=== PATIENT | female | born 1935 | race African-American/Black ===

== ENCOUNTER 2018-02-25 13:54 | Inpatient (IN) | payer MEDICARE ==
--- NOTE | 2018-02-25 15:00 | RAD ---
LEFT HIP 2 VIEWS: Date: 02/25/18 HISTORY: Leg pain. COMPARISON: None. FINDINGS: There is a mildly displaced left femoral neck fracture with impaction and mild varus angulation. The obturator ring appears to be intact. Moderate vascular calcifications. Mild soft tissue edema. IMPRESSION: Mildly impacted, varus angulated, and displaced left femoral neck fracture. POS: [facility]
[2018-02-25 15:02] LABS: Bilirubin Negative (Negative); Blood, Urine Moderate (Negative); Clarity CLOUDY (Clear); Glucose, Urine (Dipstick) Negative (Negative); Leukocyte Large (Negative); Nitrite Positive (Negative); Protein, Urine (Dipstick) 100 mg/dL (Neg-Trace); Specific Gravity, Urine 1.021 (1.002-1.036)
[2018-02-25 15:09] LABS: Bacteria/HPF 2+ HPF (None Seen); Hyaline Casts/LPF 0-3 HYALINE CAST LPF (0-3 Hyaline); Pathc Cast-AUWi Flag 0.43 (0-2.49); Squamous Epithelial None Seen HPF (0-3); WBC/HPF 21-50 HPF (0-3)
[2018-02-25] MEDS ORDERED: hydrALAZINE 20 MG/ML VIAL ONE (16:13)
[2018-02-25 16:45] LABS: #Eosinphils 0.3 thou/uL (0.0-0.7); #Monocytes 0.7 thou/uL (0.11-0.59); #Neutrophils 6.7 thou/uL (1.40-6.50); %Basophils 0.4 % (0.0-1.0); %Eosinophils 3.2 % (0.0-10.0); %Lymphocytes 11.1 % (21.0-51.0); %Monocytes 7.8 % (0.0-10.0); %Neutrophils 77.6 % (42.0-75.0); Hemoglobin 12.6 g/dL (12.0-16.0); Mean Corpuscular HGB CONC 32.9 g/dL (32.0-36.0); Mean Corpuscular Hemoglobin 28.5 pg (27.0-31.0); Mean Corpuscular Volume 86.7 fl (81.0-99.0); Mean Platelet Volume 8.6 fL (7.4-10.4); Platelet Count 195 thou/uL (130-400); RBC Distribution Width 13.6 % (11.5-14.5); Red Blood Cell (RBC) Count 4.43 mill/uL (4.20-5.40); White Blood Cell (WBC) Count 8.6 thou/uL (4.8-10.8)
[2018-02-25] MEDS ORDERED: cefTRIAXone\\ROCEPHIN 2 GM VIAL ONE (17:01)
[2018-02-25 17:11] LABS: ALT (SGPT) 17 U/L (8-55); AST (SGOT) 23 U/L (5-34); Alkaline Phosphatase 77 U/L (40-150); Anion Gap 15 mmol/L (10-20); BUN (Urea Nitrogen) 21 mg/dL (9.8-20.1); Bilirubin, Total 0.8 mg/dL (0.2-1.2); Calc. Creatinine Clearance 0 mL/min (70-130); Carbon Dioxide 23 mmol/L (23-31); Chloride 104 mmol/L (98-107); Estimated GFR-MDRD 50; Globulin 4.5 g/dL (2.4-3.5); Glucose 120 mg/dL (83-110); Potassium 3.8 mmol/L (3.5-5.1); Protein, Total 8.5 g/dL (6.0-8.3); Sodium 138 mmol/L (136-145)
[2018-02-25] MEDS ORDERED: Fentanyl 100 MCG/2 ML VIAL ONE (17:16)
--- NOTE | 2018-02-25 18:06 | ULT ---
LEFT LOWER EXTREMITY VENOUS DOPPLER ULTRASOUND 02/25/18 COMPARISON: None. HISTORY: Pain, hip fracture. TECHNIQUE: Multiplanar alexander scale sonographic imaging of the venous structures of the left lower extremity obtai cynthia with color flow and spectral analysis. FINDINGS: Left common femoral vein, greater saphenous vein, profunda femoral vein, femoral vein, popliteal vein , and posterior tibial vein appear patent. No evidence for DVT. IMPRESSION: No evidence for deep venous thrombosis of the left lower extremity. POS: [facility]
[2018-02-25] MEDS ORDERED: Lorazepam 2 MG/ML VIAL ONE (18:27)
[2018-02-25] MEDS ORDERED: Promethazine HCl 25 MG/ML VIAL IM PRN ×2 (18:30)
[2018-02-25] MEDS ORDERED: Dextrose 5% in Water 1,000 ML IV PRN (18:30)
[2018-02-25] MEDS ORDERED: Ondansetron HCl/PF 4 MG/2 ML Vial IVP PRN (18:30)
[2018-02-25] MEDS ORDERED: Ondansetron ODT 4 MG TAB PO PRN (18:30)
[2018-02-25] MEDS ORDERED: Dextrose 50% Abboject 50 ML SYRINGE SLOW IVP PRN (18:30)
[2018-02-25 18:38] LABS: CKMB 1.6 ng/mL (0-6.6); Troponin I Less than 0.010 ng/mL (< 0.028)
[2018-02-25] MEDS ORDERED: CEFAZOLIN/Water 2 GM/20 ML SYRINGE SLOW IVP SCH (18:45)
--- NOTE | 2018-02-25 18:47 | RAD ---
FRONTAL RADIOGRAPH CHEST 02/25/18 COMPARISON: 07/11/14 HISTORY: Leg pain. FINDINGS: No pneumothorax, pleural fluid, focal consolidation, or alveolar edema. Midline sternotomy wires and mediastinal clips are present. A rounded area of increased density is noted at the left cardiophrenic angle suggesting hiatal hernia . IMPRESSION: No acute findings. POS: [facility]
[2018-02-25 19:17] LABS: PTT 26.8 SEC (22.9-36.1); Prothrombin Time 12.9 SEC (12.0-14.7)
[2018-02-25 19:28] LABS: Magnesium 1.8 mg/dL (1.6-2.6); Phosphorus 2.3 mg/dL (2.3-4.7)
--- NOTE | 2018-02-25 19:32 | CT ---
CT OF THE HEAD WITHOUT CONTRAST 02/25/18 COMPARISON: None. HISTORY: Fall, trauma, pain. TECHNIQUE: Serial axial CT imaging at 5 mm intervals from the vertex through the skull base without contrast. FINDINGS: The imaged paranasal sinuses and mastoid air cells are well aerated. There is atherosclerotic calcifi cation of the cavernous carotid arteries and the distal left vertebral artery. No displaced calvarial fracture is noted. There is diffuse cerebral volume loss with associated prominence of the CSF containing spaces. There is periventricular, deep, and subcortical white matter hypodensity noted, evidence of significant sma ll vessel disease. No intracranial hemorrhage. There is a focus of hypodensity in the right cerebella r hemisphere on image 12 suggesting an old lacunar infarction. IMPRESSION: Cerebral volume loss and small vessel disease with no displaced calvarial fracture or evidence of int racranial hemorrhage. POS: [facility]
[2018-02-25] MEDS: DEXTROSE 5% IVPB SCH (20:10)
[2018-02-25] MEDS: TRIMETHOPRIM IVPB SCH (20:10)
[2018-02-25] MEDS: SULFAMETHOXAZOLE IVPB SCH (20:10)
[2018-02-25] MEDS: Sodium Chloride 0.9% 1,000 ML IV SCH (20:10)
[2018-02-25] MEDS: WATER IVPB SCH (20:10)
[2018-02-25] MEDS: Atorvastatin Calcium 20 MG TAB PO SCH ×2 (22:32→22:42)
[2018-02-25] MEDS: Donepezil HCl 10 MG TAB PO SCH ×2 (22:32→22:42)
[2018-02-25] MEDS: Famotidine/PF 20 mg/2ml Vial SLOW IVP SCH (22:32)
--- NOTE | 2018-02-25 22:53 | CON ---
DATE OF CONSULTATION: 02/25/2018 PREOPERATIVE DIAGNOSIS: Left femoral neck fracture. HISTORY OF PRESENT ILLNESS: The patient is a poor historian with Alzheimer disease, who fell unwitne ssed in her own home and suffered a fracture of her femoral neck. History is complicated by the fact that she has fairly severe Alzheimer. PHYSICAL EXAMINATION: GENERAL: Shows a woman who is in no distress unless her left leg is moved. She is a very poor histo dionicio. She claims only be having pain in her left hip. EXTREMITIES: Shows her left leg is short. She has pain with any rotation of the hip. She has no pa lpable pulses in the left foot. DIAGNOSTIC DATA: Radiograph showed displaced femoral neck fracture. PLAN: Hemiarthroplasty of left hip. Family understands the risk of infection, stiffness, nerve or b lood vessel damage, blood clots, transfusion, . They would like to proceed with surgery.
[2018-02-26] MEDS: Acetaminophen 1,000 MG in Premix Bag 1 BAG IVPB SCH ×5 (00:07→23:44)
--- NOTE | 2018-02-26 00:39 | HP ---
DATE OF ADMISSION: 02/25/2018 ATTENDING PHYSICIAN: Dr. Ennis. TRAUMA ACTIVATION: Not applicable. HISTORY OF PRESENT ILLNESS: Melissa uYen is an 82-year-old female with a past medical history of v ascular dementia, who presented to [facility] with a chief complaint of left leg pain. Per yifan noble's spouse at bedside, he found her on the floor 2-3 days ago. She has been immobile since. He brou ght her to the emergency room today for further evaluation and care. She was found to have a left hi p fracture. Orthopedic Surgery was notified and Trauma Services was asked to admit. Upon my evaluat ion, the patient is unable to vocalize exactly where her pain is at. She has a GCS of 14 secondary t o confusion. states her mental status is at baseline. Past medical history obtained primari ly from the ; however, he was unable to give the majority of the history. PAST MEDICAL HISTORY: Hyperlipidemia; dementia; peripheral vascular disease, status post stenting of the left lower extremity. HOME MEDICATIONS: Atorvastatin 20 mg p.o. at bedtime, Aricept 5 mg p.o. daily, ASA 81 mg p.o. daily, vitamin D3 daily. PAST SURGICAL HISTORY: The patient has a history of left lower extremity stenting and an unknown abd ominal surgery. There is history of CABG according to history and physical in 2013. SOCIAL HISTORY: The patient lives at home with , ambulates independently. 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 No alcohol or illicit drug use. FAMILY HISTORY: Unobtainable. REVIEW OF SYSTEMS: Unobtainable. PHYSICAL EXAMINATION: VITAL SIGNS: Temperature 98.6, respirations 16, O2 sat 94% on room air, blood pressure 182/76, pulse 103. GENERAL: Well-developed elderly appearing female, somewhat disheveled, in no acute distress, resting in bed. HEENT: Normocephalic, atraumatic. NECK: Supple. Trachea is midline. There was no midline tenderness to palpation. CHEST: Atraumatic. No tenderness to palpation. Normal work of breathing, symmetric rise. LUNGS: Clear to auscultation bilaterally. CARDIOVASCULAR: Mildly tachycardic. No obvious murmurs, rubs, or gallops. ABDOMEN: Soft, nontender, nondistended. Bowel sounds are positive. MUSCULOSKELETAL: Bilateral upper extremities within normal limits. Left lower extremity shortened a nd externally rotated. Bilateral stasis dermatitis. She is neurovascularly intact distally at the s ite of her injury. Range of motion of left lower extremity is limited secondary to pain. NEUROLOGIC: GCS is 14 secondary to confusion. No focal deficit is noted. LABORATORY DATA: WBC 8.6, hemoglobin 12.6, hematocrit 38.4, platelet count 195. Sodium 138, chlorid e 104, potassium 3.8, carbon dioxide 23, BUN 21, creatinine 1.25, glucose 120. AST and ALT within no rmal limits. CK is 213. Troponin is less than 0.010. Urinalysis demonstrated proteinuria, moderate blood, positive urobilinogen, large amount of leukocyte esterase, positive nitrites, 21-50 wbc's, 2+ bacteria. RADIOGRAPHIC FINDINGS: X-ray of the left hip demonstrated a left femoral neck fracture. Ultrasound of the left lower extremity was negative for evidence of DVT. CT of the brain was negative for acute intracranial abnormality per radiology read, did show diffuse volume loss and evidence of previous s troke. EKG results, pending. ASSESSMENT: 1. Status post unwitnessed fall. 2. Left femoral neck fracture. 3. Acute traumatic pain. 4. Urinary tract infection, present on admission. 5. Acute kidney injury, present on admission. 6. Hypertension, present on admission. 7. History of dementia. 8. History of coronary artery disease. PLAN: 1. Admit to Trauma Services. 2. Orthopedic surgery has seen and evaluated the patient. Per discussion with Dr. Meier, he plans for operative intervention tomorrow. The patient should be n.p.o. after midnight. Gentle IV fluid h ydration. Empiric antibiotics for urinary tract infection. Follow culture data. P.O. and IV analge gurpreet perioperatively. Postoperative PT and OT. Case management postoperatively for eventual disposit ion 3. Deep venous thrombosis and gastritis prophylaxis as appropriate. The patient has been seen and e valuated with Dr. Ennis. Plans for admission were discussed with the patient and family. All questi ons were answered at the time of this dictation.
[2018-02-26 05:39] LABS: #Eosinphils 0.2 thou/uL (0.0-0.7); #Neutrophils 5.4 thou/uL (1.40-6.50); %Basophils 0.3 % (0.0-1.0); %Eosinophils 2.7 % (0.0-10.0); %Lymphocytes 13.3 % (21.0-51.0); %Monocytes 12.7 % (0.0-10.0); %Neutrophils 70.9 % (42.0-75.0); Hemoglobin 12.9 g/dL (12.0-16.0); Mean Corpuscular HGB CONC 32.2 g/dL (32.0-36.0); Mean Corpuscular Hemoglobin 28.3 pg (27.0-31.0); Mean Platelet Volume 9.3 fL (7.4-10.4); Platelet Count 159 thou/uL (130-400); RBC Distribution Width 13.6 % (11.5-14.5); Red Blood Cell (RBC) Count 4.55 mill/uL (4.20-5.40); White Blood Cell (WBC) Count 7.6 thou/uL (4.8-10.8)
[2018-02-26 05:53] LABS: Anion Gap 15 mmol/L (10-20); BUN (Urea Nitrogen) 16 mg/dL (9.8-20.1); Calc. Creatinine Clearance 0 mL/min (70-130); Calcium 9.1 mg/dL (7.8-10.44); Carbon Dioxide 21 mmol/L (23-31); Chloride 105 mmol/L (98-107); Estimated GFR-MDRD 69; Glucose 99 mg/dL (83-110); Potassium 3.8 mmol/L (3.5-5.1); Sodium 137 mmol/L (136-145)
[2018-02-26 06:11] VITALS: BMI 20.8
[2018-02-26] MEDS: DEXTROSE 5% IVPB SCH (08:55)
[2018-02-26] MEDS: SULFAMETHOXAZOLE IVPB SCH (08:55)
[2018-02-26] MEDS: TRIMETHOPRIM IVPB SCH (08:55)
[2018-02-26] MEDS: WATER IVPB SCH (08:55)
[2018-02-26] MEDS ORDERED: CEFAZOLIN/Water 2 GM/20 ML SYRINGE ONE (09:55)
[2018-02-26] MEDS ORDERED: Milk Of Magnesia 30 ML UDCUP PO PRN (10:45)
[2018-02-26] MEDS ORDERED: Fleet Enema 133 ML BOT PR PRN (10:45)
[2018-02-26] MEDS ORDERED: traMADol HCl 50 MG TAB PO PRN ×2 (10:45)
[2018-02-26] MEDS ORDERED: Ondansetron ODT 4 MG TAB PO PRN (10:45)
[2018-02-26] MEDS ORDERED: Tranexamic Acid 1,000 MG in Sodium Chloride 0.9% 100 ML IVPB SCH (10:45)
[2018-02-26] MEDS ORDERED: Bisacodyl 10 MG SUPP PR PRN (10:45)
[2018-02-26] MEDS ORDERED: Ondansetron HCl/PF 4 MG/2 ML Vial IVP PRN (10:45)
[2018-02-26] MEDS ORDERED: Cepastat Lozenges 1 LOZ PO PRN (10:45)
[2018-02-26] MEDS ORDERED: Fentanyl 100 MCG/2 ML VIAL ONE (10:54)
--- NOTE | 2018-02-26 12:49 | PRG ---
DATE OF SERVICE: 02/26/2018 ATTENDING PHYSICIAN: Dr. Ethan Ennis. SUBJECTIVE: Ms. Yuen is an 82-year-old female, who was admitted last p.m. after a ground level fal l 2-3 days ago. She had been immobile since the fall. She was taken to the Emergency Department whe re she was found to have a left hip fracture. She was admitted by Trauma Services. She was started on Bactrim for urinary tract infection present on admission. She has been stable overnight. She was evaluated by Dr. Meier, Orthopedic Surgery, and is scheduled for the operating room for fixation of her hip fracture today. OBJECTIVE: VITAL SIGNS: Temperature 98, pulse 81, respirations 16, O2 sat 98% on room air, and blood pressure 1 78/82. GENERAL: Elderly female lying in bed in no acute distress. HEENT: Atraumatic, normocephalic. PULMONARY: Bilateral breath sounds clear. No respiratory distress. HEART: Regular rate and rhythm. Heart sounds normal. ABDOMEN: Soft, nontender, nondistended. MUSCULOSKELETAL: Pain with movement of left hip. Neurovascular intact all extremities. NEUROLOGIC: GCS 14, E4, V4, M6. ASSESSMENT: 1. Status post unwitnessed fall. 2. Left femoral neck fracture. 3. Urinary tract infection, present on admission. 4. Acute kidney injury, present on admission, improving. 5. Hypertension, present on admission. 6. History of dementia. 7. History of coronary artery disease. PLAN: 1. The patient to go to OR today for fixation of fracture with Dr. Meier. 2. Resume home medications, we will return to the floor. 3. N.p.o. until after surgery. 4. Continue antibiotics for urinary tract infection. 5. Follow up on final urine culture. 6. Ultram as scheduled for pain control. 7. PT, OT evaluation after OR. 8. Case management consult for discharge planning. Anticipate patient will need nursing home fac ility or rehabilitation. The patient was reviewed with Dr. Ennis, who agrees with plan.
[2018-02-26] MEDS: hydrALAZINE 20 MG/ML VIAL SLOW IVP PRN (13:25)
--- NOTE | 2018-02-26 14:03 | RAD ---
LEFT HIP 2 VIEWS: Date: 02/26/18 HISTORY: Postop. FINDINGS: A total hip prosthesis has been placed, which is in good position. No evidence of fracture. IMPRESSION: 1. Placement of total hip prosthesis. 2. Incidental note is made of stents within the superficial femoral artery. POS: [facility]
--- NOTE | 2018-02-26 14:13 | OP ---
PREOPERATIVE DIAGNOSIS: Femoral neck fracture, left. POSTOPERATIVE DIAGNOSIS: Femoral neck fracture, left. SURGEON: Tom Meier M.D. ANESTHESIA: General. BLOOD LOSS: 150 mL. SPECIMEN: None. DRAINS: None. COMPLICATIONS: None. IMPLANTS USED: Ludmila Accolade 3.5 stem with a -4 neck, 47 mm Unitrax head. PROCEDURE IN DETAIL: After informed consent was obtained in the preoperative holding area, the patie nt was taken to the operative suite where general anesthesia was induced. The patient was then posit ioned in the lateral decubitus position. The hip was then prepped and draped in usual sterile fashio n. The patient received preoperative antibiotics. Prior to incision, time-out was called and all me mbers of the surgical team agreed upon site, surgeon, and patient. After this, a longitudinal incisi on was made directly over the trochanter, noted by palpation extending 2 fingerbreadths above and bel ow the trochanter. The deeper subcutaneous layer was undermined with Bovie electrocautery. The ilio tibial band was encountered and incised sharply and the plane below this was developed bluntly. [facility] to hold this opened. The lateral aspect of the trochanter and the abduct or muscles were encountered and then reflected anteriorly off the trochanter using Bovie electrocaute ry. Once this was completed, the anterior capsule was then encountered and identified and copious ca psulotomy was carried out, exposing the femoral neck and head. Dislocation maneuver was then performe d and an in situ provisional neck cut was then made using the oscillating saw. Attention was then tu rned to acetabular preparation and sequential reaming was carried out up to the appropriate diameter and a trial was then malleted into place with good firm resistance and no pullout. The permanent tavia tabular shell was then malleted squarely into place, as was the appropriate liner. Once completed, t he wound was copiously irrigated and attention was then turned to femoral preparation. Flexion and ex ternal rotation was performed of the exposed thigh and femoral elevators were then placed at the prox imal aspect of the wound. Canal finder was used to establish the length of the canal and sequential reaming was carried out, followed by broaching. Once the appropriate stability was established with the trial broaches with both flexion, extension and rotational stability, we did trial with neutral a nd 2 mm offset incremental necks. Once the appropriate size was decided upon, with good stability no milly with flexion, extension, internal and external rotation and shuck being negative, we removed the femoral trial broach and malletted into place the permanent prosthesis with good firm fit, which was also stable to rotation. Again, the hip felt very stable to flexion, extension, internal and externa l rotation. Leg lengths appeared near anatomic clinically and we were quite happy with prosthesis pl acement. Copious irrigation was then carried out through the entirety of the wound. Primary closure of the abductors was accomplished with interrupted #2 Vicryl [id number] stitches and the IT ban d was then closed with interrupted #2 Vicryl, oversewn with a #2 running barbed Quill stitch. Subcut aneous fascia was closed with running barbed Quill stitch and a subcuticular Monocryl barbed Quill st itch was used for skin closure and augmented with skin cement. A sterile dressing was applied. The p rocedure was terminated without any complication. All counts were correct. The patient was awakened in the operative suite and taken to the recovery room in stable condition.
[2018-02-26] MEDS ORDERED: Glycopyrrolate 0.2 MG/ML 5 ML SYRINGE ONE (15:14)
[2018-02-26] MEDS ORDERED: PHENYLEPHRINE-NS 100 MCG/ML 10 ML SYRINGE ONE (15:14)
[2018-02-26] MEDS ORDERED: Lidocaine 1% PF 5 ML VIAL ONE (15:14)
[2018-02-26] MEDS ORDERED: ePHEDrine/0.9% NaCl/PF SYRINGE 50 mg/10 ml ONE (15:14)
[2018-02-26] MEDS ORDERED: PROPOFOL 200 MG/20 ML VIAL ONE (15:14)
[2018-02-26] MEDS: Donepezil HCl 10 MG TAB PO SCH ×2 (16:59→20:27)
[2018-02-26] MEDS: Amlodipine 5 MG TAB PO SCH (16:59)
[2018-02-26] MEDS: Sodium Chloride 0.9% 1,000 ML IV SCH (16:59)
[2018-02-26] MEDS: CEFAZOLIN/Water 2 GM/20 ML SYRINGE SLOW IVP SCH (18:17)
[2018-02-26] MEDS: D5 1/2 NS w/20 mEq KCL 1,000 ML IV SCH (18:19)
[2018-02-26] MEDS: Atorvastatin Calcium 20 MG TAB PO SCH (20:27)
[2018-02-26] MEDS: Aspirin 325 MG TAB PO SCH (20:27)
[2018-02-26] MEDS: Senokot S 8.6-50 MG TAB PO SCH (20:28)
[2018-02-26] MEDS: Famotidine/PF 20 mg/2ml Vial SLOW IVP SCH (20:28)
[2018-02-27] MEDS: D5 1/2 NS w/20 mEq KCL 1,000 ML IV SCH (02:56)
[2018-02-27] MEDS: CEFAZOLIN/Water 2 GM/20 ML SYRINGE SLOW IVP SCH (02:57)
[2018-02-27 04:44] LABS: #Eosinphils 0.2 thou/uL (0.0-0.7); #Lymphocytes 0.8 thou/uL (1.20-3.40); #Monocytes 0.9 thou/uL (0.11-0.59); #Neutrophils 6.5 thou/uL (1.40-6.50); %Basophils 0.4 % (0.0-1.0); %Eosinophils 2.8 % (0.0-10.0); %Lymphocytes 9.1 % (21.0-51.0); %Monocytes 10.5 % (0.0-10.0); %Neutrophils 77.3 % (42.0-75.0); Hemoglobin 11.3 g/dL (12.0-16.0); Mean Corpuscular HGB CONC 32.5 g/dL (32.0-36.0); Mean Corpuscular Hemoglobin 28.5 pg (27.0-31.0); Mean Corpuscular Volume 87.5 fl (81.0-99.0); Mean Platelet Volume 8.9 fL (7.4-10.4); Platelet Count 199 thou/uL (130-400); RBC Distribution Width 13.5 % (11.5-14.5); Red Blood Cell (RBC) Count 3.98 mill/uL (4.20-5.40); White Blood Cell (WBC) Count 8.4 thou/uL (4.8-10.8)
[2018-02-27 05:02] LABS: Anion Gap 15 mmol/L (10-20); BUN (Urea Nitrogen) 13 mg/dL (9.8-20.1); Calc. Creatinine Clearance 32 mL/min (70-130); Calcium 8.6 mg/dL (7.8-10.44); Carbon Dioxide 19 mmol/L (23-31); Chloride 105 mmol/L (98-107); Estimated GFR-MDRD 47; Glucose 116 mg/dL (83-110); Potassium 4.1 mmol/L (3.5-5.1); Sodium 135 mmol/L (136-145)
[2018-02-27] MEDS ORDERED: Acetaminophen 325 MG TAB PO PRN (06:00)
[2018-02-27] MEDS: Aspirin 325 MG TAB PO SCH ×2 (08:23→20:00)
[2018-02-27] MEDS: Senokot S 8.6-50 MG TAB PO SCH ×2 (08:23→20:03)
[2018-02-27] MEDS: Ferrous Gluconate 324 MG TAB PO SCH ×2 (08:23→18:41)
[2018-02-27] MEDS: Multivitamin W/ Minerals 1 TAB PO SCH (08:24)
[2018-02-27] MEDS: Donepezil HCl 10 MG TAB PO SCH ×2 (08:24→21:13)
[2018-02-27] MEDS: Amlodipine 5 MG TAB PO SCH (08:24)
[2018-02-27 09:30] LABS: Magnesium 1.7 mg/dL (1.6-2.6); Phosphorus 3.1 mg/dL (2.3-4.7)
[2018-02-27] MEDS ORDERED: Magnesium Sulfate 2 GM in Sodium Chloride 0.9% 100 ML IVPB SCH (13:15)
--- NOTE | 2018-02-27 13:29 | PRG ---
DATE OF SERVICE: 02/27/2018 ATTENDING PHYSICIAN: Dr. Ethan Ennis. SUBJECTIVE: Ms. Yuen is an 82-year-old female, who has had a ground-level fall 2 days ago. She is now postoperative day #1, status post left hip hemiarthroplasty. [facility] She is currently being treated for urinary tract infection that was present on admission. Repeat labs this morning show an elevation in her creatinine from 0.94-1.30. Pain has been well cont rolled with IV and oral analgesia. OBJECTIVE: VITAL SIGNS: Temperature 97.9, pulse 88, respirations 16, O2 sat 99% room air, blood pressure 192/83 . GENERAL: Elderly female lying in bed in no acute distress. HEENT: Atraumatic, normocephalic. PULMONARY: Bilateral breath sounds clear. No respiratory distress. CARDIOVASCULAR: Regular rate and rhythm. Heart sounds normal. ABDOMEN: Soft, nontender, nondistended. MUSCULOSKELETAL: Surgical dressing to left hip, clean, dry, and intact. Neurovascularly intact in a ll extremities. Cap refill brisk in all extremities. NEUROLOGIC: GCS of 14. LABORATORY DATA: Hematology: WBC 8.4, RBC 3.98, hemoglobin 11.3, hematocrit 34.9, platelets 199. C hemistry: Sodium 135, potassium 4.1, chloride 105, carbon dioxide 19, BUN 13, creatinine 1.30, gluco se 116, calcium 8.6, phosphorus 3.1, magnesium 1.7. ASSESSMENT: 1. Status post unwitnessed fall. 2. Left femoral neck fracture. 3. Postoperative day #1 status post left hip hemiarthroplasty. 4. Urinary tract infection, present on admission. 5. Acute kidney injury, present on admission. 6. Hypertension, present on admission. 7. History of dementia, present on admission. 8. History of coronary artery disease. 9. Hypomagnesemia. 10. Acute traumatic pain. PLAN: 1. Transition from IV to oral antibiotics. 2. Correct electrolyte imbalances. 3. Continue regular diet. 4. Add Ensure for supplementation. 5. Ultram scheduled and p.r.n. for pain control. 6. Schedule Tylenol. 7. Continue PT/OT evaluation. 8. Case management consult for discharge planning. Anticipate patient will need penitentiary fac ility. The patient was seen and examined with Dr. Ennis, who agrees with plan.
[2018-02-27] MEDS ORDERED: Magnesium 2 GM/NS 0.9% 100 ML 2 GM in Premix Bag 1 BAG IVPB SCH (13:30)
[2018-02-27] MEDS: Acetaminophen 500 MG TAB PO SCH ×2 (13:57→18:42)
[2018-02-27] MEDS: traMADol HCl 50 MG TAB PO SCH ×2 (13:57→18:40)
[2018-02-27] MEDS: Famotidine 20 MG TAB PO SCH (20:03)
[2018-02-27] MEDS: Atorvastatin Calcium 20 MG TAB PO SCH (20:03)
[2018-02-27] MEDS: Sulfameth/Trimethoprim DS 800-160mg TAB PO SCH (20:04)
[2018-02-28] MEDS: traMADol HCl 50 MG TAB PO SCH ×4 (01:02→18:51)
[2018-02-28] MEDS: Acetaminophen 500 MG TAB PO SCH ×4 (01:02→18:51)
[2018-02-28 05:37] LABS: #Eosinphils 0.2 thou/uL (0.0-0.7); #Lymphocytes 0.8 thou/uL (1.20-3.40); #Monocytes 0.9 thou/uL (0.11-0.59); #Neutrophils 7.5 thou/uL (1.40-6.50); %Basophils 0.5 % (0.0-1.0); %Monocytes 9.4 % (0.0-10.0); %Neutrophils 80.2 % (42.0-75.0); Hemoglobin 10.2 g/dL (12.0-16.0); Mean Corpuscular Hemoglobin 28.3 pg (27.0-31.0); Mean Corpuscular Volume 88.3 fl (81.0-99.0); Mean Platelet Volume 8.5 fL (7.4-10.4); Platelet Count 211 thou/uL (130-400); RBC Distribution Width 13.5 % (11.5-14.5); Red Blood Cell (RBC) Count 3.62 mill/uL (4.20-5.40); White Blood Cell (WBC) Count 9.4 thou/uL (4.8-10.8)
[2018-02-28 06:02] LABS: Anion Gap 13 mmol/L (10-20); BUN (Urea Nitrogen) 19 mg/dL (9.8-20.1); Calc. Creatinine Clearance 32 mL/min (70-130); Calcium 8.9 mg/dL (7.8-10.44); Carbon Dioxide 21 mmol/L (23-31); Chloride 106 mmol/L (98-107); Estimated GFR-MDRD 48; Glucose 113 mg/dL (83-110); Magnesium 2.1 mg/dL (1.6-2.6); Phosphorus 3.4 mg/dL (2.3-4.7); Potassium 4.5 mmol/L (3.5-5.1); Sodium 135 mmol/L (136-145)
[2018-02-28] MEDS: Senokot S 8.6-50 MG TAB PO SCH ×2 (09:06→21:26)
[2018-02-28] MEDS: Donepezil HCl 10 MG TAB PO SCH ×2 (09:06→21:25)
[2018-02-28] MEDS: Sulfameth/Trimethoprim DS 800-160mg TAB PO SCH ×2 (09:06→21:27)
[2018-02-28] MEDS: Amlodipine 5 MG TAB PO SCH (09:06)
[2018-02-28] MEDS: Aspirin 325 MG TAB PO SCH ×2 (09:06→21:26)
[2018-02-28] MEDS: Multivitamin W/ Minerals 1 TAB PO SCH (09:07)
[2018-02-28] MEDS: Ferrous Gluconate 324 MG TAB PO SCH ×2 (09:07→18:51)
--- NOTE | 2018-02-28 11:15 | PRG-2 ---
DATE OF SERVICE: 02/28/2018 SUBJECTIVE: Ms. Yuen is an 82-year-old female status post ground level fall, postoperative day #2, left hip arthroplasty. The patient has been stable on the surgical floor. The patient is demented and irritable this morning following multiple urinary catheterizations because of an inability to uri nikos. The patient has not been complaining of pain and her family states that she is otherwise comfo rtable. OBJECTIVE: VITAL SIGNS: Blood pressure 181/69, pulse 96, respiration 16, oxygen saturation was 96% on room air, temperature is 98.4. GENERAL: Elderly female lying in bed in no acute distress. HEENT: Atraumatic and normocephalic. RESPIRATORY: Clear lung sounds bilaterally. CARDIOVASCULAR: Regular rate and rhythm. No murmurs. ABDOMEN: Soft, nontender, nondistended. MUSCULOSKELETAL: Surgical dressing to left hip, clean, dry, and intact. NEUROLOGIC: GCS of 15. LABORATORY DATA: Hemoglobin 10.2, hematocrit 32.0, white blood cell 9.4, platelets 211. Sodium 135, potassium 4.5, chloride 106, bicarb 21, BUN 19, creatinine 1.28, glucose 113. ASSESSMENT: 1. Status post fall. 2. Left femoral neck fracture status post postop day 2, left hip hemiarthroplasty. 3. Urinary tract infection present on admission. 4. Acute kidney injury present on admission. 5. Hypertension, present on admission. 6. Dementia, present on admission. 7. History of coronary artery disease. 8. Hypomagnesemia, resolved. 9. Acute traumatic pain. Blood cultures positive for a presumptive Corynebacterium species 1 out of 2. Awaiting further sensi tivities. PLAN: We will continue oral antibiotics at this time until sensitivities have been run because it wa s likely a contaminant. Electrolyte abnormalities have been corrected. We will continue regular t and add Ensure for supplementation. The patient is having adequate pain control. We will continue her regimen. PT and OT evaluation has been placed. The patient has been seen by case management fo r discharge planning and her family would like to be sent to a correction facility at [facility] and they will be working on that going forward. Dr. Ennis, trauma attending, is aware of this and agrees with the plan.
[2018-02-28] MEDS: Famotidine 20 MG TAB PO SCH (21:26)
[2018-02-28] MEDS: Atorvastatin Calcium 20 MG TAB PO SCH (21:26)
[2018-02-28] MEDS: hydrALAZINE 20 MG/ML VIAL SLOW IVP PRN (21:36)
[2018-03-01] MEDS: traMADol HCl 50 MG TAB PO SCH ×3 (00:13→12:53)
[2018-03-01] MEDS: Acetaminophen 500 MG TAB PO SCH ×2 (03:02→09:18)
[2018-03-01 05:49] LABS: Hemoglobin 9.9 g/dL (12.0-16.0); Mean Corpuscular HGB CONC 31.9 g/dL (32.0-36.0); Mean Platelet Volume 8.1 fL (7.4-10.4); Platelet Count 215 thou/uL (130-400); RBC Distribution Width 13.6 % (11.5-14.5); Red Blood Cell (RBC) Count 3.53 mill/uL (4.20-5.40); White Blood Cell (WBC) Count 8.8 thou/uL (4.8-10.8)
[2018-03-01] MEDS ORDERED: traMADol HCl 50 MG TAB PO PRN (07:27)
[2018-03-01] MEDS: Aspirin 325 MG TAB PO SCH (09:16)
[2018-03-01] MEDS: Donepezil HCl 10 MG TAB PO SCH (09:16)
[2018-03-01] MEDS: Amlodipine 5 MG TAB PO SCH (09:17)
[2018-03-01] MEDS: Senokot S 8.6-50 MG TAB PO SCH (09:17)
[2018-03-01] MEDS: Ferrous Gluconate 324 MG TAB PO SCH (09:17)
[2018-03-01] MEDS: Multivitamin W/ Minerals 1 TAB PO SCH (09:17)
[2018-03-01 09:18] VITALS: BP 147/71; TEMP 98.1
--- NOTE | 2018-03-01 11:52 | DIS-2 ---
DATE OF ADMISSION: 02/25/2018 DATE OF DISCHARGE: 03/01/2018 RESIDENT: Dr. Cunha. ADMITTING ATTENDING: Dr. Ennis. DISCHARGE ATTENDING: Dr. Ennis. CONSULTATIONS: Orthopedics, Dr. Meier; Case Management; OT evaluation and treatment; PT evaluation and treatment. PROCEDURES: On 02/25/2018, the patient underwent a hip x-ray that showed mildly impacted varus angulated and displaced left femoral neck fracture. On 02/25/2018, the patient underwent a vascular ultrasound that showed no evidence for DVT of the left lower extremity. On 02/25/2018, the patient underwent a brain CT that showed cerebral volume loss and small vessel disease with no displaced calvarial fracture or evidence of intracranial hemorrhage. On 02/25/2018, the patient underwent a chest x-ray that showed no acute findings. On 02/26/2018, the patient underwent a femoral neck fracture repair of her left femoral neck by Dr. Meier. On 02/26/2018, the patient underwent a hip x-ray that showed placement of total hip prosthesis. Incidental note is made of stents within the superficial femoral artery. PRIMARY DISCHARGE DIAGNOSES: 1. Status post ground-level fall. 2. Left femoral neck fracture, status post postoperative day left hip hemiarthroplasty. 3. Urinary tract infection, present on admission. 4. Acute kidney injury, present on admission. 5. Hypertension, present on admission. 6. Dementia. 7. History of coronary artery disease. 8. Acute traumatic pain. 9. Urinary retention. DISCHARGE MEDICATIONS: 1. Donepezil 10 mg p.o. b.i.d. 2. Atorvastatin 20 mg p.o. at bedtime. 3. Vitamin D3 2000 units p.o. daily. 4. Acetaminophen 1000 mg p.o. q.6 hours. 5. Amlodipine 5 mg p.o. daily. 6. Aspirin 81 mg p.o. b.i.d. 7. Famotidine 20 mg p.o. at bedtime. 8. Fergon 324 mg p.o. b.i.d. with meals. 9. Hydralazine 10 mg p.r.n. 10. DuoNeb 3 mL nebulized t.i.d. 11. Theragran 1 tab p.o. daily. 12. Senokot 2 tabs p.o. b.i.d. 13. Tramadol 50 mg p.o. q.6 hours. DISCONTINUED MEDICATIONS: Aspirin 81 mg p.o. daily. HISTORY OF PRESENT ILLNESS AND HOSPITAL COURSE: The patient is an 82-year-old female with past medical history of vascular dementia, who presents to [facility] with chief complaint of left leg pain. Per the patient's spouse at bedside, he found to have a fall 2-3 days ago. She has been immobile since. He brought her to the ER today for further evaluation and care. She was found to have left hip fracture. Orthopedic Surgery was notified and Trauma Service was asked to admit. Upon evaluation, the patient is unable to vocalize exactly where her pain is at. Her GCS is 14 secondary to confusion. Her states her mental status is at baseline. During this hospitalization, the patient had known dementia that returned to baseline. She did have a urine culture on admission that grew out E. coli resistant to ciprofloxacin and levofloxacin, and was treated with Bactrim for 4 days. Patient also had a blood culture with presumptive Corynebacterium on 09/14 , likely a contaminant. Blood cultures showed no growth at 48 hours. Patient was afebrile during this hospitalization. She was not tachycardic and did not have any other signs or symptoms of systemic infection. The patient has no new lab values with hemoglobin 12.6 on day of admission, trended to 9.9 on day of discharge. The patient had a creatinine that ranged from 0.94-1.30. CK of 213. Patient's urinalysis on admission did show a moderate amount of blood, positive for nitrites, large amount of leukocyte esterase, 21-50 urine white blood cells and 2+ urine bacteria. The patient did have an episode where she was not able to urinate on herself and so in and out catheterization was performed on her on 02/28/2018. However, she was still not able to urinate and a Govea catheter was placed back in to be removed in the future with a urology evaluation from there. PHYSICAL EXAMINATION: On day of discharge, VITAL SIGNS: Blood pressure 147/71, temperature is 98.1, pulse 99, respiratory rate is 18, oxygen saturation 96% on room air. GENERAL: Elderly female lying in bed in no acute distress. HEENT: Atraumatic and normocephalic. RESPIRATORY: Clear lung sounds to auscultation bilaterally. No wheezing. CARDIOVASCULAR: Regular rate and rhythm, no murmurs. ABDOMEN: Soft, nontender, nondistended. MUSCULOSKELETAL: Surgical dressing to left hip, clean, dry, and intact. NEUROLOGIC: GCS of 15. Patient, otherwise, tolerated the hospitalization well. Her dementia returned to baseline and will be placed into a long-term care facility for further long- term management. No other complications during his hospitalization. The patient was discharged in appropriate condition. DISPOSITION: Stable. DISCHARGE INSTRUCTIONS: Location: She will be discharged to the long-term care facility in [place]. Diet will be as tolerated. Activity will be with orthopedic limitations to the left hip and followup will be with both Dr. Meier in 3-4 weeks as well as her primary care provider, Dr. Gill, in the near future once she establishes at her long-term care facility. ALETHEA
== END 2018-03-01 14:28 | DRG 470 ==
LOC: ERS 13:54 → SURG A 18:30
PROVIDERS: ADMIT Surgery; ATTEND Surgery
PROC: 0SRB02A Replacement of Left Hip Joint with Metal on Polyethylene Synthetic Substitute, Uncemented, Open Approach (ICD-10-PCS; principal; 2018-02-26)
DX: S72.002A Fracture of unspecified part of neck of left femur, initial encounter for closed fracture (principal); N39.0 Urinary tract infection, site not specified; N17.9 Acute kidney failure, unspecified; G30.9 Alzheimer's disease, unspecified; F02.80 Dementia in other diseases classified elsewhere, unspecified severity, without behavioral disturbance, psychotic disturbance, mood disturbance, and anxiety; I73.9 Peripheral vascular disease, unspecified; I10 Essential (primary) hypertension; F01.50 Vascular dementia, unspecified severity, without behavioral disturbance, psychotic disturbance, mood disturbance, and anxiety; R33.9 Retention of urine, unspecified; E83.42 Hypomagnesemia; I25.10 Atherosclerotic heart disease of native coronary artery without angina pectoris; E78.5 Hyperlipidemia, unspecified; Z95.820 Peripheral vascular angioplasty status with implants and grafts; Z87.891 Personal history of nicotine dependence; W18.30XA Fall on same level, unspecified, initial encounter
CPT/HCPCS: 36415; 70450; 71045; 80048; 80053; 81003; 81015; 82553; 83735; 84100; 84484; 85025; 85027; 85610; 85730; 87040; 87077; 87086; 87186; 93005; 94640; 94760; A4353; G0390; G8981-GP-CK; G8982-GP-CI; G8987-GO-CM; G8988-GO-CL; J0131; J0360; J0696; J2001; J2060; J2550; J2704; J3010; J3475; J3490; J7050; J7070; J7620; S0028

== ENCOUNTER 2018-03-03 05:03 | Emergency (ER) | payer MEDICARE ==
--- NOTE | 2018-03-03 08:31 | RAD ---
SINGLE VIEW OF PELVIS: Date: 03/03/18 COMPARISON: None. HISTORY: Fall this morning with pelvic pain. FINDINGS: Single view of the pelvis shows no evidence of acute fracture or dislocation. The patient is status p ost left hip arthroplasty. There is no evidence of consolidation, mass, or pleural effusion. Vascular calcifications are seen. Stent are seen in both lower extremities. IMPRESSION: No evidence of acute osseous abnormality. POS: [facility]
--- NOTE | 2018-03-03 10:00 | CT ---
PRELIMINARY REPORT/[facility]/EMERGENTY AFTER-HOURS PROCEDURE CT Cervical Spine Without Intravenous Contrast CLINICAL HISTORY: 82 years old, female; Injury or trauma; Fall; Initial encounter; Abrasion; Patient HX: F82 reports to ed via ems C/O fall. Pt reports falling this morning. Pt reports hitting head. Pt reports neck pain. Ems reports no loc. TECHNIQUE: Axial computed tomography images of the cervical spine without intravenous contrast. Coronal and sagi ttal reformatted images were created and reviewed. COMPARISON: No relevant prior studies available. FINDINGS: Vertebrae: No acute cervical spine fracture is demonstrated. Discs/spinal canal/neural foramina: The vertebral foramen are grossly intact. No spinal canal stenosi s. Soft tissues: Normal. Lung apices: There are emphysematous changes in the lung apices. IMPRESSION: No acute cervical spine fracture is demonstrated. Thank you for allowing us to participate in the care of your patient. Dictated and Authenticated by: Michael Rodriges MD 03/03/2018 6:20 AM Central Time ([place] & [place]) FINAL REPORT CT CERVICAL SPINE WITH CORONAL AND SAGITTAL REFORMATIONS: Date: 03/03/18 FINDINGS/IMPRESSION: I agree with the preliminary report given by Mikie. POS: [facility]
--- NOTE | 2018-03-03 10:01 | CT ---
PRELIMINARY REPORT/[facility]/EMERGENTY AFTER-HOURS PROCEDURE CT Head Without Intravenous Contrast CLINICAL HISTORY: 82 years old, female; Injury or trauma; Fall; Initial encounter; Abrasion; Head, generalized; Patient HX: F82 reports to ed via ems C/O fall. Pt reports falling this morning. Pt reports hitting head. Pt reports neck pain. Ems reports no loc. TECHNIQUE: Axial computed tomography images of the head/brain without intravenous contrast. COMPARISON: No relevant prior studies available. FINDINGS: Brain: There are confluent areas of hypoattenuation within the periventricular and subcortical white matter compatible with moderate chronic microvascular ischemic change. No hemorrhage. Ventricles: Normal. No ventriculomegaly. Bones/joints: Normal. No acute fracture. Soft tissues: There is a 2 x 0.6 cm RIGHT frontal scalp hematoma. Sinuses: Unremarkable as visualized. No acute sinusitis. Mastoid air cells: Unremarkable as visualized. No mastoid effusion. IMPRESSION: No acute intracranial hemorrhage. Thank you for allowing us to participate in the care of your patient. Dictated and Authenticated by: Michael Rodriges MD 03/03/2018 6:18 AM Central Time ([place] & [place]) FINAL REPORT CT BRAIN WITHOUT CONTRAST: Date: 03/03/18 FINDINGS/IMPRESSION: I agree with the preliminary report given by vR. Comparison made with exam of 02/25/18. Chronic intracranial changes are again seen without evidence o f acute intracranial process. POS: [facility]
== END 2018-03-03 06:22 | disposition home or self-care (01) ==
LOC: ERS 05:03
DX: S09.90XA Unspecified injury of head, initial encounter (principal); S16.1XXA Strain of muscle, fascia and tendon at neck level, initial encounter; S70.02XA Contusion of left hip, initial encounter; E78.5 Hyperlipidemia, unspecified; Z79.899 Other long term (current) drug therapy; W18.30XA Fall on same level, unspecified, initial encounter
CPT/HCPCS: 70450; 72125; 72170

== ENCOUNTER 2018-03-22 05:33 | Emergency (ER) | payer MEDICARE ==
[2018-03-22] MEDS ORDERED: Bisacodyl 10 MG SUPP ONE (06:12)
--- NOTE | 2018-03-22 09:23 | RAD ---
KUB: Indication: History of constipation. FINDINGS: Again seen is a large Staghorn calculus within the superior pole of the right kidney when compared to a prior dated 12-05-12. There are vascular calcifications seen bilaterally. There is a moderate amoun t of retained stool within the region of the rectum. Bowel gas pattern is nonobstructed. Lung bases a re clear. Surgical clips within the upper abdomen are stable. Diffuse osteopenia is similar. There is a left hip endoprosthesis. There is partial visualization of endovascular stent in the proximal righ t thigh. IMPRESSION: Moderate amount of retained stool within the rectum. POS: [facility]
== END 2018-03-22 07:35 | disposition home or self-care (01) ==
LOC: ERS 05:33
DX: K59.00 Constipation, unspecified (principal); E78.5 Hyperlipidemia, unspecified; F03.90 Unspecified dementia, unspecified severity, without behavioral disturbance, psychotic disturbance, mood disturbance, and anxiety; Z79.899 Other long term (current) drug therapy
CPT/HCPCS: 74018

== ENCOUNTER 2018-08-02 12:10 | Inpatient (IN) | payer MEDICARE ==
--- NOTE | 2018-08-02 12:55 | CT ---
NONCONTRAST BRAIN CT SCAN: HISTORY: An 83-year-old female with a history of stroke alert. Right-sided weakness. COMPARISON: 03/03/2018 FINDINGS: There is severe bilateral atrophy and chronic white matter ischemic change. There is some generalize d ventriculomegaly. No focal mass or midline shift. No intraaxial or extraaxial hemorrhage. IMPRESSION: Atrophy and chronic white matter ischemic change without mass or bleed. Stable from 03/03/2018. Findings were discussed with Dr. Gaspar at 12:36 p.m. CODE CR POS: [facility]
--- NOTE | 2018-08-02 12:58 | RAD ---
SINGLE VIEW OF THE CHEST: Comparison: 02-25-18 History: Slurred speech and right sided weakness. Altered mental status. FINDINGS: Single view of the chest shows a normal sized cardiomediastinal silhouette. Patient is status post st ernotomy. There is no evidence of consolidation, mass or pleural effusion. IMPRESSION: No evidence of acute cardiopulmonary disease. POS: [facility]
[2018-08-02 13:35] LABS: #Eosinphils 0.1 thou/uL (0.0-0.7); #Lymphocytes 0.8 thou/uL (1.20-3.40); #Monocytes 0.5 thou/uL (0.11-0.59); #Neutrophils 5.7 thou/uL (1.40-6.50); %Eosinophils 0.9 % (0.0-10.0); %Lymphocytes 11.4 % (21.0-51.0); %Monocytes 6.8 % (0.0-10.0); %Neutrophils 80.9 % (42.0-75.0); Hemoglobin 11.4 g/dL (12.0-16.0); Mean Corpuscular Hemoglobin 26.7 pg (27.0-31.0); Mean Platelet Volume 8.4 fL (7.4-10.4); Platelet Count 327 thou/uL (130-400); RBC Distribution Width 14.2 % (11.5-14.5); Red Blood Cell (RBC) Count 4.28 mill/uL (4.20-5.40)
[2018-08-02 14:00] LABS: ALT (SGPT) 10 U/L (8-55); AST (SGOT) 15 U/L (5-34); Albumin 3.8 g/dL (3.4-4.8); Alkaline Phosphatase 65 U/L (40-150); Anion Gap 15 mmol/L (10-20); BUN (Urea Nitrogen) 21 mg/dL (9.8-20.1); Bilirubin, Total 0.7 mg/dL (0.2-1.2); CK (CPK) 192 U/L (29-168); Calc. Creatinine Clearance 0 mL/min (70-130); Calcium 9.7 mg/dL (7.8-10.44); Carbon Dioxide 21 mmol/L (23-31); Chloride 107 mmol/L (98-107); Estimated GFR-MDRD 59; Globulin 3.4 g/dL (2.4-3.5); Glucose 120 mg/dL (83-110); Potassium 4.2 mmol/L (3.5-5.1); Protein, Total 7.2 g/dL (6.0-8.3); Sodium 139 mmol/L (136-145)
[2018-08-02 14:07] LABS: CKMB 2.4 ng/mL (0-6.6); Troponin I Less than 0.010 ng/mL (< 0.028)
[2018-08-02 15:20] LABS: Bilirubin Negative (Negative); Blood, Urine Trace (Negative); Clarity CLEAR (Clear); Glucose, Urine (Dipstick) Negative (Negative); Leukocyte Trace (Negative); Nitrite Negative (Negative); Protein, Urine (Dipstick) 30 mg/dL (Neg-Trace); Specific Gravity, Urine 1.022 (1.002-1.036)
[2018-08-02 15:22] LABS: Bacteria/HPF None Seen HPF (None Seen); Hyaline Casts/LPF 4-6 HYALINE CAST LPF (0-3 Hyaline); RBC/HPF 0-3 HPF (0-3); WBC/HPF 0-3 HPF (0-3)
[2018-08-02 15:31] LABS: Amphetamine Not Detected (NotDetected); Barbiturates Screen Not Detected (NotDetected); Benzodiazepine Screen Not Detected (NotDetected); Cocaine Metabolite Screen Not Detected (NotDetected); Medtox Control Line Valid? VALID (VALID); Medtox Reader # READER 1; Methadone Not Detected (NotDetected); Methamphetamine Not Detected (NotDetected); Opiate Screen Not Detected (NotDetected); Oxycodone Screen Not Detected (NotDetected); Phencyclidine (PCP) Not Detected (NotDetected); THC/Cannabinoid Screen Not Detected (NotDetected); Tricyclic Screen Not Detected (NotDetected)
[2018-08-02 15:34] LABS: Transitional Epithelial 0-3 HPF (0-3)
[2018-08-02] MEDS ORDERED: Aspirin 300 MG Suppository ONE (16:49)
[2018-08-02 17:22] LABS: Troponin I Less than 0.010 ng/mL (< 0.028)
[2018-08-02] MEDS ORDERED: Ondansetron PF 4 MG/2 ML Vial IVP PRN (19:56)
[2018-08-02] MEDS ORDERED: Bisacodyl 10 MG SUPP PR PRN (19:56)
[2018-08-02] MEDS ORDERED: Acetaminophen 650 MG Suppository PR PRN (19:56)
[2018-08-02] MEDS ORDERED: Labetalol HCl 100 MG/20 ML VIAL SLOW IVP PRN (19:57)
[2018-08-02] MEDS ORDERED: hydrALAZINE 20 MG/ML VIAL SLOW IVP PRN (19:57)
[2018-08-02] MEDS ORDERED: Enalaprilat Dihydrate 1.25 MG/ML VIAL SLOW IVP PRN (19:57)
[2018-08-02 20:13] LABS: Troponin I Less than 0.010 ng/mL (< 0.028)
[2018-08-02 20:57] LABS: FSP-Qualitative ABNORMAL (Normal); FSP-Semiquantitative >=5 & <20 mcg/mL (Less than 5)
[2018-08-02] MEDS ORDERED: Famotidine/PF 20 mg/2ml Vial SLOW IVP SCH (21:00)
[2018-08-02] MEDS ORDERED: Cefepime 1 GM in Sodium Chloride 0.9% 100 ML IVPB SCH (21:00)
[2018-08-02 21:11] LABS: Platelet Count 337 thou/uL (130-400)
[2018-08-02 21:14] LABS: Fibrinogen 692 mg/dL (253-463)
[2018-08-02 21:15] LABS: PTT 28.4 SEC (22.9-36.1)
[2018-08-02] MEDS ORDERED: Pharmacy to Dose VANCOMYCIN, CEFEPIME IVPB PRN (21:35)
[2018-08-02] MEDS ORDERED: Vancomycin HCl 1 GM in Premix Bag 1 BAG IVPB SCH (22:00)
[2018-08-02] MEDS: Sodium Chloride 0.9% 1,000 ML IV SCH (22:44)
[2018-08-02] MEDS: Atorvastatin Calcium 20 MG TAB PO SCH (22:56)
--- NOTE | 2018-08-02 23:53 | HP ---
REASON FOR ADMISSION: Acute encephalopathy, possible cerebrovascular accident with right-sided weakness. HISTORY OF PRESENT ILLNESS: Please note majority of this history is obtained by talking to patient's daughter and patient's at bedside. The patient is not oriented and is noncommunicative at present. Per daughter, the patient was confused on the phone from Wednesday. This morning, the found her mouth to be twisted. She also had right-sided weakness. The patient had some coughing spells, but no fever or expectoration. She normally mobilizes herself with a walker and has very limited mobility. The patient lives with her and essentially takes care of her for the most part. She has not been ambulating for the last 2 days now. The patient had not complained of any urinary urgency, frequency or burning sensation. No obvious fever at home as such. PAST MEDICAL AND SURGICAL HISTORY: History of coronary artery disease with prior CABG for 4-vessel disease, dyslipidemia, dementia, left hip repair, left leg stent for peripheral vascular disease, likely chronic obstructive pulmonary disease. CURRENT MEDICATIONS: Vitamin D3 2000 units p.o. daily, atorvastatin 20 mg p.o. at bedtime, donepezil 5 mg p.o. twice daily, aspirin 81 mg p.o. daily. ALLERGIES: No known drug allergies. PERSONAL HISTORY: Quit smoking 10 years ago, does not abuse alcohol or drugs. FAMILY HISTORY: Mother at the age of 74 years. Father in his 80s, both of old age/natural causes. Power of contract attorney is patient's daughter, Ms. Lionel Barton and . CODE STATUS: DNR. This was confirmed with, Ms. Lionel Petersen, daughter and POA along with who is also the POA at bedside. REVIEW OF SYSTEMS: Cannot be obtained as patient is not oriented. PHYSICAL EXAMINATION: GENERAL: The patient is an 83-year-old female who is lethargic and nonverbal at present. She is not in any distress as such at present. VITAL SIGNS: Blood pressure 190/128, pulse 76 per minute, respiratory rate 18 per minute, temperature 98.8 degrees Fahrenheit, saturating 96% on room air. NECK: Supple, no elevated JVD. HEENT: Eyes: Extraocular muscles intact. Pupils reacting to light. Oral cavity mucous membranes are dry. No exudates or congestion. CARDIOVASCULAR: S1, S2 heard. RESPIRATORY: Scattered wheezes plus, rhonchi plus. ABDOMEN: Soft, bowel sounds heard. No tenderness, rigidity or guarding. EXTREMITIES: No peripheral edema or calf tenderness. VASCULAR SYSTEM: Peripheral pulses 1+ bilateral, no ischemic ulcerations or gangrene. CENTRAL NERVOUS SYSTEM: No gross focal signs seen. The patient is very lethargic and nonverbal at present. A full neurologic exam is difficult. The patient awakens to touch, but does not communicate. She is seen moving her upper extremities and barely the lower extremities. PSYCHIATRIC: Cannot be assessed due to patient's severe lethargy at present. LABORATORY AND X-RAY FINDINGS: White count of 7, H&H 11 and 36, platelet count 327 with 80% neutrophils, MCV is 86. Electrolytes are stable. Serum bicarbonate 21, BUN 21, creatinine 1.0. Serum glucose 120. Liver enzymes are within normal limits. CK level is 192. Troponin x2 negative. Albumin is 3.8. UA shows trace blood, trace leukocyte esterase, 0-3 wbc's. Urine drug screen is negative. Chest x-ray done shows no acute cardiopulmonary abnormalities. CT brain shows atrophy with chronic white matter ischemic changes without mass or bleed. EKG done shows normal sinus rhythm at 73 beats per minute. CLINICAL IMPRESSION AND PLAN: The patient will be admitted to stroke unit for possible cerebrovascular accident with right-sided weakness. A complete neurologic exam is difficult due to patient's severe lethargy with her barely waking up and no focal signs seen. Also, patient has acute encephalopathy with possible sepsis. Sanches cultures will be obtained including blood, urine, and sputum. She also has chronic obstructive pulmonary disease exacerbation with prior history of smoking. She is currently wheezing with rattling in her throat. She will be on cefepime, Levaquin, and vancomycin. She will also be on Solu-Medrol 40 mg IV q.6 hourly along with DuoNebs. As patient is on aspirin at home, she will be switched over to Plavix. The patient has uncontrolled hypertension at present and is unclear if it is due to anxiety here , but she is very lethargic, nevertheless. She will be on IV p.r.n. medications along with nitro paste for blood pressure. Speech, PT, OT evaluations and Neurology consultation in the morning will be obtained. Echo with 2D Doppler for LV function and MRI brain to rule out CVA. A cortisol level along with lactic acid for sepsis will be obtained. She will be kept n.p.o. until speech clears her. The patient is at high risk for aspiration at present. She will be gently hydrated with normal saline at 70 mL per hour for now. Her overall prognosis is guarded given the age of 83 years with underlying dementia and current encephalopathy with multiple issues. [facility]
[2018-08-03] MEDS: Nitroglycerin 2% Ointment 1 INCH/1 GM Packet TOP SCH ×4 (00:09→21:27)
[2018-08-03] MEDS: cloNIDine 0.2mg/24 Hour PATCH TD SCH (08:52)
[2018-08-03] MEDS ORDERED: Enoxaparin Sodium 30 MG/0.3 ML SYRINGE SC SCH (09:00)
--- NOTE | 2018-08-03 11:15 | CON ---
DATE OF CONSULTATION: 08/03/2018 CONSULTING PHYSICIAN: Hospitalist Service. IMPRESSION: 1. Lacunar infarction with right facial droop and right upper extremity weakness. 2. Vascular dementia. 3. Deep venous thrombosis. PLAN: 1. Continue aspirin and Plavix. 2. Vena cava filter. 3. FPC placement. HISTORY: Ms. Yuen is an 83-year-old black female with a past history of progressive dementia. She has become progressively more immobile and is spending most of her time sitting. She would only wal k very short distances around the house. She came in with acute onset of right-sided weakness. A CT scan of the brain showed extensive small vessel ischemic changes, but no evidence of a hemorrhage. She was noted to have some lower extremity swelling and had a venogram done this morning showed evide nce of a deep venous thrombosis. She reportedly has significantly impaired from a cognitive perspect zachary. She has some difficulty recognizing family. She is not able to do for herself otherwise. PAST MEDICAL HISTORY: Hypertension, coronary artery disease. ALLERGIES: None. SOCIAL HISTORY: No tobacco or alcohol use. She is and was living at home. FAMILY HISTORY: Noncontributory. REVIEW OF SYSTEMS: Not obtainable. PHYSICAL EXAMINATION: VITAL SIGNS: Blood pressure 194/110, pulse 106, respirations 18, temperature 98.5. HEENT: Pupils are equal. Conjunctivae clear. Oropharynx clear. NECK: No lymphadenopathy. EXTREMITIES: No cyanosis. NEUROLOGIC: She had some mumbling speech and would not follow any commands in an appropriate fashion . She had an obvious right facial droop. The right upper extremity was relatively flaccid. I could not get any spontaneous movement out of it. She had normal tone on the left. Plantar responses wer e equivocal. Gait was not testable. No abnormal movements were seen. Sensation is grossly intact. LABORATORY STUDIES: Unremarkable CBC, coags and urinalysis. The chemistry panel showed glucose of 1 20, otherwise unremarkable. SUMMARY: This is an elderly lady with severe dementia and secondary stroke resulting in right-sided weakness. Family has elected to proceed with a vena cava filter. I agree with your antiplatelet neli atment. She is already on a statin. I do not think any further workup is needed. FPC plac ement would be appropriate. She has a pending swallow study to determine whether the feeding tube is necessary.
[2018-08-03] MEDS: Clopidogrel Bisulfate 75 MG TAB PO SCH (11:25)
[2018-08-03] MEDS: Sodium Chloride 0.9% 1,000 ML IV SCH ×2 (11:27→21:26)
--- NOTE | 2018-08-03 11:28 | ULT ---
VENOUS DUPLEX SONOGRAM BILATERAL LOWER EXTREMITIES: HISTORY: Bilateral leg pain and edema. FINDINGS: Good color and spectral Doppler flow within each common femoral vein and greater saphenous junction. There is incomplete compressibility and lack of flow within each femoral and deep femoral, popliteal , and posterior tibial vein. IMPRESSION: Extensive deep venous thrombosis throughout each lower extremity. Findings were called to Nimisha and Dr. Wells at the time of the exam. CODE CR POS: [facility]
--- NOTE | 2018-08-03 11:52 | PDOC.PN ---
- Subjective Encounter Start Date: 08/03/18 Encounter Start Time: 10:15 Subjective: is awake, not oriented -: family at bedside -: still coughing - Objective Resuscitation Status: Resuscitation Status DNR:Do Not Resuscitate MAR Reviewed: Yes Vital Signs & Weight: Vital Signs (12 hours) Temp Pulse Resp BP Pulse Ox 08/03/18 08:00 98.5 F 106 H 18 194/110 H 94 L 08/03/18 06:51 68 16 96 08/03/18 04:00 98.6 F 85 19 185/92 H 98 08/03/18 00:10 65 20 96 08/03/18 00:00 96.3 F L 54 L 19 163/66 H 95 Weight Weight 119 lb Result Diagrams: 08/02/18 20:30 08/02/18 13:18 Additional Labs: Accuchecks 08/02/18 12:17 POC Glucose 115 H Phys Exam - Physical Examination HEENT: PERRLA, sclera anicteric Neck: no JVD, supple Respiratory: no wheezing rhonchi++ Cardiovascular: RRR, no significant murmur Gastrointestinal: soft, non-tender, positive bowel sounds Musculoskeletal: pulses present, edema present ?right hemiparesis, facial droop Dx/Plan (1) CVA (cerebral vascular accident) Code(s): I63.9 - CEREBRAL INFARCTION, UNSPECIFIED Status: Suspected Qualifiers: Precerebral and cerebral artery: unspecified cerebral artery (2) DVT (deep venous thrombosis) Code(s): I82.409 - ACUTE EMBOLISM AND THOMBOS UNSP DEEP VN UNSP LOWER EXTREMITY Status: Acute Qualifiers: DVT location: lower extremity Chronicity: acute Laterality: bilateral (3) COPD exacerbation Code(s): J44.1 - CHRONIC OBSTRUCTIVE PULMONARY DISEASE W (ACUTE) EXACERBATION Status: Acute (4) Dementia Code(s): F03.90 - UNSPECIFIED DEMENTIA WITHOUT BEHAVIORAL DISTURBANCE Status: Chronic Qualifiers: Dementia type: Alzheimer's disease Dementia behavioral disturbance: with behavioral disturbance (5) Sepsis Code(s): A41.9 - SEPSIS, UNSPECIFIED ORGANISM Status: Suspected Qualifiers: Sepsis type: sepsis due to unspecified organism Qualified Code(s): A41.9 - Sepsis, unspecified organism (6) Muscular deconditioning Code(s): R29.898 - OTH SYMPTOMS AND SIGNS INVOLVING THE MUSCULOSKELETAL SYSTEM Status: Chronic (7) Hypertension Code(s): I10 - ESSENTIAL (PRIMARY) HYPERTENSION Status: Chronic Comment: uncontrolled - Plan will add oral meds when she is more safe to swallow -: start lovenox q12h for now -: is on levaquin, await cultures, gentle iv hydration -: nebs, steroids, pulm toilet, asp precautions -: PT to mobilize as tolerated, is not oriented at present * . continue plavix, lipitor, iv htn prn meds along with clonidine and nitropaste patches. 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 when she is breathing better for anesthesia if family wants, I have d/w complications of it with family peg tube if she needs it on wednesday (family yet to decide on it) Has fairly adv dementia and is DNR Review of Systems - Medications/Allergies Allergies/Adverse Reactions: Allergies Allergy/AdvReac Type Severity Reaction Status Date / Time No Known Drug Allergies Allergy Verified 08/03/18 04:42 Medications: Current Medications Acetaminophen (Tylenol) 650 mg PO Q4H PRN PRN Reason: Headache/Fever/Mild Pain (1-3) Acetaminophen (Tylenol) 650 mg DC Q4H PRN PRN Reason: Headache/Fever/Mild Pain (1-3) Albuterol/Ipratropium (Duoneb) 3 ml NEB [id number] [facility] Last Admin: 08/03/18 06:51 Dose: 3 ml Atorvastatin Calcium (Lipitor) 20 mg PO HS [facility] Last Admin: 08/02/18 22:56 Dose: Not Given Bisacodyl (Dulcolax) 10 mg DC DAILYPRN PRN PRN Reason: Constipation Clonidine (Aikllsmt-Vun-5) 0.2 mg TD Q7DAYS [facility] Last Admin: 08/03/18 08:52 Dose: 0.2 mg Clopidogrel Bisulfate (Plavix) 75 mg PO DAILY [facility] Last Admin: 08/03/18 11:25 Dose: 75 mg Enalaprilat (Vasotec) 1.25 mg SLOW IVP Q6H PRN PRN Reason: BP > 220/110 Enoxaparin Sodium (Lovenox) 50 mg SC Q12H [facility] Famotidine (Pepcid) 20 mg SLOW IVP QPM [facility] Guaifenesin/Dextromethorphan (Robitussin Dm) 15 ml PO Q4H PRN PRN Reason: Cough Hydralazine HCl (Apresoline) 10 mg SLOW IVP Q4H PRN PRN Reason: BP > 220/110 Sodium Chloride (Normal Saline 0.9%) 1,000 mls @ 70 mls/hr IV .[id number] [facility] Stop: 08/04/18 14:51 Last Admin: 08/03/18 11:27 Dose: Not Given Levofloxacin 500 mg/ Device 100 mls @ 100 mls/hr IVPB Q24HR [facility] Last Admin: 08/03/18 01:38 Dose: 100 mls Labetalol HCl (Normodyne) 20 mg SLOW IVP Q1H PRN PRN Reason: BP > 220/110 Methylprednisolone Sodium Succinate (Solu-Medrol) 20 mg IVP Q8HR [facility] Miscellaneous Medication (Pharmacy To Dose) 1 each IVPB PRN PRN PRN Reason: Pharmacy to dose Nitroglycerin (Nitro-Bid 2% Ointment) 0.5 inch TOP Q8HR [facility] Last Admin: 08/03/18 05:37 Dose: 0.5 inch Ondansetron HCl (Zofran) 4 mg IVP Q6H PRN PRN Reason: Nausea/Vomiting Pneumococcal 13-Valent Conj Vacc (Prevnar) 0.5 ml IM .ONCE ONE Stop: 08/04/18 09:01 Sodium Chloride (Flush - Normal Saline) 10 ml IVF PRN PRN PRN Reason: Saline Flush Sodium Chloride (Flush - Normal Saline) 10 ml IVF Q12HR [facility] Last Admin: 08/03/18 08:53 Dose: 10 ml
[2018-08-03 12:13] LABS: #Lymphocytes 0.3 thou/uL (1.20-3.40); #Monocytes 0.2 thou/uL (0.11-0.59); #Neutrophils 10.1 thou/uL (1.40-6.50); %Basophils 0.4 % (0.0-1.0); %Eosinophils 0.2 % (0.0-10.0); %Lymphocytes 2.9 % (21.0-51.0); %Monocytes 1.6 % (0.0-10.0); %Neutrophils 94.9 % (42.0-75.0); Mean Corpuscular HGB CONC 30.6 g/dL (32.0-36.0); Mean Corpuscular Hemoglobin 26.4 pg (27.0-31.0); Mean Corpuscular Volume 86.3 fL (78.0-98.0); Mean Platelet Volume 8.4 fL (7.4-10.4); Platelet Count 329 thou/uL (130-400); RBC Distribution Width 14.3 % (11.5-14.5); Red Blood Cell (RBC) Count 4.53 mill/uL (4.20-5.40); White Blood Cell (WBC) Count 10.6 thou/uL (4.8-10.8)
[2018-08-03 12:33] LABS: ALT (SGPT) 10 U/L (8-55); AST (SGOT) 16 U/L (5-34); Albumin 3.8 g/dL (3.4-4.8); Alkaline Phosphatase 64 U/L (40-150); Anion Gap 20 mmol/L (10-20); BUN (Urea Nitrogen) 21 mg/dL (9.8-20.1); Bilirubin, Total 0.5 mg/dL (0.2-1.2); Calc. Creatinine Clearance 30 mL/min (70-130); Calcium 9.8 mg/dL (7.8-10.44); Carbon Dioxide 16 mmol/L (23-31); Cardiac Risk 3.3 (Less than 4.5); Chloride 105 mmol/L (98-107); Cholesterol 193 mg/dl (< 200 Desired); Estimated GFR-MDRD 52; Globulin 4.3 g/dL (2.4-3.5); Glucose 203 mg/dL (83-110); HDL Cholesterol 58 mg/dL (>60 Neg Risk); LDL Cholesterol, Calculated 124 mg/dL; Potassium 4.2 mmol/L (3.5-5.1); Protein, Total 8.1 g/dL (6.0-8.3); Sodium 137 mmol/L (136-145); Triglycerides 55 mg/dL (Less than 150)
--- NOTE | 2018-08-03 14:38 | MRI ---
NONCONTRAST BRAIN MRI: INDICATION: Right-sided weakness. COMPARISON: Reference is made to preceding head CT, previous day. FINDINGS: There is an acute left paramedian pontine infarction. Moderate global atrophy with compensatory dila tation of the ventricular system is present. There is severe chronic ischemic disease. No intracran ial hemorrhage of acuity is evident. Remote lacunar infarction of the right cerebellar hemisphere as well as within the left subinsula present. Skull base flow voids are distorted by patient motion. Lime intraarticular lenses are absent. There is mild mucosal thickening in the paranasal sinuses. IMPRESSION: 1. Small acute left paramedian pontine infarction. 2. Severe chronic ischemic disease and superimposed remote cavitary lacunar infarction. 3. Moderate global atrophy with associated ventriculomegaly. POS: [facility]
[2018-08-03] MEDS: Acetaminophen 325 MG TAB PO PRN (14:47)
[2018-08-03] MEDS ORDERED: Cefepime 1 GM in Sodium Chloride 0.9% 100 ML IVPB SCH (21:00)
[2018-08-03] MEDS: Enoxaparin Sodium 60 MG/0.6 ML SYRINGE SC SCH (21:26)
[2018-08-03] MEDS: Atorvastatin Calcium 20 MG TAB PO SCH (21:47)
[2018-08-03] MEDS: Famotidine/PF 20 mg/2ml Vial SLOW IVP SCH (21:47)
[2018-08-03] MEDS ORDERED: Vancomycin HCl 750 MG in Sodium Chloride 0.9% 250 ML 250 ML IVPB SCH (23:59)
[2018-08-04] MEDS: Nitroglycerin 2% Ointment 1 INCH/1 GM Packet TOP SCH ×3 (05:26→21:17)
[2018-08-04] MEDS ORDERED: Prevnar 13-Val Conj/PF 0.5 ML SYRINGE IM ONE (09:00)
[2018-08-04] MEDS: Enoxaparin Sodium 60 MG/0.6 ML SYRINGE SC SCH ×2 (09:46→21:16)
[2018-08-04] MEDS: Clopidogrel Bisulfate 75 MG TAB PO SCH (09:46)
[2018-08-04] MEDS ORDERED: Ziprasidone 20 MG VIAL IM PRN (16:27)
--- NOTE | 2018-08-04 16:29 | PDOC.PN ---
- Subjective Encounter Start Date: 08/04/18 Encounter Start Time: 16:27 Subjective: pt w severe dementia & care discussed w son and at bedside -: son worried about her being harm to herself w taking off monitor leads/IVs -: Both do not want blood thinners but Ok w IVC filter - Objective Resuscitation Status DNR:Do Not Resuscitate MAR Reviewed: Yes Vital Signs & Weight: Vital Signs (12 hours) Temp Pulse Pulse Pulse Resp BP BP 08/04/18 16:00 98.4 F 74 18 08/04/18 13:25 70 20 08/04/18 12:00 97.6 F 79 18 08/04/18 10:26 81 08/04/18 09:51 89 79 198/95 H 174/98 H 08/04/18 09:47 80 08/04/18 08:00 99.1 F 71 16 BP Pulse Ox 08/04/18 16:00 202/89 H 98 08/04/18 13:25 08/04/18 12:00 204/104 H 96 08/04/18 10:26 185/91 H 08/04/18 09:51 08/04/18 09:47 184/91 H 08/04/18 08:00 201/98 H 98 Weight Admit Weight 119 lb Weight 119 lb I&O: 08/03/18 08/04/18 08/05/18 06:59 06:59 06:59 Intake Total 600 Balance 600 Result Diagrams: 08/03/18 11:59 08/03/18 11:59 Additional Labs: Microbiology 08/02/18 20:30 Venous blood - Left Arm Blood Culture - Preliminary Specimen has been received and culture in progress. No Growth to date. 08/02/18 14:04 Urine Straight Catheter Urine Culture - Preliminary NO GROWTH AT 12 HOURS 08/02/18 13:25 Artery - Left Leg Blood Culture - Preliminary Specimen has been received and culture in progress. No Growth to date. Phys Exam - Physical Examination Constitutional: NAD awake but crawford snot follow any commmands.mumbles HEENT: PERRLA, moist MMs, sclera anicteric, oral pharynx no lesions Neck: no nodes, no JVD, supple, full ROM Respiratory: no wheezing, no rales, no rhonchi, clear to auscultation bilateral Cardiovascular: RRR, no significant murmur Gastrointestinal: soft, non-tender, no distention, positive bowel sounds Musculoskeletal: no edema, pulses present Neurological: non-focal, normal sensation, moves all 4 limbs Psychiatric: normal affect, A&O x 3 Skin: no rash Dx/Plan (1) CVA (cerebral vascular accident) Code(s): I63.9 - CEREBRAL INFARCTION, UNSPECIFIED Status: Suspected Qualifiers: Precerebral and cerebral artery: unspecified cerebral artery Comment: Left pontine CVA (2) DVT (deep venous thrombosis) Code(s): I82.409 - ACUTE EMBOLISM AND THOMBOS UNSP DEEP VN UNSP LOWER EXTREMITY Status: Acute Qualifiers: DVT location: lower extremity Chronicity: acute Laterality: bilateral Comment: on BID Lovenox (3) Uncontrolled hypertension Code(s): I10 - ESSENTIAL (PRIMARY) HYPERTENSION Status: Acute (4) Dementia Code(s): F03.90 - UNSPECIFIED DEMENTIA WITHOUT BEHAVIORAL DISTURBANCE Status: Chronic Qualifiers: Dementia type: Alzheimer's disease Dementia behavioral disturbance: with behavioral disturbance (5) Sepsis Code(s): A41.9 - SEPSIS, UNSPECIFIED ORGANISM Status: Suspected Qualifiers: Sepsis type: sepsis due to unspecified organism Qualified Code(s): A41.9 - Sepsis, unspecified organism (6) Coronary arteriosclerosis Status: Chronic (7) Hypertension Code(s): I10 - ESSENTIAL (PRIMARY) HYPERTENSION Status: Chronic Comment: uncontrolled (8) Acute metabolic encephalopathy Code(s): G93.41 - METABOLIC ENCEPHALOPATHY Status: Resolved - Plan plan discussed w/ family, PT/OT, out of bed/ambulate, DVT proph w/SCDs consult [facility] for IVC filter.hold plavix for now. -: not a candidate for OAC d/t fall risk & advanced dementia -: cont ASA,statin. -: cont lovenox BID for now.hold prior to Sx as per [facility]. -: cont diet per [employer] recs .discussed w [employer]. * .will arrange sitter as requested by family. * add prn geodon but avoid retirement use.avoid all sedatives/narcotics * BP still uncontrolled.add BB.cont clonidine patch * reduce steroids. * supportive care * DNR * rehab accpeted.DC after IVC filter placement if stable Review of Systems - Review of Systems Other: can not be obtained due to severe dementia - Medications/Allergies Allergies/Adverse Reactions: Allergies Allergy/AdvReac Type Severity Reaction Status Date / Time No Known Drug Allergies Allergy Verified 08/03/18 04:42 Medications: Current Medications Acetaminophen (Tylenol) 650 mg PO Q4H PRN PRN Reason: Headache/Fever/Mild Pain (1-3) Last Admin: 08/03/18 14:47 Dose: 650 mg Acetaminophen (Tylenol) 650 mg MT Q4H PRN PRN Reason: Headache/Fever/Mild Pain (1-3) Albuterol/Ipratropium (Duoneb) 3 ml NEB [id number] [facility] Last Admin: 08/04/18 13:25 Dose: 3 ml Atorvastatin Calcium (Lipitor) 20 mg PO HS [facility] Last Admin: 08/03/18 21:47 Dose: 20 mg Bisacodyl (Dulcolax) 10 mg MT DAILYPRN PRN PRN Reason: Constipation Clonidine ([id number]-1) 0.2 mg TD Q7DAYS [facility] Last Admin: 08/03/18 08:52 Dose: 0.2 mg Clopidogrel Bisulfate (Plavix) 75 mg PO DAILY [facility] Last Admin: 08/04/18 09:46 Dose: 75 mg Enalaprilat (Vasotec) 1.25 mg SLOW IVP Q6H PRN PRN Reason: BP > 220/110 Enoxaparin Sodium (Lovenox) 50 mg SC Q12HR [facility] Last Admin: 08/04/18 09:46 Dose: 50 mg Famotidine (Pepcid) 20 mg SLOW IVP QPM [facility] Last Admin: 08/03/18 21:47 Dose: 20 mg Guaifenesin/Dextromethorphan (Robitussin Dm) 15 ml PO Q4H PRN PRN Reason: Cough Hydralazine HCl (Apresoline) 10 mg SLOW IVP Q4H PRN PRN Reason: BP > 220/110 Levofloxacin 500 mg/ Device 100 mls @ 100 mls/hr IVPB Q24HR [facility] Last Admin: 08/03/18 22:25 Dose: 100 mls Labetalol HCl (Normodyne) 20 mg SLOW IVP Q1H PRN PRN Reason: BP > 220/110 Methylprednisolone Sodium Succinate (Solu-Medrol) 20 mg IVP Q8HR [facility] Last Admin: 08/04/18 14:38 Dose: 20 mg Nitroglycerin (Nitro-Bid 2% Ointment) 0.5 inch TOP Q8HR [facility] Last Admin: 08/04/18 14:38 Dose: 0.5 inch Ondansetron HCl (Zofran) 4 mg IVP Q6H PRN PRN Reason: Nausea/Vomiting Sodium Chloride (Flush - Normal Saline) 10 ml IVF PRN PRN PRN Reason: Saline Flush Sodium Chloride (Flush - Normal Saline) 10 ml IVF Q12HR [facility] Last Admin: 08/04/18 09:50 Dose: Not Given Ziprasidone (Geodon) 10 mg IM Q6H PRN PRN Reason: Agitation
[2018-08-04] MEDS: Atorvastatin Calcium 20 MG TAB PO SCH (21:15)
[2018-08-04] MEDS: Famotidine/PF 20 mg/2ml Vial SLOW IVP SCH (21:16)
[2018-08-05] MEDS ORDERED: hydrALAZINE 20 MG/ML VIAL SLOW IVP PRN (03:04)
[2018-08-05] MEDS: Nitroglycerin 2% Ointment 1 INCH/1 GM Packet TOP SCH ×3 (05:32→22:43)
[2018-08-05] MEDS: Amlodipine 10 MG TAB PO SCH (09:33)
[2018-08-05] MEDS: Enoxaparin Sodium 60 MG/0.6 ML SYRINGE SC SCH ×2 (09:34→20:23)
[2018-08-05] MEDS: Aspirin 81 mg Enteric Coated Tablet PO SCH (09:34)
--- NOTE | 2018-08-05 13:21 | PDOC.PN ---
- Subjective Encounter Start Date: 08/05/18 Encounter Start Time: 13:19 Subjective: care discussed w daughter and grand daughter at bedside -: No new events overnight.sitter at bedside -: pt remains confused w underline dementia - Objective Resuscitation Status: Resuscitation Status DNR:Do Not Resuscitate MAR Reviewed: Yes Vital Signs & Weight: Vital Signs (12 hours) Temp Pulse Resp BP BP Pulse Ox 08/05/18 12:00 99.1 F 82 16 155/79 H 100 08/05/18 11:54 88 20 08/05/18 09:33 79 186/94 H 08/05/18 07:55 85 20 98 08/05/18 07:20 98.6 F 79 20 186/94 H 99 08/05/18 03:37 70 215/100 H 08/05/18 03:22 98.6 F 70 16 215/100 H 100 Weight Admit Weight 119 lb Weight 119 lb I&O: 08/04/18 08/05/18 08/06/18 06:59 06:59 06:59 Intake Total 1010 300 Balance 1010 300 Result Diagrams: 08/03/18 11:59 08/03/18 11:59 Additional Labs: Microbiology 08/02/18 14:04 Urine Straight Catheter Urine Culture - Final NO GROWTH AT 36 HOURS 08/02/18 20:30 Venous blood - Left Arm Blood Culture - Preliminary NO GROWTH AT 48 HOURS 08/02/18 13:25 Artery - Left Leg Blood Culture - Preliminary Gram Negative Coccobacilli Laboratory Tests 08/03/18 11:59 Triglycerides 55 Cholesterol 193 LDL Cholesterol, Calc 124 HDL Cholesterol 58 Phys Exam - Physical Examination Constitutional: NAD awake but does not follow commands.less fidgety today.sleepy HEENT: PERRLA, moist MMs, sclera anicteric, oral pharynx no lesions Neck: no nodes, no JVD, supple, full ROM Respiratory: no wheezing, no rales, no rhonchi, clear to auscultation bilateral Cardiovascular: RRR, no significant murmur Gastrointestinal: soft, non-tender, no distention, positive bowel sounds Musculoskeletal: no edema, pulses present Neurological: non-focal, normal sensation, moves all 4 limbs Skin: no rash Dx/Plan (1) CVA (cerebral vascular accident) Code(s): I63.9 - CEREBRAL INFARCTION, UNSPECIFIED Status: Suspected Qualifiers: Precerebral and cerebral artery: unspecified cerebral artery Comment: Left pontine CVA (2) DVT (deep venous thrombosis) Code(s): I82.409 - ACUTE EMBOLISM AND THOMBOS UNSP DEEP VN UNSP LOWER EXTREMITY Status: Acute Qualifiers: DVT location: lower extremity Chronicity: acute Laterality: bilateral Comment: on BID Lovenox (3) Uncontrolled hypertension Code(s): I10 - ESSENTIAL (PRIMARY) HYPERTENSION Status: Acute (4) Dementia Code(s): F03.90 - UNSPECIFIED DEMENTIA WITHOUT BEHAVIORAL DISTURBANCE Status: Chronic Qualifiers: Dementia type: Alzheimer's disease Dementia behavioral disturbance: with behavioral disturbance (5) Sepsis Code(s): A41.9 - SEPSIS, UNSPECIFIED ORGANISM Status: Suspected Qualifiers: Sepsis type: sepsis due to unspecified organism Qualified Code(s): A41.9 - Sepsis, unspecified organism (6) Coronary arteriosclerosis Status: Chronic (7) Hypertension Code(s): I10 - ESSENTIAL (PRIMARY) HYPERTENSION Status: Chronic Comment: uncontrolled - Plan plan discussed w/ family, continue antibiotics, PT/OT, DVT proph w/SCDs Case discussed w [facility] IVC filter.Family wants to proceed -: cont lovenox BID for now. -: Plavix on hold in anticipation of vascular Sx. Add ASA. -: Diet w risk.discussed w family & they agree -: Rehab placement after IVC filter is done.pt not candidate for OAC * .Positive blood Cx for GNB.already on levaquin.wait final results * Review of Systems - Review of Systems Other: can not be obtained due to dementia - Medications/Allergies Allergies/Adverse Reactions: Allergies Allergy/AdvReac Type Severity Reaction Status Date / Time No Known Drug Allergies Allergy Verified 08/03/18 04:42 Medications: Current Medications Acetaminophen (Tylenol) 650 mg PO Q4H PRN PRN Reason: Headache/Fever/Mild Pain (1-3) Last Admin: 08/03/18 14:47 Dose: 650 mg Acetaminophen (Tylenol) 650 mg CO Q4H PRN PRN Reason: Headache/Fever/Mild Pain (1-3) Albuterol/Ipratropium (Duoneb) 3 ml NEB [id number] [facility] Last Admin: 08/05/18 11:54 Dose: 3 ml Amlodipine Besylate (Norvasc) 10 mg PO DAILY [facility] Last Admin: 08/05/18 09:33 Dose: 10 mg Aspirin (Ecotrin) 81 mg PO DAILY [facility] Last Admin: 08/05/18 09:34 Dose: 81 mg Atorvastatin Calcium (Lipitor) 20 mg PO HS [facility] Last Admin: 08/04/18 21:15 Dose: 20 mg Bisacodyl (Dulcolax) 10 mg CO DAILYPRN PRN PRN Reason: Constipation Clonidine ([id number]-[id number]-7) 0.2 mg TD Q7DAYS [facility] Last Admin: 08/03/18 08:52 Dose: 0.2 mg Clopidogrel Bisulfate (Plavix) 75 mg PO DAILY [facility] Last Admin: 08/04/18 09:46 Dose: 75 mg Enalaprilat (Vasotec) 1.25 mg SLOW IVP Q6H PRN PRN Reason: BP > 220/110 Enoxaparin Sodium (Lovenox) 50 mg SC Q12HR [facility] Last Admin: 08/05/18 09:34 Dose: 50 mg Famotidine (Pepcid) 20 mg SLOW IVP QPM [facility] Last Admin: 08/04/18 21:16 Dose: 20 mg Guaifenesin/Dextromethorphan (Robitussin Dm) 15 ml PO Q4H PRN PRN Reason: Cough Hydralazine HCl (Apresoline) 10 mg SLOW IVP Q4H PRN PRN Reason: BP > 220/110 Hydralazine HCl (Apresoline) 10 mg SLOW IVP Q4H PRN PRN Reason: FOR SBP > 180 Last Admin: 08/05/18 03:37 Dose: 10 mg Levofloxacin 500 mg/ Device 100 mls @ 100 mls/hr IVPB Q24HR [facility] Last Admin: 08/04/18 23:20 Dose: 100 mls Labetalol HCl (Normodyne) 20 mg SLOW IVP Q1H PRN PRN Reason: BP > 220/110 Methylprednisolone Sodium Succinate (Solu-Medrol) 20 mg IVP Q12HR [facility] Last Admin: 08/05/18 09:34 Dose: 20 mg Metoprolol Succinate (Toprol Xl) 25 mg PO DAILY [facility] Last Admin: 08/05/18 09:34 Dose: 25 mg Nitroglycerin (Nitro-Bid 2% Ointment) 0.5 inch TOP Q8HR [facility] Last Admin: 08/05/18 05:32 Dose: 0.5 inch Ondansetron HCl (Zofran) 4 mg IVP Q6H PRN PRN Reason: Nausea/Vomiting Sodium Chloride (Flush - Normal Saline) 10 ml IVF PRN PRN PRN Reason: Saline Flush Sodium Chloride (Flush - Normal Saline) 10 ml IVF Q12HR [facility] Last Admin: 08/05/18 09:35 Dose: 10 ml Ziprasidone (Geodon) 10 mg IM Q6H PRN PRN Reason: Agitation
--- NOTE | 2018-08-05 18:47 | CON ---
DATE OF CONSULTATION: 08/05/2018 REQUESTING PHYSICIAN: Dr. Johansen. CHIEF COMPLAINT: Altered mental status. HISTORY OF PRESENT ILLNESS: The patient is an 83-year-old woman who at baseline has dementia. She i s poorly mobile. Her elderly tries to take care of her, but according to the daughter, he re ally is not very good about getting her up and making her use her walker to ambulate, and much of the time, she simply stays in her recliner. She is no longer able to feed herself, bathe herself, or re adily go to the bathroom without help and wears a diaper. The patient's daughter noticed during tele phone conversation that her mother seemed to be more confused and more poorly communicative than norm al, and upon questioning, it turned out that she had been like that for a couple of days. Her husban d noticed that her mouth seemed distorted and that she was weak on one side compared to her baseline. She was brought to the hospital, where she was found by MRI to have had a small stroke in the left paramedian region of the funmilayo. However, she also had extensive chronic and old ischemic changes and some global atrophy. Empiric blood cultures were done at presentation looking for sepsis as an under lying cause of some of her mental status changes and one of those blood cultures just turned positive this morning. One of her examiners appreciated some discomfort and swelling in her lower extremitie s, and obtained a deep venous Doppler of her legs that showed widely patent and compressible common f emoral veins, but extensive thrombus involving the deep and superficial femoral veins, the popliteals , and extending down into the tibials. PAST MEDICAL HISTORY: Significant for coronary artery disease and has previously undergone coronary artery bypass grafting; and peripheral vascular disease. HOME MEDICATIONS: Atorvastatin, benazepril, baby aspirin, and vitamin D3. SOCIAL HISTORY: The patient quit smoking about 10 years ago. FAMILY HISTORY: Significant for her parents living into their 70s and 80s, cause of is unknown . REVIEW OF SYSTEMS: Significant for her debility and dementia. PHYSICAL EXAMINATION: GENERAL: She is a poorly communicative elderly woman, appears chronically ill. VITAL SIGNS: Heart rate is 85, blood pressure 186/94, temperature 98.6, room air O2 sats are 99%. LUNGS: She has clear breath sounds. CARDIOVASCULAR: Regular rate and rhythm. ABDOMEN: Soft and nontender. EXTREMITIES: She has no apparent edema in her lower extremities, although her right calf is mildly t jasmin. Her Doppler shows bilateral DVTs as described above. LABORATORY DATA: Hemoglobin of 12, white count of 10.6, BUN of 21, creatinine of 1.2. Blood culture from 2-1/2 days ago now growing a gram-negative coccobacillus out of 1-2 bottles. A set of cultures drawn about 6-7 hours later has no growth so far. Urine culture is negative at 36 hours. Her brain MRI is as described above. Her chest x-ray shows sternotomy wires and vascular clips. No obvious i nfiltrates. IMPRESSION AND RECOMMENDATIONS: The patient has not been documented to have had pulmonary emboli. S he has relative contraindications to anticoagulation that I think are very reasonable contraindicatio ns. This may be stretching the indications for filter placement, but I do not think in and of itself is an unreasonable approach if anticoagulation is not going to be pursued; however, there are some m oral and ethical issues raised here because of the patient's advanced age, dementia, her overall poor health, and poor prognosis aside from this issue. I have had a long discussion with the patient's d jackieer and her [id number], and they are going to talk with the patient's , the daughter's stepfather, about some of the implications. If they wish me to proceed with filter placement when we know more about her septic situation and it has been brought under control, I am willing to do filte r placement. If they wish to not pursue that, I think that is a reasonable approach as well.
[2018-08-05] MEDS: Atorvastatin Calcium 20 MG TAB PO SCH (20:23)
[2018-08-05] MEDS: Famotidine/PF 20 mg/2ml Vial SLOW IVP SCH (20:24)
--- NOTE | 2018-08-05 21:49 | CT ---
NONCONTRAST HEAD CT: HISTORY: Stroke alert. NIH went from 14 to 17. Left pontine infarct. COMPARISON: 08/02/2017 CORRELATION: Brain MRI from 08/03/2018. FINDINGS: No parenchymal hemorrhage. No extraaxial hematoma. No midline shift. Basilar cisterns are patent. Age appropriate atrophy. Cortical alexander white matter differentiation is preserved. Stable configura tion of the ventricular system. Stable white matter hypodensities. Hypoattenuation at the left aspect of the funmilayo, compatible with left pontine infarct, demonstrated on recent MRI. Stable aeration of the sinuses and mastoid air cells. Atherosclerosis of the cavernous carotid arter ies is noted. The calvarium is intact. IMPRESSION: Evolving left pontine infarct. POS: [facility]
[2018-08-06] MEDS: Nitroglycerin 2% Ointment 1 INCH/1 GM Packet TOP SCH ×3 (05:04→22:56)
[2018-08-06] MEDS: Amlodipine 10 MG TAB PO SCH (08:30)
[2018-08-06] MEDS: Enoxaparin Sodium 60 MG/0.6 ML SYRINGE SC SCH ×2 (08:31→21:27)
[2018-08-06] MEDS: Aspirin 81 mg Enteric Coated Tablet PO SCH (09:57)
[2018-08-06] MEDS ORDERED: Metoprolol Tartrate 25 MG TAB PO SCH (11:00)
--- NOTE | 2018-08-06 13:46 | PDOC.PN ---
- Subjective Encounter Start Date: 08/06/18 Encounter Start Time: 13:44 Subjective: no ON events. remains pleasently confused -: family said that they want to think about IVC filter - Objective Resuscitation Status DNR:Do Not Resuscitate MAR Reviewed: Yes Vital Signs & Weight: Vital Signs (12 hours) Temp Pulse Resp BP BP Pulse Ox 08/06/18 08:30 80 153/72 H 08/06/18 07:54 98.6 F 80 20 153/72 H 97 08/06/18 06:35 78 20 99 08/06/18 04:03 98.6 F 77 16 151/72 H 98 Weight Admit Weight 119 lb Weight 119 lb I&O: 08/05/18 08/06/18 08/07/18 06:59 06:59 06:59 Intake Total 1010 600 Balance 1010 600 Result Diagrams: 08/03/18 11:59 08/03/18 11:59 Additional Labs: Accuchecks 08/05/18 20:20 POC Glucose 163 H Microbiology 08/02/18 14:04 Urine Straight Catheter Urine Culture - Final NO GROWTH AT 36 HOURS 08/02/18 20:30 Venous blood - Left Arm Blood Culture - Preliminary NO GROWTH AT 48 HOURS 08/02/18 13:25 Artery - Left Leg Blood Culture - Preliminary Pseudomonas species Phys Exam - Physical Examination Constitutional: NAD does not follow commands.Curses a lot HEENT: PERRLA, moist MMs, sclera anicteric, oral pharynx no lesions Neck: no nodes, no JVD, supple, full ROM Respiratory: no wheezing, no rales, no rhonchi, clear to auscultation bilateral Cardiovascular: RRR, no significant murmur, no rub, gallop Gastrointestinal: soft, non-tender, no distention, positive bowel sounds Musculoskeletal: no edema, pulses present Neurological: moves all 4 limbs Psychiatric: normal affect Dx/Plan (1) Pseudomonal bacteremia Code(s): R78.81 - BACTEREMIA Status: Acute Comment: on Levaquin (2) CVA (cerebral vascular accident) Code(s): I63.9 - CEREBRAL INFARCTION, UNSPECIFIED Status: Suspected Qualifiers: Precerebral and cerebral artery: unspecified cerebral artery Comment: Left pontine CVA (3) DVT (deep venous thrombosis) Code(s): I82.409 - ACUTE EMBOLISM AND THOMBOS UNSP DEEP VN UNSP LOWER EXTREMITY Status: Acute Qualifiers: DVT location: lower extremity Chronicity: acute Laterality: bilateral Comment: on BID Lovenox (4) Uncontrolled hypertension Code(s): I10 - ESSENTIAL (PRIMARY) HYPERTENSION Status: Acute (5) Dementia Code(s): F03.90 - UNSPECIFIED DEMENTIA WITHOUT BEHAVIORAL DISTURBANCE Status: Chronic Qualifiers: Dementia type: Alzheimer's disease Dementia behavioral disturbance: with behavioral disturbance (6) Sepsis Code(s): A41.9 - SEPSIS, UNSPECIFIED ORGANISM Status: Suspected Qualifiers: Sepsis type: sepsis due to unspecified organism Qualified Code(s): A41.9 - Sepsis, unspecified organism (7) Coronary arteriosclerosis Status: Chronic (8) Hypertension Code(s): I10 - ESSENTIAL (PRIMARY) HYPERTENSION Status: Chronic Comment: uncontrolled (9) Acute metabolic encephalopathy Code(s): G93.41 - METABOLIC ENCEPHALOPATHY Status: Resolved - Plan DVT proph w/SCDs cont lovenox -: plavix on hold for possible IVC filter placement -: rehab when decison about filter made -: cont levaquin for pseudomonas in 1/2 blood cx sets.sensitive to levaquin -: cont ASA,statin * .HD stable Review of Systems - Review of Systems Other: can not be obtained due to Dementia - Medications/Allergies Allergies/Adverse Reactions: Allergies Allergy/AdvReac Type Severity Reaction Status Date / Time No Known Drug Allergies Allergy Verified 08/03/18 04:42 Medications: Current Medications Acetaminophen (Tylenol) 650 mg PO Q4H PRN PRN Reason: Headache/Fever/Mild Pain (1-3) Last Admin: 08/03/18 14:47 Dose: 650 mg Acetaminophen (Tylenol) 650 mg [place] Q4H PRN PRN Reason: Headache/Fever/Mild Pain (1-3) Albuterol/Ipratropium (Duoneb) 3 ml NEB [id number] [facility] Last Admin: 08/06/18 12:40 Dose: Not Given Amlodipine Besylate (Norvasc) 10 mg PO DAILY [facility] Last Admin: 08/06/18 08:30 Dose: 10 mg Aspirin (Aspirin Chewable) 81 mg PO DAILY [facility] Last Admin: 08/06/18 09:54 Dose: 81 mg Atorvastatin Calcium (Lipitor) 20 mg PO HS [facility] Last Admin: 08/05/18 20:23 Dose: 20 mg Bisacodyl (Dulcolax) 10 mg MN DAILYPRN PRN PRN Reason: Constipation Clonidine (Rliqxifq-Ufs-2) 0.2 mg TD Q7DAYS [facility] Last Admin: 08/03/18 08:52 Dose: 0.2 mg Clopidogrel Bisulfate (Plavix) 75 mg PO DAILY [facility] Last Admin: 08/04/18 09:46 Dose: 75 mg Enalaprilat (Vasotec) 1.25 mg SLOW IVP Q6H PRN PRN Reason: BP > 220/110 Enoxaparin Sodium (Lovenox) 50 mg SC Q12HR [facility] Last Admin: 08/06/18 08:31 Dose: 50 mg Famotidine (Pepcid) 20 mg SLOW IVP QPM [facility] Last Admin: 08/05/18 20:24 Dose: 20 mg Guaifenesin/Dextromethorphan (Robitussin Dm) 15 ml PO Q4H PRN PRN Reason: Cough Hydralazine HCl (Apresoline) 10 mg SLOW IVP Q4H PRN PRN Reason: BP > 220/110 Hydralazine HCl (Apresoline) 10 mg SLOW IVP Q4H PRN PRN Reason: FOR SBP > 180 Last Admin: 08/05/18 03:37 Dose: 10 mg Levofloxacin 500 mg/ Device 100 mls @ 100 mls/hr IVPB Q24HR [facility] Last Admin: 08/05/18 22:42 Dose: 100 mls Labetalol HCl (Normodyne) 20 mg SLOW IVP Q1H PRN PRN Reason: BP > 220/110 Methylprednisolone Sodium Succinate (Solu-Medrol) 20 mg IVP Q12HR [facility] Last Admin: 08/06/18 08:31 Dose: 20 mg Metoprolol Tartrate (Lopressor) 25 mg PO BID [facility] Nitroglycerin (Nitro-Bid 2% Ointment) 0.5 inch TOP Q8HR [facility] Last Admin: 08/06/18 05:04 Dose: 0.5 inch Ondansetron HCl (Zofran) 4 mg IVP Q6H PRN PRN Reason: Nausea/Vomiting Sodium Chloride (Flush - Normal Saline) 10 ml IVF PRN PRN PRN Reason: Saline Flush Sodium Chloride (Flush - Normal Saline) 10 ml IVF Q12HR [facility] Last Admin: 08/06/18 11:20 Dose: 10 ml Ziprasidone (Geodon) 10 mg IM Q6H PRN PRN Reason: Agitation
[2018-08-06] MEDS: Metoprolol Tartrate 25 MG TAB PO SCH (21:27)
[2018-08-06] MEDS: Famotidine/PF 20 mg/2ml Vial SLOW IVP SCH (21:27)
[2018-08-06] MEDS: Atorvastatin Calcium 20 MG TAB PO SCH (21:27)
[2018-08-07] MEDS: Nitroglycerin 2% Ointment 1 INCH/1 GM Packet TOP SCH ×3 (05:17→20:51)
[2018-08-07] MEDS: Enoxaparin Sodium 60 MG/0.6 ML SYRINGE SC SCH ×2 (09:50→20:51)
[2018-08-07] MEDS: Amlodipine 10 MG TAB PO SCH (09:54)
[2018-08-07] MEDS: Metoprolol Tartrate 25 MG TAB PO SCH ×2 (09:55→20:52)
[2018-08-07] MEDS: Acetaminophen 325 MG TAB PO PRN (09:55)
--- NOTE | 2018-08-07 10:43 | ULT ---
ULTRASOUND VENOUS RIGHT UPPER EXTREMITY: HISTORY: Altered mental status. Right upper arm edema. TECHNIQUE: Real-time, alexander scale, color Doppler, and spectral analysis of the right upper extremity venous syste m is performed. FINDINGS: The right basilic cephalic veins are unable to be visualized due to edema. Bandage overlies the righ t internal jugular vein and was unable to be interrogated. The axillary, subclavian, proximal, basil ic, radial, and ulnar veins have normal flow and compression. There is extensive upper extremity herve ma. IMPRESSION: 1. Within the limits of this exam, no upper extremity deep venous thrombosis. 2. Extensive soft tissue edema. POS: [facility]
--- NOTE | 2018-08-07 11:59 | PDOC.PN ---
- Subjective Encounter Start Date: 08/07/18 Encounter Start Time: 11:57 Subjective: no changes.care discussed w at bedside -: he deferred the IVC filter decision to daughter - Objective Resuscitation Status: Resuscitation Status DNR:Do Not Resuscitate MAR Reviewed: Yes Vital Signs & Weight: Vital Signs (12 hours) Temp Pulse Resp BP BP Pulse Ox 08/07/18 11:38 97.6 F 64 20 144/79 H 96 08/07/18 09:54 101 H 155/90 H 08/07/18 08:43 70 20 100 08/07/18 08:20 97 08/07/18 08:00 97.9 F 101 H 20 155/90 H 97 Weight Admit Weight 119 lb Weight 119 lb I&O: 08/06/18 08/07/18 08/08/18 06:59 06:59 06:59 Intake Total 600 400 Balance 600 400 Result Diagrams: 08/03/18 11:59 08/03/18 11:59 Phys Exam - Physical Examination Constitutional: NAD HEENT: PERRLA, moist MMs, sclera anicteric, TM's clear, oral pharynx no lesions , 2+ tonsils Neck: no nodes, no JVD, supple, full ROM Respiratory: no wheezing, no rales, no rhonchi, clear to auscultation bilateral Cardiovascular: RRR, no significant murmur, no rub, gallop Gastrointestinal: soft, non-tender, no distention, positive bowel sounds Musculoskeletal: no edema, pulses present Neurological: non-focal, normal sensation, moves all 4 limbs Psychiatric: normal affect, A&O x 3 Skin: no rash Dx/Plan (1) Pseudomonal bacteremia Code(s): R78.81 - BACTEREMIA Status: Acute Comment: on Levaquin (2) CVA (cerebral vascular accident) Code(s): I63.9 - CEREBRAL INFARCTION, UNSPECIFIED Status: Suspected Qualifiers: Precerebral and cerebral artery: unspecified cerebral artery Comment: Left pontine CVA (3) DVT (deep venous thrombosis) Code(s): I82.409 - ACUTE EMBOLISM AND THOMBOS UNSP DEEP VN UNSP LOWER EXTREMITY Status: Acute Qualifiers: DVT location: lower extremity Chronicity: acute Laterality: bilateral Comment: on BID Lovenox (4) Uncontrolled hypertension Code(s): I10 - ESSENTIAL (PRIMARY) HYPERTENSION Status: Acute (5) Dementia Code(s): F03.90 - UNSPECIFIED DEMENTIA WITHOUT BEHAVIORAL DISTURBANCE Status: Chronic Qualifiers: Dementia type: Alzheimer's disease Dementia behavioral disturbance: with behavioral disturbance (6) Sepsis Code(s): A41.9 - SEPSIS, UNSPECIFIED ORGANISM Status: Suspected Qualifiers: Sepsis type: sepsis due to unspecified organism Qualified Code(s): A41.9 - Sepsis, unspecified organism (7) Coronary arteriosclerosis Status: Chronic (8) Hypertension Code(s): I10 - ESSENTIAL (PRIMARY) HYPERTENSION Status: Chronic Comment: uncontrolled - Plan DVT proph w/SCDs family to reach decision about IVC filter.IMO it will be life saving -: if she developes a PE which she at high risk for -: cont BID lovenox for now.cont ASA.Plavix on hold -: HD stable.Dit w aspiration risk per family request -: appreciate CTS input * . Review of Systems - Review of Systems Other: unobtainable due to dementia - Medications/Allergies Allergies/Adverse Reactions: Allergies Allergy/AdvReac Type Severity Reaction Status Date / Time No Known Drug Allergies Allergy Verified 08/03/18 04:42 Medications: Current Medications Acetaminophen (Tylenol) 650 mg PO Q4H PRN PRN Reason: Headache/Fever/Mild Pain (1-3) Last Admin: 08/07/18 09:55 Dose: 650 mg Acetaminophen (Tylenol) 650 mg [place] Q4H PRN PRN Reason: Headache/Fever/Mild Pain (1-3) Albuterol/Ipratropium (Duoneb) 3 ml NEB [id number] [facility] Last Admin: 08/07/18 08:43 Dose: 3 ml Amlodipine Besylate (Norvasc) 10 mg PO DAILY [facility] Last Admin: 08/07/18 09:54 Dose: 10 mg Aspirin (Aspirin Chewable) 81 mg PO DAILY [facility] Last Admin: 08/07/18 09:54 Dose: 81 mg Atorvastatin Calcium (Lipitor) 20 mg PO HS [facility] Last Admin: 08/06/18 21:27 Dose: 20 mg Bisacodyl (Dulcolax) 10 mg [place] DAILYPRN PRN PRN Reason: Constipation Clonidine (Gycuaguf-Xpy-5) 0.2 mg TD Q7DAYS [facility] Last Admin: 08/03/18 08:52 Dose: 0.2 mg Clopidogrel Bisulfate (Plavix) 75 mg PO DAILY [facility] Last Admin: 08/04/18 09:46 Dose: 75 mg Enalaprilat (Vasotec) 1.25 mg SLOW IVP Q6H PRN PRN Reason: BP > 220/110 Enoxaparin Sodium (Lovenox) 50 mg SC Q12HR [facility] Last Admin: 08/07/18 09:50 Dose: 50 mg Famotidine (Pepcid) 20 mg SLOW IVP QPM [facility] Last Admin: 08/06/18 21:27 Dose: 20 mg Guaifenesin/Dextromethorphan (Robitussin Dm) 15 ml PO Q4H PRN PRN Reason: Cough Hydralazine HCl (Apresoline) 10 mg SLOW IVP Q4H PRN PRN Reason: BP > 220/110 Hydralazine HCl (Apresoline) 10 mg SLOW IVP Q4H PRN PRN Reason: FOR SBP > 180 Last Admin: 08/05/18 03:37 Dose: 10 mg Levofloxacin 500 mg/ Device 100 mls @ 100 mls/hr IVPB Q24HR [facility] Last Admin: 08/06/18 22:56 Dose: 100 mls Labetalol HCl (Normodyne) 20 mg SLOW IVP Q1H PRN PRN Reason: BP > 220/110 Methylprednisolone Sodium Succinate (Solu-Medrol) 20 mg IVP Q12HR [facility] Last Admin: 08/07/18 09:50 Dose: 20 mg Metoprolol Tartrate (Lopressor) 25 mg PO BID [facility] Last Admin: 08/07/18 09:55 Dose: 25 mg Nitroglycerin (Nitro-Bid 2% Ointment) 0.5 inch TOP Q8HR [facility] Last Admin: 08/07/18 05:17 Dose: 0.5 inch Ondansetron HCl (Zofran) 4 mg IVP Q6H PRN PRN Reason: Nausea/Vomiting Sodium Chloride (Flush - Normal Saline) 10 ml IVF PRN PRN PRN Reason: Saline Flush Sodium Chloride (Flush - Normal Saline) 10 ml IVF Q12HR [facility] Last Admin: 08/07/18 09:55 Dose: 10 ml Ziprasidone (Geodon) 10 mg IM Q6H PRN PRN Reason: Agitation
[2018-08-07] MEDS: Guaifenesin DM 100-10/5 ML UDCUP PO PRN ×2 (13:30→17:58)
[2018-08-07] MEDS: Famotidine/PF 20 mg/2ml Vial SLOW IVP SCH (20:50)
[2018-08-07] MEDS: Atorvastatin Calcium 20 MG TAB PO SCH (20:51)
[2018-08-08] MEDS: Nitroglycerin 2% Ointment 1 INCH/1 GM Packet TOP SCH (05:13)
[2018-08-08] MEDS: Amlodipine 10 MG TAB PO SCH (08:41)
[2018-08-08] MEDS: Metoprolol Tartrate 25 MG TAB PO SCH ×2 (08:42→21:42)
[2018-08-08] MEDS: Enoxaparin Sodium 60 MG/0.6 ML SYRINGE SC SCH ×2 (08:42→21:41)
[2018-08-08] MEDS: Clopidogrel Bisulfate 75 MG TAB PO SCH (08:42)
[2018-08-08] MEDS ORDERED: Donepezil HCl 5 MG TAB PO SCH (10:00)
[2018-08-08] MEDS ORDERED: Docusate 100 MG CAP PO PRN (10:38)
[2018-08-08] MEDS ORDERED: Mag-Al 1200 mg/1200 mg/30 ML UDCUP PO PRN (10:38)
--- NOTE | 2018-08-08 10:40 | PDOC.PN ---
- Subjective Encounter Start Date: 08/08/18 Encounter Start Time: 10:39 Subjective: care discussed w daughter at bedside. -: pt eating better today as she didn;t eat much yesterday -: no acute events.more alert today - Objective Resuscitation Status: Resuscitation Status DNR:Do Not Resuscitate MAR Reviewed: Yes Vital Signs & Weight: Vital Signs (12 hours) Temp Pulse Resp BP BP Pulse Ox 08/08/18 08:41 88 106/66 08/08/18 07:43 98.3 F 88 18 106/66 96 08/08/18 06:13 78 16 08/08/18 04:00 98.3 F 73 16 109/59 L 96 08/08/18 00:00 97.1 F L 70 17 138/84 98 Weight Admit Weight 119 lb Weight 117 lb 8 oz I&O: 08/07/18 08/08/18 08/09/18 06:59 06:59 06:59 Intake Total 1360 120 Balance 1360 120 Result Diagrams: 08/03/18 11:59 08/03/18 11:59 Additional Labs: Microbiology 08/02/18 20:30 Venous blood - Left Arm Blood Culture - Final NO GROWTH IN 5 DAYS 08/02/18 14:04 Urine Straight Catheter Urine Culture - Final NO GROWTH AT 36 HOURS 08/02/18 13:25 Artery - Left Leg Blood Culture - Final Pseudomonas species Phys Exam - Physical Examination Constitutional: NAD HEENT: PERRLA, moist MMs, sclera anicteric, oral pharynx no lesions Neck: no nodes, no JVD, supple, full ROM Respiratory: no wheezing, no rales, no rhonchi, clear to auscultation bilateral Cardiovascular: RRR, no significant murmur, no rub Gastrointestinal: soft, non-tender, no distention, positive bowel sounds Musculoskeletal: no edema, pulses present Neurological: non-focal, normal sensation, moves all 4 limbs Dx/Plan (1) Pseudomonal bacteremia Code(s): R78.81 - BACTEREMIA Status: Acute Comment: on Levaquin (2) CVA (cerebral vascular accident) Code(s): I63.9 - CEREBRAL INFARCTION, UNSPECIFIED Status: Suspected Qualifiers: Precerebral and cerebral artery: unspecified cerebral artery Comment: Left pontine CVA (3) DVT (deep venous thrombosis) Code(s): I82.409 - ACUTE EMBOLISM AND THOMBOS UNSP DEEP VN UNSP LOWER EXTREMITY Status: Acute Qualifiers: DVT location: lower extremity Chronicity: acute Laterality: bilateral Comment: on BID Lovenox (4) Uncontrolled hypertension Code(s): I10 - ESSENTIAL (PRIMARY) HYPERTENSION Status: Acute (5) Dementia Code(s): F03.90 - UNSPECIFIED DEMENTIA WITHOUT BEHAVIORAL DISTURBANCE Status: Chronic Qualifiers: Dementia type: Alzheimer's disease Dementia behavioral disturbance: with behavioral disturbance (6) Sepsis Code(s): A41.9 - SEPSIS, UNSPECIFIED ORGANISM Status: Suspected Qualifiers: Sepsis type: sepsis due to unspecified organism Qualified Code(s): A41.9 - Sepsis, unspecified organism (7) Coronary arteriosclerosis Status: Chronic (8) Hypertension Code(s): I10 - ESSENTIAL (PRIMARY) HYPERTENSION Status: Chronic Comment: uncontrolled - Plan continue antibiotics, PT/OT, respiratory therapy, DVT proph w/lovenox IVC filter on wednesday per CTS.ap[preciate input -: pt will need to rem[facility] in [facility] then.cont BID lovenox -: 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 -: cont ASA.Plavix on hold for SX.HD stable * . Review of Systems - Review of Systems Other: Limited ROS as pt crawford snot reply to Qs directly due to dementia - Medications/Allergies Allergies/Adverse Reactions: Allergies Allergy/AdvReac Type Severity Reaction Status Date / Time No Known Drug Allergies Allergy Verified 08/03/18 04:42 Medications: Current Medications Acetaminophen (Tylenol) 650 mg PO Q4H PRN PRN Reason: Headache/Fever/Mild Pain (1-3) Last Admin: 08/07/18 09:55 Dose: 650 mg Acetaminophen (Tylenol) 650 mg [place] Q4H PRN PRN Reason: Headache/Fever/Mild Pain (1-3) Al Hydroxide/Mg Hydroxide (Maalox) 30 ml PO Q4H PRN PRN Reason: Heartburn or Indigestion Albuterol/Ipratropium (Duoneb) 3 ml NEB [id number] [facility] Last Admin: 08/08/18 06:13 Dose: 3 ml Amlodipine Besylate (Norvasc) 10 mg PO DAILY [facility] Last Admin: 08/08/18 08:41 Dose: 10 mg Aspirin (Aspirin Chewable) 81 mg PO DAILY [facility] Last Admin: 08/08/18 08:42 Dose: 81 mg Atorvastatin Calcium (Lipitor) 20 mg PO HS [facility] Last Admin: 08/07/18 20:51 Dose: 20 mg Bisacodyl (Dulcolax) 10 mg [place] DAILYPRN PRN PRN Reason: Constipation Clonidine (Qeshgsyn-Aqy-9) 0.2 mg TD Q7DAYS [facility] Last Admin: 08/03/18 08:52 Dose: 0.2 mg Clopidogrel Bisulfate (Plavix) 75 mg PO DAILY [facility] Last Admin: 08/08/18 08:42 Dose: 75 mg Docusate Sodium (Colace) 100 mg PO BIDPRN PRN PRN Reason: Constipation Donepezil HCl (Aricept) 5 mg PO BID [facility] Donepezil HCl (Aricept) 5 mg PO NOW [facility] Stop: 08/08/18 12:00 Enalaprilat (Vasotec) 1.25 mg SLOW IVP Q6H PRN PRN Reason: BP > 220/110 Enoxaparin Sodium (Lovenox) 50 mg SC Q12HR [facility] Last Admin: 08/08/18 08:42 Dose: 50 mg Famotidine (Pepcid) 20 mg SLOW IVP QPM [facility] Last Admin: 08/07/18 20:50 Dose: 20 mg Guaifenesin/Dextromethorphan (Robitussin Dm) 15 ml PO Q4H PRN PRN Reason: Cough Last Admin: 08/07/18 17:58 Dose: 15 ml Hydralazine HCl (Apresoline) 10 mg SLOW IVP Q4H PRN PRN Reason: BP > 220/110 Hydralazine HCl (Apresoline) 10 mg SLOW IVP Q4H PRN PRN Reason: FOR SBP > 180 Last Admin: 08/05/18 03:37 Dose: 10 mg Levofloxacin 500 mg/ Device 100 mls @ 100 mls/hr IVPB Q24HR [facility] Last Admin: 08/07/18 20:50 Dose: 100 mls Labetalol HCl (Normodyne) 20 mg SLOW IVP Q1H PRN PRN Reason: BP > 220/110 Metoprolol Tartrate (Lopressor) 25 mg PO BID [facility] Last Admin: 08/08/18 08:42 Dose: 25 mg Nitroglycerin (Nitro-Bid 2% Ointment) 0.5 inch TOP Q8HR [facility] Last Admin: 08/08/18 05:13 Dose: 0.5 inch Ondansetron HCl (Zofran) 4 mg IVP Q6H PRN PRN Reason: Nausea/Vomiting Prednisone (Prednisone) 40 mg PO QAM-WM [facility] Sodium Chloride (Flush - Normal Saline) 10 ml IVF PRN PRN PRN Reason: Saline Flush Sodium Chloride (Flush - Normal Saline) 10 ml IVF Q12HR [facility] Last Admin: 08/08/18 08:42 Dose: 10 ml Ziprasidone (Geodon) 10 mg IM Q6H PRN PRN Reason: Agitation
[2018-08-08] MEDS: Atorvastatin Calcium 20 MG TAB PO SCH (21:41)
[2018-08-08] MEDS: Donepezil HCl 5 MG TAB PO SCH (21:41)
[2018-08-08] MEDS: Famotidine 20 MG TAB PO SCH (21:42)
[2018-08-09] MEDS: Metoprolol Tartrate 25 MG TAB PO SCH ×2 (08:44→21:27)
[2018-08-09] MEDS: Clopidogrel Bisulfate 75 MG TAB PO SCH (08:44)
[2018-08-09] MEDS: Amlodipine 10 MG TAB PO SCH (08:44)
[2018-08-09] MEDS: predniSONE 20 MG TAB PO SCH (08:44)
[2018-08-09] MEDS: Donepezil HCl 5 MG TAB PO SCH ×2 (08:44→21:27)
[2018-08-09] MEDS: Enoxaparin Sodium 60 MG/0.6 ML SYRINGE SC SCH ×2 (08:45→21:27)
--- NOTE | 2018-08-09 10:37 | PQF ---
DATE: 08-09-18 ATTN: DR. ERAN MURPHY Please exercise your independent, professional judgment in responding to the clarification form. Clinical indicators are provided on the bottom of this form for your review Please check appropriate box(s): [ X ] Encephalopathy: Type: [ X ] Acute [ ] Subacute [ ] Chronic Etiology: [ ] Hypertensive [ X ] Metabolic [ ] Toxic [ ] Septic [ ] Other (please specify) [ ] Transient Alteration of Awareness [ ] Other diagnosis [ ] Unable to determine In addition, please specify: Present on Admission (POA): [ X ] Yes [ ] No [ ] Unable to determine For continuity of documentation, please document condition throughout progress notes and discharge summary. Thank You. CLINICAL INDICATORS - SIGNS / SYMPTOMS / LABS ER: LAST SEEN NORMAL 3 DAYS AGO, PT BP 202 SYSTOLIC, RECENT HX OF UTI H&P: REASON FOR ADMISSION: ACUTE ENCEPHALOPATHY, POSSIBLE CVA WITH R SIDED WEAKNESS H&P: PER DAUGHTER, THE PATIENT WAS CONFUSED ON THE PHONE FROM WEDNESDAY, LETHARGIC AND NONVERBAL AT PRESENT. PATIENT HAS ACUTE ENCEPHALOPATHY WITH POSSIBLE SEPSIS. RISK FACTORS: ER: LAST SEEN NORMAL 3 DAYS AGO, PT BP 202 SYSTOLIC, RECENT HX OF UTI ER: BP: 226/112, 226/91, 216/93, 206/89, ER DX : CVA TREATMENTS: 08-03-18: NEURO CONSULT ER: IVF NS (This form is maintained as a part of the permanent medical record) 2014 [employer] All Rights Reserved [email or web address] [email or web address] Office: [phone] [facility]
--- NOTE | 2018-08-09 13:53 | PDOC.PN ---
- Subjective Encounter Start Date: 08/09/18 Encounter Start Time: 13:51 Subjective: no new complaints.no overnight events. -: no family at bedside - Objective Resuscitation Status: 08/09/18 11:36 Resuscitation Status Routine Resuscitation Status: DNAR: NO Resuscitation Discussed with: POA daughter Lisa Barton and at bedside MAR Reviewed: Yes Vital Signs & Weight: Vital Signs (12 hours) Temp Pulse Resp BP BP Pulse Ox 08/09/18 11:42 97.7 F 72 14 100/69 100 08/09/18 08:44 70 133/82 08/09/18 07:54 98.1 F 70 14 133/82 100 08/09/18 04:00 97.3 F L 67 18 129/59 L 96 Weight Admit Weight 119 lb Weight 117 lb 8 oz I&O: 08/08/18 08/09/18 08/10/18 06:59 06:59 06:59 Intake Total 1360 805 120 Balance 1360 805 120 Result Diagrams: 08/03/18 11:59 08/03/18 11:59 Phys Exam - Physical Examination Constitutional: NAD HEENT: PERRLA, moist MMs, sclera anicteric, oral pharynx no lesions Neck: no nodes, no JVD, supple, full ROM Respiratory: no wheezing, no rales, no rhonchi, clear to auscultation bilateral Cardiovascular: RRR, no significant murmur, no rub Gastrointestinal: soft, non-tender, no distention, positive bowel sounds Musculoskeletal: no edema, pulses present Neurological: non-focal, normal sensation, moves all 4 limbs Skin: no rash Dx/Plan (1) Pseudomonal bacteremia Code(s): R78.81 - BACTEREMIA Status: Acute Comment: on Levaquin (2) CVA (cerebral vascular accident) Code(s): I63.9 - CEREBRAL INFARCTION, UNSPECIFIED Status: Suspected Qualifiers: Precerebral and cerebral artery: unspecified cerebral artery Comment: Left pontine CVA (3) DVT (deep venous thrombosis) Code(s): I82.409 - ACUTE EMBOLISM AND THOMBOS UNSP DEEP VN UNSP LOWER EXTREMITY Status: Acute Qualifiers: DVT location: lower extremity Chronicity: acute Laterality: bilateral Comment: on BID Lovenox (4) Uncontrolled hypertension Code(s): I10 - ESSENTIAL (PRIMARY) HYPERTENSION Status: Acute (5) Dementia Code(s): F03.90 - UNSPECIFIED DEMENTIA WITHOUT BEHAVIORAL DISTURBANCE Status: Chronic Qualifiers: Dementia type: Alzheimer's disease Dementia behavioral disturbance: with behavioral disturbance (6) Sepsis Code(s): A41.9 - SEPSIS, UNSPECIFIED ORGANISM Status: Suspected Qualifiers: Sepsis type: sepsis due to unspecified organism Qualified Code(s): A41.9 - Sepsis, unspecified organism (7) Coronary arteriosclerosis Status: Chronic (8) Hypertension Code(s): I10 - ESSENTIAL (PRIMARY) HYPERTENSION Status: Chronic Comment: uncontrolled - Plan continue antibiotics, PT/OT, 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 on Lovenox BID for DVT -: no OAC fci d/t fall risk -: Hd stable. * . Review of Systems - Review of Systems Other: can not be obtained due to dementia - Medications/Allergies Allergies/Adverse Reactions: Allergies Allergy/AdvReac Type Severity Reaction Status Date / Time No Known Drug Allergies Allergy Verified 08/03/18 04:42 Medications: Current Medications Acetaminophen (Tylenol) 650 mg PO Q4H PRN PRN Reason: Headache/Fever/Mild Pain (1-3) Last Admin: 08/07/18 09:55 Dose: 650 mg Acetaminophen (Tylenol) 650 mg [place] Q4H PRN PRN Reason: Headache/Fever/Mild Pain (1-3) Al Hydroxide/Mg Hydroxide (Maalox) 30 ml PO Q4H PRN PRN Reason: Heartburn or Indigestion Last Admin: 08/08/18 11:25 Dose: 30 ml Albuterol/Ipratropium (Duoneb) 3 ml NEB [id number] [facility] Last Admin: 08/09/18 06:58 Dose: 3 ml Amlodipine Besylate (Norvasc) 10 mg PO DAILY [facility] Last Admin: 08/09/18 08:44 Dose: 10 mg Aspirin (Aspirin Chewable) 81 mg PO DAILY [facility] Last Admin: 08/09/18 08:44 Dose: 81 mg Atorvastatin Calcium (Lipitor) 20 mg PO HS [facility] Last Admin: 08/08/18 21:41 Dose: 20 mg Bisacodyl (Dulcolax) 10 mg AL DAILYPRN PRN PRN Reason: Constipation Clonidine (Yqxjobfs-Xsv-4) 0.2 mg TD Q7DAYS [facility] Last Admin: 08/03/18 08:52 Dose: 0.2 mg Clopidogrel Bisulfate (Plavix) 75 mg PO DAILY [facility] Last Admin: 08/09/18 08:44 Dose: 75 mg Docusate Sodium (Colace) 100 mg PO BIDPRN PRN PRN Reason: Constipation Donepezil HCl (Aricept) 5 mg PO BID [facility] Last Admin: 08/09/18 08:44 Dose: 5 mg Enalaprilat (Vasotec) 1.25 mg SLOW IVP Q6H PRN PRN Reason: BP > 220/110 Enoxaparin Sodium (Lovenox) 50 mg SC Q12HR [facility] Last Admin: 08/09/18 08:45 Dose: 50 mg Famotidine (Pepcid) 20 mg PO QPM [facility] Last Admin: 08/08/18 21:42 Dose: 20 mg Guaifenesin/Dextromethorphan (Robitussin Dm) 15 ml PO Q4H PRN PRN Reason: Cough Last Admin: 08/07/18 17:58 Dose: 15 ml Hydralazine HCl (Apresoline) 10 mg SLOW IVP Q4H PRN PRN Reason: BP > 220/110 Hydralazine HCl (Apresoline) 10 mg SLOW IVP Q4H PRN PRN Reason: FOR SBP > 180 Last Admin: 08/05/18 03:37 Dose: 10 mg Levofloxacin 500 mg/ Device 100 mls @ 100 mls/hr IVPB Q24HR [facility] Last Admin: 08/08/18 23:34 Dose: 100 mls Labetalol HCl (Normodyne) 20 mg SLOW IVP Q1H PRN PRN Reason: BP > 220/110 Metoprolol Tartrate (Lopressor) 25 mg PO BID [facility] Last Admin: 08/09/18 08:44 Dose: 25 mg Ondansetron HCl (Zofran) 4 mg IVP Q6H PRN PRN Reason: Nausea/Vomiting Prednisone (Prednisone) 40 mg PO QAM-WM [facility] Last Admin: 08/09/18 08:44 Dose: 40 mg Sodium Chloride (Flush - Normal Saline) 10 ml IVF PRN PRN PRN Reason: Saline Flush Sodium Chloride (Flush - Normal Saline) 10 ml IVF Q12HR [facility] Last Admin: 08/09/18 08:51 Dose: 10 ml Ziprasidone (Geodon) 10 mg IM Q6H PRN PRN Reason: Agitation
[2018-08-09] MEDS ORDERED: Docusate Sodium 100 MG/10 ML UDCUP PO PRN (16:30)
[2018-08-09] MEDS: Famotidine 20 MG TAB PO SCH (21:27)
[2018-08-09] MEDS: Atorvastatin Calcium 20 MG TAB PO SCH (21:27)
[2018-08-10] MEDS ORDERED: Lidocaine 1% (PF) 30 ML VIAL ONE (06:37)
[2018-08-10] MEDS: Enoxaparin Sodium 60 MG/0.6 ML SYRINGE SC SCH ×2 (08:14→21:08)
[2018-08-10] MEDS: Clopidogrel Bisulfate 75 MG TAB PO SCH (11:53)
[2018-08-10] MEDS: predniSONE 20 MG TAB PO SCH (11:53)
[2018-08-10] MEDS: Metoprolol Tartrate 25 MG TAB PO SCH ×2 (11:55→21:08)
[2018-08-10] MEDS: cloNIDine 0.2mg/24 Hour PATCH TD SCH (11:55)
[2018-08-10] MEDS: Amlodipine 10 MG TAB PO SCH (11:55)
[2018-08-10] MEDS: Donepezil HCl 5 MG TAB PO SCH ×2 (11:55→21:09)
--- NOTE | 2018-08-10 12:24 | OP ---
DATE OF PROCEDURE: 08/09/2018 PROCEDURE PERFORMED: Cordis OPTEASE inferior vena cava filter placement with ultrasonographic and fluoroscopic guidance. PREOPERATIVE DIAGNOSIS: Bilateral deep venous thromboses with relative contraindication to anticoagulation. POSTOPERATIVE DIAGNOSIS: Bilateral deep venous thromboses with relative contraindication to anticoagulation. ANESTHESIA: 1% lidocaine, local anesthesia. INDICATION FOR PROCEDURE: The patient is an 83-year-old woman, admitted with a stroke, who is a poor candidate for anticoagulation. She was found to have bilateral deep venous thromboses and after a lengthy discussion with family, they have asked that we proceed with vena cava filter placement. Because of the patient had an empiric blood culture that was positive earlier in this hospital stay, a removable filter has been placed even though the anticipation is that this will be permanent device. FINDINGS: A 7.4 minutes of fluoro time and 15 mL of Isovue contrast were used. Left renal vein was about the top of L2 and the right renal vein was about the bottom of L2, the upper tip of the filter was placed just above the top of L3. DESCRIPTION OF PROCEDURE: After informed consent was obtained from the patient's family, the patient was taken to the medical lab specialist and positioned supine on the medical lab specialist table. Her groins were prepped and draped in sterile fashion. Ultrasound was used to identify the common femoral artery and vein, and to confirm the compressibility of the common femoral vein under ultrasonographic guidance. Femoral vein was cannulated with large-bore needle and under fluoroscopy, a guidewire was placed into the vena cava. The needle was removed. The tract was dilated and under fluoroscopic guidance, an introducer sheath was placed. Inferior venacavography relatively easily demonstrated the origin of the left renal vein. Followup venacavography did not as easily demonstrate the right renal vein and was opted to attempt probing with catheter and wire to identify its origin. The vein cannot be intubated in that manner. The pattern of catheter and wire tracks suggested its origin. Followup venacavography was done, which demonstrated the origin of the right renal vein. The catheter and wire via catheter was removed and the introducer sheath was withdrawn slightly to be below the origin of the right renal vein and OPTEASE vena cava filter was oriented and then advanced through the introducer sheath. It was deployed by simultaneously advancing withdrawing the introducer sheath. The introducer sheath was removed and hemostasis was achieved with direct pressure. The patient was taken to the recovery area for observation before being returned to her room. Job ID: [id number]
--- NOTE | 2018-08-10 13:34 | PDOC.PN ---
- Subjective Encounter Start Date: 08/10/18 Encounter Start Time: 13:32 Subjective: s/p IVC filter placement this morning.feels well.family at bedside - Objective Resuscitation Status - Order Detail: 08/09/18 11:36 Resuscitation Status Routine Resuscitation Status: DNAR: NO Resuscitation Discussed with: POA daughter Lisa Barton and at bedside MAR Reviewed: Yes Vital Signs & Weight: Vital Signs (12 hours) Temp Pulse Resp BP BP Pulse Ox 08/10/18 11:55 72 122/54 L 08/10/18 11:33 98.0 F 72 16 122/54 L 94 L 08/10/18 08:00 97.6 F 65 16 127/64 100 08/10/18 04:00 98.4 F 69 16 100/47 L 97 Weight Admit Weight 119 lb Weight 117 lb 8 oz I&O: 08/09/18 08/10/18 08/11/18 06:59 06:59 06:59 Intake Total 805 875 Balance 805 875 Result Diagrams: 08/03/18 11:59 08/03/18 11:59 Additional Labs: Microbiology 08/02/18 20:30 Venous blood - Left Arm Blood Culture - Final NO GROWTH IN 5 DAYS 08/02/18 14:04 Urine Straight Catheter Urine Culture - Final NO GROWTH AT 36 HOURS 08/02/18 13:25 Artery - Left Leg Blood Culture - Final Pseudomonas species Phys Exam - Physical Examination Constitutional: NAD HEENT: PERRLA, moist MMs, sclera anicteric, oral pharynx no lesions Neck: no nodes, no JVD, supple, full ROM Respiratory: no wheezing, no rales, no rhonchi, clear to auscultation bilateral Cardiovascular: RRR, no significant murmur Gastrointestinal: soft, non-tender, no distention, positive bowel sounds Musculoskeletal: no edema, pulses present Neurological: non-focal, normal sensation, moves all 4 limbs Psychiatric: normal affect Dx/Plan (1) Pseudomonal bacteremia Code(s): R78.81 - BACTEREMIA Status: Acute Comment: on Levaquin (2) CVA (cerebral vascular accident) Code(s): I63.9 - CEREBRAL INFARCTION, UNSPECIFIED Status: Suspected Qualifiers: Precerebral and cerebral artery: unspecified cerebral artery Comment: Left pontine CVA (3) DVT (deep venous thrombosis) Code(s): I82.409 - ACUTE EMBOLISM AND THOMBOS UNSP DEEP VN UNSP LOWER EXTREMITY Status: Acute Qualifiers: DVT location: lower extremity Chronicity: acute Laterality: bilateral Comment: on BID Lovenox.s/p IVC filter placement 08/10/18 (4) Uncontrolled hypertension Code(s): I10 - ESSENTIAL (PRIMARY) HYPERTENSION Status: Acute Comment: BP better controlled now. (5) Dementia Code(s): F03.90 - UNSPECIFIED DEMENTIA WITHOUT BEHAVIORAL DISTURBANCE Status: Chronic Qualifiers: Dementia type: Alzheimer's disease Dementia behavioral disturbance: with behavioral disturbance (6) Sepsis Code(s): A41.9 - SEPSIS, UNSPECIFIED ORGANISM Status: Suspected Qualifiers: Sepsis type: sepsis due to unspecified organism Qualified Code(s): A41.9 - Sepsis, unspecified organism (7) Coronary arteriosclerosis Status: Chronic (8) Hypertension Code(s): I10 - ESSENTIAL (PRIMARY) HYPERTENSION Status: Chronic Comment: uncontrolled (9) Acute metabolic encephalopathy Code(s): G93.41 - METABOLIC ENCEPHALOPATHY Status: Resolved - Plan continue antibiotics, PT/OT, respiratory therapy, incentive spirometry, out of bed/ambulate, DVT proph w/SCDs HD stable post IVC filter.cont lovenox in house but stop on DC -: not a candidate for OAC due to dementia,fall risk.discussed w family in [place] -: restart plavix .cont ASA,statin. -: cont BB given h/o CAD and now CVA. -: DC to rehab when accepted.clinically ready.Avoidable day #1 * . Review of Systems - Review of Systems Other: limited due to dementia - Medications/Allergies Allergies/Adverse Reactions: Allergies Allergy/AdvReac Type Severity Reaction Status Date / Time No Known Drug Allergies Allergy Verified 08/03/18 04:42 Medications: Current Medications Acetaminophen (Tylenol) 650 mg PO Q4H PRN PRN Reason: Headache/Fever/Mild Pain (1-3) Last Admin: 08/07/18 09:55 Dose: 650 mg Acetaminophen (Tylenol) [address] Q4H PRN PRN Reason: Headache/Fever/Mild Pain (1-3) Al Hydroxide/Mg Hydroxide (Maalox) 30 ml PO Q4H PRN PRN Reason: Heartburn or Indigestion Last Admin: 08/08/18 11:25 Dose: 30 ml Albuterol/Ipratropium (Duoneb) 3 ml NEB [id number] [facility] Last Admin: 08/10/18 06:54 Dose: Not Given Amlodipine Besylate (Norvasc) 10 mg PO DAILY [facility] Last Admin: 08/10/18 11:55 Dose: 10 mg Aspirin (Aspirin Chewable) 81 mg PO DAILY [facility] Last Admin: 08/10/18 11:53 Dose: 81 mg Atorvastatin Calcium (Lipitor) 20 mg PO HS [facility] Last Admin: 08/09/18 21:27 Dose: 20 mg Bisacodyl (Dulcolax) [address] DAILYPRN PRN PRN Reason: Constipation Clonidine ([id number]-[id number]-4) 0.2 mg TD Q7DAYS [facility] Last Admin: 08/10/18 11:55 Dose: 0.2 mg Clopidogrel Bisulfate (Plavix) 75 mg PO DAILY [facility] Last Admin: 08/10/18 11:53 Dose: 75 mg Docusate Sodium (Colace Liquid) 100 mg PO BIDPRN PRN PRN Reason: Constipation Donepezil HCl (Aricept) 5 mg PO BID [facility] Last Admin: 08/10/18 11:55 Dose: 5 mg Enalaprilat (Vasotec) 1.25 mg SLOW IVP Q6H PRN PRN Reason: BP > 220/110 Enoxaparin Sodium (Lovenox) 50 mg SC Q12HR [facility] Last Admin: 08/10/18 08:14 Dose: Not Given Famotidine (Pepcid) 20 mg PO QPM [facility] Last Admin: 08/09/18 21:27 Dose: 20 mg Guaifenesin/Dextromethorphan (Robitussin Dm) 15 ml PO Q4H PRN PRN Reason: Cough Last Admin: 08/07/18 17:58 Dose: 15 ml Hydralazine HCl (Apresoline) 10 mg SLOW IVP Q4H PRN PRN Reason: BP > 220/110 Hydralazine HCl (Apresoline) 10 mg SLOW IVP Q4H PRN PRN Reason: FOR SBP > 180 Last Admin: 08/05/18 03:37 Dose: 10 mg Levofloxacin 500 mg/ Device 100 mls @ 100 mls/hr IVPB Q24HR [facility] Last Admin: 08/09/18 23:07 Dose: 100 mls Labetalol HCl (Normodyne) 20 mg SLOW IVP Q1H PRN PRN Reason: BP > 220/110 Metoprolol Tartrate (Lopressor) 25 mg PO BID [facility] Last Admin: 08/10/18 11:55 Dose: 25 mg Ondansetron HCl (Zofran) 4 mg IVP Q6H PRN PRN Reason: Nausea/Vomiting Prednisone (Prednisone) 40 mg PO QAM-WM [facility] Last Admin: 08/10/18 11:53 Dose: 40 mg Sodium Chloride (Flush - Normal Saline) 10 ml IVF PRN PRN PRN Reason: Saline Flush Sodium Chloride (Flush - Normal Saline) 10 ml IVF Q12HR [facility] Last Admin: 08/10/18 11:56 Dose: 10 ml Ziprasidone (Geodon) 10 mg IM Q6H PRN PRN Reason: Agitation
[2018-08-10] MEDS ORDERED: predniSONE 20 MG TAB PO SCH (13:40)
[2018-08-10 14:08] VITALS: BMI 19.5
[2018-08-10] MEDS: Acetaminophen 325 MG TAB PO PRN (17:41)
[2018-08-10] MEDS: Atorvastatin Calcium 20 MG TAB PO SCH (21:09)
[2018-08-10] MEDS: Famotidine 20 MG TAB PO SCH (21:09)
[2018-08-11] MEDS: Amlodipine 10 MG TAB PO SCH (08:48)
[2018-08-11] MEDS: Clopidogrel Bisulfate 75 MG TAB PO SCH (08:48)
[2018-08-11] MEDS: Metoprolol Tartrate 25 MG TAB PO SCH ×2 (08:48→22:33)
[2018-08-11] MEDS: Donepezil HCl 5 MG TAB PO SCH ×2 (08:49→22:34)
[2018-08-11] MEDS: Enoxaparin Sodium 60 MG/0.6 ML SYRINGE SC SCH ×2 (08:49→22:34)
--- NOTE | 2018-08-11 12:45 | PDOC.PN ---
- Subjective Encounter Start Date: 08/11/18 Encounter Start Time: 12:43 Subjective: FEELS WELL. FAMILY AT BEDSIDE AND ALL qS ANSWERED -: NO NEW COMPLAINTS OR OVERNIGHT EVENTS - Objective Resuscitation Status - Order Detail: 08/09/18 11:36 Resuscitation Status Routine Resuscitation Status: DNAR: NO Resuscitation Discussed with: POA daughter Lisa Barton and at bedside MAR Reviewed: Yes Vital Signs & Weight: Vital Signs (12 hours) Temp Pulse Pulse Resp BP BP BP 08/11/18 11:48 98.5 F 68 16 121/71 08/11/18 10:52 70 121/71 08/11/18 08:48 66 151/61 H 08/11/18 07:52 97.3 F L 66 16 151/61 H 08/11/18 03:50 98.1 F 75 16 155/95 H Pulse Ox 08/11/18 11:48 97 08/11/18 10:52 08/11/18 08:48 08/11/18 07:52 97 08/11/18 03:50 93 L Weight Admit Weight 119 lb Weight 117 lb 8 oz I&O: 08/10/18 08/11/18 08/12/18 06:59 06:59 06:59 Intake Total 875 430 Balance 875 430 Result Diagrams: 08/03/18 11:59 08/03/18 11:59 Phys Exam - Physical Examination Constitutional: NAD HEENT: PERRLA, moist MMs, sclera anicteric, oral pharynx no lesions Neck: no nodes, no JVD, supple, full ROM Respiratory: no wheezing, no rales, no rhonchi, clear to auscultation bilateral Cardiovascular: RRR, no significant murmur, no rub Gastrointestinal: soft, non-tender, no distention, positive bowel sounds Musculoskeletal: no edema, pulses present Neurological: non-focal, normal sensation, moves all 4 limbs Psychiatric: normal affect, A&O x 3 Skin: no rash Dx/Plan (1) Pseudomonal bacteremia Code(s): R78.81 - BACTEREMIA Status: Acute Comment: on Levaquin (2) CVA (cerebral vascular accident) Code(s): I63.9 - CEREBRAL INFARCTION, UNSPECIFIED Status: Suspected Qualifiers: Precerebral and cerebral artery: unspecified cerebral artery Comment: Left pontine CVA (3) DVT (deep venous thrombosis) Code(s): I82.409 - ACUTE EMBOLISM AND THOMBOS UNSP DEEP VN UNSP LOWER EXTREMITY Status: Acute Qualifiers: DVT location: lower extremity Chronicity: acute Laterality: bilateral Comment: on BID Lovenox.s/p IVC filter placement 08/10/18 (4) Uncontrolled hypertension Code(s): I10 - ESSENTIAL (PRIMARY) HYPERTENSION Status: Acute Comment: BP better controlled now. (5) Dementia Code(s): F03.90 - UNSPECIFIED DEMENTIA WITHOUT BEHAVIORAL DISTURBANCE Status: Chronic Qualifiers: Dementia type: Alzheimer's disease Dementia behavioral disturbance: with behavioral disturbance (6) Sepsis Code(s): A41.9 - SEPSIS, UNSPECIFIED ORGANISM Status: Suspected Qualifiers: Sepsis type: sepsis due to unspecified organism Qualified Code(s): A41.9 - Sepsis, unspecified organism (7) Coronary arteriosclerosis Status: Chronic (8) Hypertension Code(s): I10 - ESSENTIAL (PRIMARY) HYPERTENSION Status: Chronic Comment: uncontrolled (9) Acute metabolic encephalopathy Code(s): G93.41 - METABOLIC ENCEPHALOPATHY Status: Resolved - Plan continue antibiotics, PT/OT, out of bed/ambulate, DVT proph w/SCDs Awaiting rehab approval.Avodable day #2 -: Hd stable. -: cont ASA,statin,plavix.BP stable -: care discussed w family.s/p IVC filter -: can stop ABx on Dc as pt has received almost 10 days of IV ABx * . Review of Systems - Review of Systems Other: limited ros due to dementia - Medications/Allergies Allergies/Adverse Reactions: Allergies Allergy/AdvReac Type Severity Reaction Status Date / Time No Known Drug Allergies Allergy Verified 08/03/18 04:42 Medications: Current Medications Acetaminophen (Tylenol) 650 mg PO Q4H PRN PRN Reason: Headache/Fever/Mild Pain (1-3) Last Admin: 08/10/18 17:41 Dose: 650 mg Acetaminophen (Tylenol) 650 mg SD Q4H PRN PRN Reason: Headache/Fever/Mild Pain (1-3) Al Hydroxide/Mg Hydroxide (Maalox) 30 ml PO Q4H PRN PRN Reason: Heartburn or Indigestion Last Admin: 08/08/18 11:25 Dose: 30 ml Albuterol/Ipratropium (Duoneb) 3 ml NEB [id number] [facility] Last Admin: 08/11/18 12:11 Dose: Not Given Amlodipine Besylate (Norvasc) 10 mg PO DAILY [facility] Last Admin: 08/11/18 08:48 Dose: 10 mg Aspirin (Aspirin Chewable) 81 mg PO DAILY [facility] Last Admin: 08/11/18 08:49 Dose: 81 mg Atorvastatin Calcium (Lipitor) 20 mg PO HS [facility] Last Admin: 08/10/18 21:09 Dose: 20 mg Bisacodyl (Dulcolax) 10 mg SD DAILYPRN PRN PRN Reason: Constipation Clonidine (Ztctgpeh-Yvb-6) 0.2 mg TD Q7DAYS [facility] Last Admin: 08/10/18 11:55 Dose: 0.2 mg Clopidogrel Bisulfate (Plavix) 75 mg PO DAILY [facility] Last Admin: 08/11/18 08:48 Dose: 75 mg Docusate Sodium (Colace Liquid) 100 mg PO BIDPRN PRN PRN Reason: Constipation Donepezil HCl (Aricept) 5 mg PO BID [facility] Last Admin: 08/11/18 08:49 Dose: 5 mg Enalaprilat (Vasotec) 1.25 mg SLOW IVP Q6H PRN PRN Reason: BP > 220/110 Enoxaparin Sodium (Lovenox) 50 mg SC Q12HR [facility] Last Admin: 08/11/18 08:49 Dose: 50 mg Famotidine (Pepcid) 20 mg PO QPM [facility] Last Admin: 08/10/18 21:09 Dose: 20 mg Guaifenesin/Dextromethorphan (Robitussin Dm) 15 ml PO Q4H PRN PRN Reason: Cough Last Admin: 08/07/18 17:58 Dose: 15 ml Hydralazine HCl (Apresoline) 10 mg SLOW IVP Q4H PRN PRN Reason: BP > 220/110 Hydralazine HCl (Apresoline) 10 mg SLOW IVP Q4H PRN PRN Reason: FOR SBP > 180 Last Admin: 08/05/18 03:37 Dose: 10 mg Levofloxacin 500 mg/ Device 100 mls @ 100 mls/hr IVPB Q24HR [facility] Last Admin: 08/11/18 00:35 Dose: 100 mls Labetalol HCl (Normodyne) 20 mg SLOW IVP Q1H PRN PRN Reason: BP > 220/110 Metoprolol Tartrate (Lopressor) 12.5 mg PO BID [facility] Last Admin: 08/11/18 08:48 Dose: 12.5 mg Ondansetron HCl (Zofran) 4 mg IVP Q6H PRN PRN Reason: Nausea/Vomiting Prednisone (Prednisone) 20 mg PO QAM-WM [facility] Last Admin: 08/11/18 08:47 Dose: 20 mg Sodium Chloride (Flush - Normal Saline) 10 ml IVF PRN PRN PRN Reason: Saline Flush Sodium Chloride (Flush - Normal Saline) 10 ml IVF Q12HR [facility] Last Admin: 08/11/18 08:49 Dose: 10 ml Ziprasidone (Geodon) 10 mg IM Q6H PRN PRN Reason: Agitation
--- NOTE | 2018-08-11 14:37 | PDOC.EVN ---
Event Note - Event Note Event Note: Called Peer to Peer line for [employer] as pt was declined for skilled. Unfortunately no one picked up and I was forced to leave a message and they will call back "WEDNESDAY"(Today is 08/11/18). I left my cell number and the encouraging message to receive a call back today during business hours to avoid further delay in DC of a stable Pt .Avoidable day # 2. Pt incurring more cost staying hospitalized as [employer] delaying Discharge disposition.
[2018-08-11] MEDS: Famotidine 20 MG TAB PO SCH (22:33)
[2018-08-11] MEDS: Atorvastatin Calcium 20 MG TAB PO SCH (22:33)
[2018-08-12] MEDS ORDERED: predniSONE 5 MG TAB PO SCH (08:00)
[2018-08-12] MEDS: Enoxaparin Sodium 60 MG/0.6 ML SYRINGE SC SCH (08:45)
[2018-08-12] MEDS: Clopidogrel Bisulfate 75 MG TAB PO SCH (08:46)
[2018-08-12] MEDS: Metoprolol Tartrate 25 MG TAB PO SCH (08:46)
[2018-08-12] MEDS: Donepezil HCl 5 MG TAB PO SCH (08:46)
[2018-08-12] MEDS: Amlodipine 10 MG TAB PO SCH (08:46)
[2018-08-12 15:36] VITALS: BP 110/53; TEMP 98.1
--- NOTE | 2018-08-12 21:49 | CON ---
DATE OF CONSULTATION: 08/12/2018 REASON FOR CONSULTATION: Bacteremia. An 83-year-old admitted about 10 days ago with a history of dementia, coronary bypass graft surgery, peripheral vascular disease with new onset of change in mental status and right-sided hemiplegia. The patient was nonverbal and lethargic. BP 190/120, pulse 76, respirations 18, temperature 98.8, O2 saturation 96%. The HEENT examination was noncontributory. Ocular movements were normal. Pupils were reacting symmetrically to light stimulus. Respiratory exam showed scattered expiratory wheezing. The heart examination was normal. The abdomen was soft and nontender or distended. The patient was awake, but could not communicate, did not follow commands. Initial white cell count 7000, hemoglobin 11, platelets of 327 with 80% neutrophils. Creatinine 1.0, glucose 120, and albumin 3.8. CT showed atrophy with chronic white matter ischemic changes. The patient was placed on cefepime, Levaquin, vancomycin, and Solu-Medrol. She had a consultation with Neurology. Dr. Dempsey recommended continuation of aspirin and Plavix. DVT was identified. A vena cava filter was recommended. The CT surgeon discussed the placement of IVC filter with the family and the device was inserted for prevention of pulmonary embolism. PMHx: dementia, cad, cabg, pvd All: Codeine, Penicillin, Propafenone SHx: non smoker, had been living with FHx: non contributory PHYSICAL EXAMINATION: GENERAL: Currently, Ms. Yuen is awake. She is nonverbal and resists exam. SKIN: Exam shows a very mild stage II area of pressure injury to the presacral region. She has a peripheral IV access and is urinating spontaneously in the diaper. No lymphadenopathy. HEENT: Ocular movements conjugate. Oral cavity, she did not allow me to examine. NECK: Appears supple. No jugular vein distention. LUNGS: Symmetric. Clear breath sounds. HEART: S1, S2 with diminished heart sounds. No S3 or S4. No murmurs. Regular rate. ABDOMEN: Soft, not distended or tender. No ascites. No bladder distention. No organomegaly. EXTREMITIES: No joint inflammatory activity. Pulses are 1+ in dorsalis pedis. NEURO: She has right hemiplegia. The left side, she is able to move, but does not follow commands. She is awake, does not interact with the examiner, resists exam. LABORATORY DATA: Urinalysis showed a wbc count 0 to 3. White cell count now is 10.6, hemoglobin 12 with 94% neutrophils. INR 1.0. Sodium 137, creatinine 1.2. Liver profile normal. Albumin 3.8. MICROBIOLOGY: With 1 out of 2 sets of blood cultures with Pseudomonas species, which was not further speciated with a broad susceptibility profile. This sample was drawn from an artery apparently. IMAGING: The vascular ultrasound demonstrated absence of thrombosis of the upper extremity and bilateral thrombosis in the lower extremities, very extensive thrombosis. Brain MRI; moderate global atrophy, small acute left paramedian pontine infarction, severe chronic ischemic disease, and remote cavitary lacunar infarction. Chest x-ray with no evidence of acute cardiopulmonary disease. ASSESSMENT: 1. Coronary artery disease. 2. Multiple prior cerebrovascular accidents with vascular dementia. 3. Acute pontine infarction, which led to the admission. 4. Pseudomonas species bacteremia. DISCUSSION: The patient appears to have stabilized from the standpoint of her cerebrovascular disease and has been waiting for discharge planning. The Pseudomonas species could represent contamination of the sample. It was not further speciated. It was not one of the usual Pseudomonas that one sees responsible for human infections and again may have been a contaminant of the sample. Discontinue antimicrobial therapy. Job ID: [id number] [facility]
--- NOTE | 2018-08-13 04:17 | DIS ---
DATE OF ADMISSION: 08/02/2018 DATE OF DISCHARGE: 08/12/2018 PRIMARY CARE PROVIDER: Pantera Mayfield MD DISCHARGE DIAGNOSES: 1. Ischemic stroke. 2. Deep venous thrombosis. 3. Acute encephalopathy. 4. Bacteremia. 5. Physical deconditioning. CONDITION OF THE PATIENT ON THE DAY OF DISCHARGE: Stable. I assessed Ms. Yuen on the day of discharge. She denies any chest pain or shortness of breath. Vital signs are stable. S1 and S2 are heard, regular. Lungs are clear to auscultation bilaterally. DISCHARGE MEDICATIONS: 1. Atorvastatin 20 mg at bedtime. 2. Aricept 5 mg 2 times a day. 3. Clonidine 0.2 mg patch every week. 4. Norvasc 10 mg daily. 5. Aspirin 81 mg daily. 6. Plavix 75 mg daily. 7. Pepcid 20 mg every evening. 8. Lopressor 12.5 mg 2 times a day. 9. Multivitamins 1 tablet daily. 10. Tylenol 650 mg every 4 hours as needed. 11. Maalox 30 mL every 4 hours as needed. 12. Dulcolax 10 mg daily as needed. 13. Docusate 100 mg 2 times a day as needed. CONSULTATIONS DURING THIS HOSPITALIZATION: 1. Neurology, Dr. Dempsey. 2. Cardiovascular Surgery, Dr. Camejo. HOSPITAL COURSE: Ms. Yuen is a pleasant 83-year-old lady, who was admitted to [facility] on August 02, 2018 for acute encephalopathy. Please refer to Dr. Wells's history and physical note dated August 02, 2018 for further details. MRI of the brain on August 03 showed a small acute left paramedian pontine infarction, severe chronic ischemic disease, and superimposed remote cavitary lacunar infarction, and moderate global atrophy with associated ventriculomegaly. She also had lower extremity doppler on August 03, which showed extensive deep venous thrombosis throughout each lower extremity. Neurology Service recommended continuing aspirin and Plavix, and statin for the stroke. They also recommended inferior vena cava filter for the DVT. She was seen by Cardiovascular Surgery and underwent inferior vena cava filter placement. 2D echocardiogram during this hospitalization showed left ventricular ejection fraction of 60% to 65%, sigmoid-shaped septum without hemodynamically significant LVOT obstruction, grade 1/3 diastolic dysfunction. She had normal right ventricular size and function. She also had mild mitral regurgitation and mild tricuspid regurgitation. She also had a blood culture that was positive for pseudomonas, which was pansensitive. She received 10 days of antibiotics for the same. She was also seen by Infectious Disease Service prior to discharge. She became physically deconditioned during this hospitalization. She is being discharged to [facility] for further management. Many thanks for allowing me to participate in your patient's care. Please feel free to contact me with any questions or concerns. DISCHARGE DISPOSITION: [facility]. TOTAL AMOUNT OF TIME SPENT COORDINATING THIS DISCHARGE: 32 minutes. Job ID: [id number]
--- NOTE | 2018-08-13 19:14 | EKG ---
Test Reason : STROKE ALERT Blood Pressure : / mmHG Vent. Rate : 073 BPM Atrial Rate : 073 BPM P-R Int : 134 ms QRS Dur : 072 ms QT Int : 424 ms P-R-T Axes : 070 031 052 degrees QTc Int : 467 ms Normal sinus rhythm Possible Left atrial enlargement Borderline ECG Confirmed by KARY SEQUEIRA DO ([id number]), editorial manager JAZZY HINDS ([id number]) on 08/13/2018 7:14:21 PM Referred By: Confirmed By:KARY SEQUEIRA DO
--- NOTE | 2018-08-15 09:41 | PQF ---
MEG BROWERKENDY [id number] [facility] [place] [id number] CLINICAL DOCUMENTATION CLARIFICATION FORM: POST DISCHARGE DATE: 08/15/2018 ATTN: Dr. Hairston Please exercise your independent, professional judgment in responding to the clarification form. Clinical indicators are provided on the bottom of this form for your review Please check appropriate box(s) to clarify if the following diagnosis has been ruled in or ruled out: Sepsis [ ] Ruled in diagnosis [ ] Continue to treat [ ] Resolved [ X ] Ruled out diagnosis [ ] Cannot rule out diagnosis [ ] Other diagnosis (please specify) [ ] Unable to determine In addition, please specify: Present on Admission (POA): [ ] Yes [ ] No [ ] Unable to determine For continuity of documentation, please document condition throughout progress notes and discharge summary. Thank You. CLINICAL INDICATORS - SIGNS / SYMPTOMS / LABS Per H&P: Possible sepsis. Per discharge summary: Bacteremia with positive blood culture for pseudomonas. Per Hospitalist progress notes: Suspected sepsis. Pseudomonas bacteremia. Per 08/12 Infectious Disease Consult: Bacteremia (Pseudomonas species bacteremia). The Pseudomonas species could represent contamination of the sample. It was not further speciated. It was not one of the usual Pseudomonas that one sees responsible for human infections and again my have been a contaminant of the sample. Discontinue antimicrobial therapy. . RISK FACTORS Positive blood culture for Pseudomonas. TREATMENTS IV Levaquin. IV hydration. (This form is maintained as a part of the permanent medical record) 2014 [employer] All Rights Reserved Sandi [email or web address] [phone] MTDD
== END 2018-08-12 17:28 | DRG 40 ==
LOC: ERS 12:10 → 2SE 21:22
PROVIDERS: ADMIT Internal Medicine; ATTEND Student in an Organized Health Care Education/Training Program
PROC: 06H03DZ Insertion of Intraluminal Device into Inferior Vena Cava, Percutaneous Approach (ICD-10-PCS; principal; 2018-08-09)
DX: I63.9 Cerebral infarction, unspecified (principal); G93.41 Metabolic encephalopathy; J44.1 Chronic obstructive pulmonary disease with (acute) exacerbation; R78.81 Bacteremia; G81.91 Hemiplegia, unspecified affecting right dominant side; I82.413 Acute embolism and thrombosis of femoral vein, bilateral; I82.433 Acute embolism and thrombosis of popliteal vein, bilateral; I82.443 Acute embolism and thrombosis of tibial vein, bilateral; I25.10 Atherosclerotic heart disease of native coronary artery without angina pectoris; E78.5 Hyperlipidemia, unspecified; I73.9 Peripheral vascular disease, unspecified; F01.50 Vascular dementia, unspecified severity, without behavioral disturbance, psychotic disturbance, mood disturbance, and anxiety; I10 Essential (primary) hypertension; Z66 Do not resuscitate; B96.5 Pseudomonas (aeruginosa) (mallei) (pseudomallei) as the cause of diseases classified elsewhere; Z87.891 Personal history of nicotine dependence; Z88.5 Allergy status to narcotic agent; Z88.0 Allergy status to penicillin; Z88.8 Allergy status to other drugs, medicaments and biological substances; Z79.82 Long term (current) use of aspirin; Z79.899 Other long term (current) drug therapy; Z95.1 Presence of aortocoronary bypass graft
CPT/HCPCS: 36415; 36416; 37191; 51701; 70450; 70551; 71045; 76942; 80053; 80061; 80306; 81003; 81015; 82533; 82553; 83605; 84484; 85025; 85049; 85300; 85362; 85379; 85384; 85610; 85730; 87040; 87077; 87086; 87149; 87186; 90471; 90662; 90670; 93005; 93306; 93970; 94640; 94760; A4353; C1769; G0008; G0009; G8978-GP-CN; G8979-GP-CL; G8987-GO-CM; G8988-GO-CM; G8989-GO-CM; G8996-GN-CL; G8997-GN-CK; J0360; J0692; J1644; J1650; J1956; J2001; J2920; J3370; J3486; J7050; J7506; J7620; S0028

== ENCOUNTER 2018-10-14 15:29 | Inpatient (IN) | payer MEDICARE ==
[2018-10-14 16:05] LABS: #Eosinphils 0.1 thou/uL (0.0-0.7); #Lymphocytes 0.9 thou/uL (1.20-3.40); #Monocytes 0.4 thou/uL (0.11-0.59); #Neutrophils 9.9 thou/uL (1.40-6.50); %Basophils 0.1 % (0.0-1.0); %Eosinophils 0.5 % (0.0-10.0); %Lymphocytes 8.2 % (21.0-51.0); %Monocytes 3.2 % (0.0-10.0); Hemoglobin 8.2 g/dL (12.0-16.0); Mean Corpuscular HGB CONC 30.9 g/dL (32.0-36.0); Mean Corpuscular Hemoglobin 26.5 pg (27.0-31.0); Mean Corpuscular Volume 85.8 fL (78.0-98.0); Mean Platelet Volume 7.9 fL (7.4-10.4); Platelet Count 499 thou/uL (130-400); RBC Distribution Width 15.2 % (11.5-14.5); Red Blood Cell (RBC) Count 3.11 mill/uL (4.20-5.40); White Blood Cell (WBC) Count 11.3 thou/uL (4.8-10.8)
--- NOTE | 2018-10-14 16:08 | CT ---
CT HEAD WITH CONTRAST: INDICATIONS: Stroke alert. Left facial drop. COMPARISON: Head CT from 08/05/2018. TECHNIQUE: Multiple axial tomograms obtained through the head without IV enhancement. FINDINGS: There is cortical volume loss. There is ventriculomegaly, which is stable. There are moderately sev ere chronic ischemic white matter changes, which appear stable. Old lacunar infarct in the brainstem , at the level of the funmilayo, to the left of midline, is more prominent today, but appears remote. Old cerebellar infarcts appear stable. No evidence of acute cortical infarct, mass, or hemorrhage. IMPRESSION: Cortical atrophy and severe chronic ischemic white matter changes with evidence of old lacunar infarc t. No evidence of acute cortical infarct. New lacunar infarcts may be obscured due to the chronic i schemic change. Consider MRI if there are new neurological deficits. Findings relayed to Dr. Gaspar at 3:58 p.m. CODE CR POS: GINO
[2018-10-14 16:15] LABS: INR-International Normal Ratio 1.2; Prothrombin Time 15.3 SEC (12.0-14.7)
[2018-10-14 16:18] LABS: PTT 21.2 SEC (22.9-36.1)
--- NOTE | 2018-10-14 16:28 | RAD ---
PORTABLE AP CHEST: Date: 10/14/18 HISTORY: Stroke. COMPARISON: 10/11/18. FINDINGS: Postsurgical changes related to CABG are again noted. Cardiac silhouette is magnified by projection. Pulmonary vasculature is within normal limits. There has been interval development of increased inter stitial densities at the medial right lung base, worrisome for developing pneumonia. There is linear density also at the left lung base, which may be related to atelectasis. Calcifications overlying the lung apices which may be related to vascular type calcifications. Vascular calcifications are seen i n the thoracic aorta. IVC filter overlies the abdomen just to the right of midline at the level of th e upper lumbar spine. Surgical clips also overlie the right upper quadrant. There is osteopenia. IMPRESSION: Interval development of linear and patchy densities in medial right lung base, which could be related to developing pneumonia. Follow-up to resolution is recommended. POS: GINO
[2018-10-14] MEDS ORDERED: Aspirin 300 MG Suppository ONE (16:30)
[2018-10-14 16:34] LABS: ALT (SGPT) 19 U/L (8-55); AST (SGOT) 27 U/L (5-34); Albumin 2.8 g/dL (3.4-4.8); Alkaline Phosphatase 68 U/L (40-150); Anion Gap 19 mmol/L (10-20); BUN (Urea Nitrogen) 96 mg/dL (9.8-20.1); Bilirubin, Total 0.2 mg/dL (0.2-1.2); Calc. Creatinine Clearance 0 mL/min (70-130); Calcium 9.4 mg/dL (7.8-10.44); Carbon Dioxide 21 mmol/L (23-31); Chloride 119 mmol/L (98-107); Estimated GFR-MDRD 6; Globulin 4.5 g/dL (2.4-3.5); Glucose 93 mg/dL (83-110); Potassium 5.1 mmol/L (3.5-5.1); Protein, Total 7.3 g/dL (6.0-8.3); Sodium 154 mmol/L (136-145)
[2018-10-14 16:47] LABS: CKMB 1.1 ng/mL (0-6.6)
--- NOTE | 2018-10-14 18:21 | PDOC.FPRHP ---
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 Patient's last normal was 9 am this morning, at 3 PM she was altered. At baseline, patient is oriented to person and can hold a conversation. Family reports she had been not eating well the past couple days, and she had recently been placed on Levaquin. ED reported left-sided facial droop. Family states at baseline she cannot move her right arm or leg. She also has dysphagia and uses thickened feeds. In the ED, CT was negative. Creatinine (baseline 1.2) elevated to 7.42. CXR showed Rt lung patchy infiltrates. EKG showed sinus tachycardia. - Allergies/Adverse Reactions Allergies Allergy/AdvReac Type Severity Reaction Status Date / Time No Known Drug Allergies Allergy Verified 08/03/18 04:42 - Home Medications Medication Instructions Recorded Confirmed Type Atorvastatin Calcium [Lipitor] 20 mg PO HS 07/11/14 10/15/18 History Multivitamin W/ Minerals 1 tab PO DAILY tab 03/01/18 10/15/18 Rx [Theragran M] Acetaminophen [Tylenol Regular 650 mg PO Q4H PRN tab 08/11/18 10/15/18 Rx Strength] Aluminum & Magnesium Hydroxide 30 ml PO Q4H PRN udcup 08/11/18 10/15/18 Rx [Maalox] Amlodipine [Norvasc] 10 mg PO DAILY tab 08/11/18 10/15/18 Rx Aspirin Chewable [Aspirin Chewable 81 mg PO DAILY tab 08/11/18 10/15/18 Rx Tablet] Bisacodyl [Dulcolax] 10 mg ME DAILYPRN PRN supp 08/11/18 10/15/18 Rx Clopidogrel Bisulfate [Plavix] 75 mg PO DAILY tab 08/11/18 10/15/18 Rx Docusate Sodium [Colace Liquid] 100 mg PO BIDPRN PRN udcup 08/11/18 10/15/18 Rx Donepezil HCl [Aricept] 5 mg PO BID tab 08/11/18 10/15/18 Rx Famotidine [Pepcid] 20 mg PO QPM tab 08/11/18 10/15/18 Rx Metoprolol Tartrate [Lopressor] 12.5 mg PO BID tab 08/11/18 10/15/18 Rx cloNIDine [Wyaixmak-PRA-1 Patch] 0.2 mg TD Q7DAYS patch 08/11/18 10/15/18 Rx Bisacodyl [Dulcolax] 10 mg ME DAILYPRN PRN supp 10/18/18 Rx Doxycycline [Vibramycin] 100 mg PO BID #10 cap 10/18/18 Rx - History PMHx: Dementia, 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, aphasia, dysphagia; HTN, DVT, COPD PSHx: Quadruple bypass, IVC filter placement, unknown abdominal surgery FHx: noncontributory Social: 60 pack year smoking hx, no alcohol or drug use - Review of Systems ROS unobtainable: due to mental status - Vital signs BP: [153/73] HR: [90] RR: [16] Tmax: [98.1] Pox: [99]% on [2L] Wt: [55 kg] - Physical Exam Constitutional: NAD, other (obtunded) HEENT: normocephalic and atraumatic, PERRLA, EOMI, conjunctiva clear, grossly normal hearing, oropharynx clear, other (mucous membranes dry) Neck: supple, no LAD, no bruits Heart: RRR, normal S1/S2, no murmurs/rubs/gallops, pulses present, no edema Lungs: other (diffuse wheezing, crackles RLL) Abdomen: soft, bowel sounds present, no masses/distention Neurological: other (0/5 strength RUE, 3/5 LUE) Skin: no rash/lesions, capillary refill <2 seconds Heme/Lymphatic: no unusual bruising or bleeding Psychiatric: other (Patient has GCS of 12, spontaneous eye opening and makes incomprehensible sounds. Unable to follow commands.) FMR H&P: Results - Labs Result Diagrams: 10/20/18 13:58 10/20/18 13:58 Lab results: WBC 11.3 thou/uL (4.8-10.8) H 10/14/18 15:47 Hgb 8.2 g/dL (12.0-16.0) L 10/14/18 15:47 Hct 26.7 % (36.0-47.0) L 10/14/18 15:47 MCV 85.8 fL (78.0-98.0) 10/14/18 15:47 Plt Count 499 thou/uL (130-400) H 10/14/18 15:47 Neutrophils % 88.0 % (42.0-75.0) H 10/14/18 15:47 Sodium 154 mmol/L (136-145) H 10/14/18 15:47 Potassium 5.1 mmol/L (3.5-5.1) 10/14/18 15:47 Chloride 119 mmol/L (98-107) H 10/14/18 15:47 Carbon Dioxide 21 mmol/L (23-31) L 10/14/18 15:47 BUN 96 mg/dL (9.8-20.1) H 10/14/18 15:47 Creatinine 7.42 mg/dL (0.6-1.1) H 10/14/18 15:47 Glucose 93 mg/dL (83-110) 10/14/18 15:47 Lactic Acid 1.2 mmol/L (0.5-2.2) 10/14/18 17:24 Calcium 9.4 mg/dL (7.8-10.44) 10/14/18 15:47 Total Bilirubin 0.2 mg/dL (0.2-1.2) 10/14/18 15:47 AST 27 U/L (5-34) 10/14/18 15:47 ALT 19 U/L (8-55) 10/14/18 15:47 Alkaline Phosphatase 68 U/L (40-150) 10/14/18 15:47 CK-MB (CK-2) 1.1 ng/mL (0-6.6) 10/14/18 15:47 Serum Total Protein 7.3 g/dL (6.0-8.3) 10/14/18 15:47 Albumin 2.8 g/dL (3.4-4.8) L 10/14/18 15:47 - EKG Interpretation EKG: Sinus tach - Radiology Interpretation CT scan - head Status: image reviewed by me, report reviewed by me Additional comment: negative Chest x-ray Status: image reviewed by me, report reviewed by me Additional comment: Rt patchy lung infiltrate FMR H&P: A/P - Problem List (1) Acute metabolic encephalopathy Status: Acute Code(s): G93.41 - METABOLIC ENCEPHALOPATHY (2) Acute encephalopathy Status: Acute Code(s): G93.40 - ENCEPHALOPATHY, UNSPECIFIED (3) Hypernatremia Status: Acute Code(s): E87.0 - HYPEROSMOLALITY AND HYPERNATREMIA (4) HCAP (healthcare-associated pneumonia) Status: Acute Code(s): J18.9 - PNEUMONIA, UNSPECIFIED ORGANISM (5) HEIDI (acute kidney injury) Status: Acute Code(s): N17.9 - ACUTE KIDNEY FAILURE, UNSPECIFIED (6) Demand ischemia Status: Acute Code(s): I24.8 - OTHER FORMS OF ACUTE ISCHEMIC HEART DISEASE (7) Dehydration Status: Acute Code(s): E86.0 - DEHYDRATION (8) History of CVA (cerebrovascular accident) Status: Chronic Code(s): Z86.73 - PRSNL HX OF TIA (TIA), AND CEREB INFRC W/O RESID DEFICITS (9) Hx of deep venous thrombosis Status: Chronic Code(s): Z86.718 - PERSONAL HISTORY OF OTHER VENOUS THROMBOSIS AND EMBOLISM (10) COPD (chronic obstructive pulmonary disease) Status: Chronic (11) Anemia Status: Acute Code(s): D64.9 - ANEMIA, UNSPECIFIED (12) DVT (deep venous thrombosis) Status: Chronic Code(s): I82.409 - ACUTE EMBOLISM AND THOMBOS UNSP DEEP VN UNSP LOWER EXTREMITY Qualifiers: DVT location: lower extremity Chronicity: acute Laterality: bilateral Comment: on BID Lovenox.s/p IVC filter placement 08/10/18 (13) Coronary arteriosclerosis Status: Chronic (14) Dementia Status: Chronic Code(s): F03.90 - UNSPECIFIED DEMENTIA WITHOUT BEHAVIORAL DISTURBANCE Qualifiers: Dementia type: Alzheimer's disease Dementia behavioral disturbance: with behavioral disturbance (15) Hypertension Status: Chronic Code(s): I10 - ESSENTIAL (PRIMARY) HYPERTENSION Comment: uncontrolled - Plan Acute Encephalopathy, r/o CVA -Metabolic vs CVA vs Infectious cause vs Other -Hx of CVA Jul 2018, residual right sided weakness -Last known normal 2/2 @ 9 AM, found at 3PM to be altered -CT negative -EKG showed sinus tach - Echo from 07/2018 showed EF 60-65% -ASA, plavix, statin -FLP studies -MRI in the AM -TSH pending -CXR showed rt patchy infiltrate, Procal 1.9, LA 1.2 -Levaquin, zosyn, vanc started 10/14/2018 -blood and urine cultures pending Hypernatremia -Likely 2/2 to dehydration -154 on admission -IV fluids -Continue to monitor with BMPs HCAP -Crackles in RLL -CXR showed Right patchy infiltrate -Levaquin, zosyn, vanc started 10/14/2018 -LA 1.2 -blood and urine cultures pending HEIDI -baseline Cr. 1.2 -Bun/Cr 96/7.42 -Urine studies pending Demand ischemia (elevated trop) -trending Trop, EKG sinus tach Dehydration -Pt has not been eating as much for past few days, mucous membranes dry on admission, Hypernatremic -NPO -MIVF -Urine studies Hx CVA -Jul 2018 w/ residual def/hemiplegia Rt arm, aphasia, dysphagia Dementia -Aricept -At baseline she is normally oriented to self per family -Aware HTN -Allow for permissive HTN for 24 hrs Hx DVT -Bilateral LE DVT w/ IVC filter COPD -duonebs q6h -60 PY smoking hx Anemia -FE studies Code status: DNAR DVT ppx: IVC filter in place Diet: NPO Dispo: LOS >2 midnights FMR H&P: Upper Level - Pertinent history Melissa Yuen is a 83 year old ID resident who presented to the ED due to mental status changes. Per ID records pt was apparently last seen normal @ 0900 this morning but was found @ 3pm not responsive and with left sided facial droop. Per Daughter who is present in the room, patient at baseline is alert and oriented to person at least and is able to conversant. She has a recent history of CVA and was hospitalized in July 2018 for treatment of CVA and bilateral LE DVT with IVC filter placement. Pt was discharged with dual antiplatelet therapy for stroke. - Pertinent findings BP: 153/72 P: 90 RR: 16 T: 98.1 O2: 99% on 2L Exam: General: pt responsive to loud noises and painful stimuli. opens eyes spontaneously; GCS 12 Heart: RRR, no murmurs, rubs, gallops. Lungs: diffuse wheezes throughout. Neuro: difficult to fully assess CN. 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 - Plan Date/Time: 10/14/18 [id number] I, Akua Florentinsammy, have evaluated this patient and agree with findings/plan as outlined by paid intern resident. Pertinent changes/additions are listed here. Metabolic encephalopathy - differentials include: acute CVA, infection, hypernatremia, toxins. - will admit to stroke for CVA rule out. Stroke team consulted. - pt NPO. Swallow study as pts mentation improves. - in case of acute CVA, pt may consider oral anticoagulation if dual antiplatelet therapy failed. - Echo from 07/2018 showed EF 60-65% Acute Renal Failure - likely related to volume depletion - will check FENa - repeat BMP Possible HCAP - CXR suggests possible R lower lung pneumonia. - Could be from hospital acquired pathogen vs. aspiration - will treat accordingly. Hypernatremia - free water deficit 5.5L - will attempt to avoid overcorrection - BMP Q6H Elevated troponin - likely secondary to demand ischemia - will continue to trend. - EKG shows sinus tach Normocytic anemia - iron studies pending Bilateral lower extremity DVT - IVC filter in place. History of prior stroke. - see #1 - continue statin, ASA, Plavix. History of COPD - former smoking history - Nebs ordered History of HTN - will continue to monitor. Addendum - Attending - Attending Attestation Date/Time: 10/24/18 [id number] I personally evaluated the patient and discussed the management with Dr. Valladares I agree with the History, Examination, Assessment and Plan documented above with any addition or exceptions noted below.
[2018-10-14] MEDS ORDERED: Piperacillin/Tazobactam 4.5 GM VIAL ONE (19:18)
[2018-10-14 19:41] LABS: Troponin I 0.071 ng/mL (< 0.028)
[2018-10-14] MEDS ORDERED: Vancomycin HCl 1.5 GM in Sodium Chloride 0.9% 250 ML 300 ML IVPB ONE (20:15)
[2018-10-14 20:16] LABS: Iron 12 ug/dL (50-170); Iron Binding Capacity, Total 165 mcg/dL (265-497)
[2018-10-14 20:21] LABS: Osmolality, Serum 383 mOsm/kg (280-295)
[2018-10-14 20:52] LABS: Ferritin 804.28 ng/mL (10-291)
[2018-10-14] MEDS ORDERED: Lidocaine 1% w/Epinephrine 1:100K 20 ML VIAL ONE (20:53)
[2018-10-14] MEDS ORDERED: Bisacodyl 10 MG SUPP PR PRN (21:03)
[2018-10-14] MEDS ORDERED: Sodium Chloride 0.9% 1,000 ML IV SCH (22:00)
[2018-10-14] MEDS ORDERED: Dextrose 5% in Water 1,000 ML IV SCH (22:15)
[2018-10-14] MEDS ORDERED: VANCOMYCIN HCL IVPB SCH (22:30)
[2018-10-14] MEDS ORDERED: SODIUM CHLORIDE 0.9% IVPB SCH (22:30)
[2018-10-14 22:41] LABS: Anion Gap 20 mmol/L (10-20); BUN (Urea Nitrogen) 95 mg/dL (9.8-20.1); Calc. Creatinine Clearance 0 mL/min (70-130); Calcium 8.7 mg/dL (7.8-10.44); Carbon Dioxide 19 mmol/L (23-31); Chloride 123 mmol/L (98-107); Estimated GFR-MDRD 6; Glucose 99 mg/dL (83-110); Sodium 157 mmol/L (136-145)
[2018-10-14] MEDS ORDERED: Sodium Chloride 0.45% 1,000 ML IV SCH (22:45)
[2018-10-14 23:35] LABS: Creatinine, Urine 98.17 mg/dL (47-110)
[2018-10-15 00:15] VITALS: BMI 17.9
[2018-10-15 03:18] LABS: #Lymphocytes 0.6 thou/uL (1.20-3.40); #Monocytes 0.6 thou/uL (0.11-0.59); %Eosinophils 0.3 % (0.0-10.0); %Lymphocytes 3.9 % (21.0-51.0); %Monocytes 3.7 % (0.0-10.0); %Neutrophils 92.1 % (42.0-75.0); Hemoglobin 6.4 g/dL (12.0-16.0); Mean Corpuscular HGB CONC 29.6 g/dL (32.0-36.0); Mean Corpuscular Hemoglobin 26.5 pg (27.0-31.0); Mean Corpuscular Volume 89.5 fL (78.0-98.0); Mean Platelet Volume 7.9 fL (7.4-10.4); Platelet Count 439 thou/uL (130-400); RBC Distribution Width 15.3 % (11.5-14.5); Red Blood Cell (RBC) Count 2.42 mill/uL (4.20-5.40); White Blood Cell (WBC) Count 16.3 thou/uL (4.8-10.8)
[2018-10-15 03:23] LABS: Anion Gap 19 mmol/L (10-20); BUN (Urea Nitrogen) 95 mg/dL (9.8-20.1); Calc. Creatinine Clearance 5 mL/min (70-130); Calcium 8.5 mg/dL (7.8-10.44); Carbon Dioxide 19 mmol/L (23-31); Chloride 123 mmol/L (98-107); Estimated GFR-MDRD 6; Glucose 90 mg/dL (83-110); Potassium 4.8 mmol/L (3.5-5.1); Sodium 156 mmol/L (136-145)
[2018-10-15 04:00] LABS: Cardiac Risk 2.8 (Less than 4.5)
[2018-10-15] MEDS ORDERED: Dextrose 5% in Water 1,000 ML IV SCH ×2 (04:30→10:09)
[2018-10-15 05:13] LABS: Lactic Acid 0.9 mmol/L (0.5-2.2)
[2018-10-15] MEDS ORDERED: Mag-Al 1200 mg/1200 mg/30 ML UDCUP PO PRN (05:34)
[2018-10-15] MEDS ORDERED: Docusate Sodium 100 MG/10 ML UDCUP PO PRN (05:34)
[2018-10-15] MEDS ORDERED: Bisacodyl 10 MG SUPP PR PRN (05:34)
[2018-10-15 05:35] LABS: Fibrinogen 723 mg/dL (253-463)
[2018-10-15 05:37] LABS: INR-International Normal Ratio 1.3; PTT 32.6 SEC (22.9-36.1); Prothrombin Time 16.5 SEC (12.0-14.7)
[2018-10-15 05:44] LABS: D-Dimer Test 5.69 *mcg/mL (0.27-0.43)
[2018-10-15 05:50] LABS: Anion Gap 18 mmol/L (10-20); BUN (Urea Nitrogen) 97 mg/dL (9.8-20.1); Calc. Creatinine Clearance 5 mL/min (70-130); Calcium 8.6 mg/dL (7.8-10.44); Carbon Dioxide 20 mmol/L (23-31); Chloride 123 mmol/L (98-107); Estimated GFR-MDRD 6; Glucose 96 mg/dL (83-110); Potassium 4.7 mmol/L (3.5-5.1); Sodium 156 mmol/L (136-145)
[2018-10-15 05:59] LABS: FSP-Qualitative ABNORMAL (Normal)
[2018-10-15 06:00] LABS: FSP-Semiquantitative >=5 & <20 mcg/mL (Less than 5)
[2018-10-15 06:01] LABS: Platelet Count 421 thou/uL (130-400)
--- NOTE | 2018-10-15 06:08 | PDOC.FM ---
- Subjective Subjective: Ms. Yuen is resting in bed, no acute distress. alerts to sound, aphasic. - Objective Vital Signs & Weight: Vital Signs (12 hours) Temp Pulse Resp BP Pulse Ox 10/15/18 04:00 98.7 F 94 20 139/67 98 10/15/18 00:31 114 H 20 100 10/15/18 00:00 98.2 F 97 20 100/58 L 100 10/14/18 20:00 97.9 F 104 H 20 153/77 H 100 Weight Weight 50.53 kg Result Diagrams: 10/15/18 04:20 10/15/18 04:20 Phys Exam - Physical Examination Constitutional: NAD HEENT: moist MMs Neck: no JVD Respiratory: clear to auscultation bilateral Cardiovascular: RRR, no significant murmur Gastrointestinal: soft, non-tender, no distention Musculoskeletal: no edema R sided deficets, L sided weakness Psychiatric: normal affect Dx/Plan (1) HEIDI (acute kidney injury) Code(s): N17.9 - ACUTE KIDNEY FAILURE, UNSPECIFIED Status: Acute (2) Acute encephalopathy Code(s): G93.40 - ENCEPHALOPATHY, UNSPECIFIED Status: Acute (3) COPD (chronic obstructive pulmonary disease) Status: Chronic (4) History of CVA (cerebrovascular accident) Code(s): Z86.73 - PRSNL HX OF TIA (TIA), AND CEREB INFRC W/O RESID DEFICITS Status: Chronic (5) Uncontrolled hypertension Code(s): I10 - ESSENTIAL (PRIMARY) HYPERTENSION Status: Acute (6) Dementia Code(s): F03.90 - UNSPECIFIED DEMENTIA WITHOUT BEHAVIORAL DISTURBANCE Status: Chronic Qualifiers: Dementia type: Alzheimer's disease Dementia behavioral disturbance: with behavioral disturbance (7) Hypertension Code(s): I10 - ESSENTIAL (PRIMARY) HYPERTENSION Status: Chronic (8) CVA (cerebral vascular accident) Code(s): I63.9 - CEREBRAL INFARCTION, UNSPECIFIED Status: Suspected Qualifiers: Precerebral and cerebral artery: unspecified cerebral artery - Plan Plan: Acute Encephalopathy, r/o CVA -Metabolic vs CVA vs Infectious cause -Hx of CVA Jul 2018, residual right sided weakness -Last known normal 2/2 @ 9 AM, found at 3PM to be altered -CT negative, EKG showed sinus tach - Echo from 07/2018 showed EF 60-65% -ASA, plavix, statin. FLP TSH wnl -MRI today CAP -CXR showed rt patchy infiltrate, Procal 1.9, LA 1.2 -Levaquin, zosyn, vanc started 10/14/2018 -blood and urine cultures pending Dehydration -Pt has not been eating as much for past few days, mucous membranes dry on admission, Hypernatremic - D5 1/2 NS 150 ml/hr Hypernatremia -Likely 2/2 to dehydration, see plan above -154 on admission -Continue to monitor with BMPs HEIDI -baseline Cr. 1.2 -Bun/Cr 96/7.42 - suspected 2/2 dehydration, see plan above - repeat BMP later today Demand ischemia (elevated trop) -trending Trop, EKG sinus tach Hx CVA -Jul 2018 w/ residual def/hemiplegia Rt arm, aphasia, dysphagia Dementia -Aricept -At baseline she is normally oriented to self per family -Aware HTN -Allow for permissive HTN for 24 hrs Hx DVT -Bilateral LE DVT w/ IVC filter COPD -duonebs q6h -60 PY smoking hx Anemia -FE studies Code status: DNAR DVT ppx: IVC filter in place Diet: NPO Dispo: LOS >2 midnights
--- NOTE | 2018-10-15 06:39 | PDOC.EVN ---
Event Note - Event Note Event Note: Called to patient's bedside due to bleeding from R. Femoral CVC site. Bleeding intially controlled with pressure bag, but as soon as pressure bag was removed, bleeding continued. One single figure of 8 stictch placed around catheter with 2 -0 silk suture. No further bleeding noted. Will continue to monitor.
[2018-10-15] MEDS: Aspirin Chewable 81 MG TAB PO SCH (09:45)
[2018-10-15] MEDS: Multivitamin W/ Minerals 1 TAB PO SCH (09:45)
[2018-10-15] MEDS: Clopidogrel Bisulfate 75 MG TAB PO SCH (09:45)
[2018-10-15] MEDS: Dextrose 5% in Water 1,000 ML IV SCH ×3 (10:38→22:29)
[2018-10-15 11:49] LABS: Anion Gap 16 mmol/L (10-20); BUN (Urea Nitrogen) 94 mg/dL (9.8-20.1); Calc. Creatinine Clearance 5 mL/min (70-130); Calcium 8.3 mg/dL (7.8-10.44); Carbon Dioxide 20 mmol/L (23-31); Chloride 122 mmol/L (98-107); Estimated GFR-MDRD 6; Glucose 122 mg/dL (83-110); Potassium 4.9 mmol/L (3.5-5.1); Sodium 153 mmol/L (136-145)
--- NOTE | 2018-10-15 13:59 | MRI ---
MRI OF THE BRAIN WITHOUT CONTRAST: Date: 10/15/18 INDICATION: Concern for stroke with right-sided facial droop. COMPARISON: MRI of the brain dated 08/03/18. FINDINGS: The patient had difficulty with controlling her head movement and breathing. Motion artifact heavily limits image detail on exam. As seen on the comparison examination, there is cerebral and cerebellar atrophy with severe chronic s mall vessel white matter ischemic change. There is a remote lacunar infarct involving both cerebellar hemispheres, right greater than left. There is a remote paramedian funmilayo lacunar infarct. There is a new focus of restricted diffusion seen within the right splenium of the corpus callosum, a s well as within the subcortical white matter of the right frontal lobe, with corresponding T2 signal hyperintensity suspicious for a small subacute embolic infarct. Appropriate flow-voids are present w ithin the visualized intracranial vessels within the limitations of the exam. There is some mucosal t hickening suspected within the sphenoid sinus and ethmoid air cells. IMPRESSION: 1. Subacute appearing lacunar infarcts involving the subcortical right frontal lobe white matter, as well as the right posterior splenium of the corpus callosum. 2. Severe chronic small vessel white matter ischemic change with remote lacunar infarcts involving t he cerebellar hemispheres, left greater than right. There is also remote lacunar infarct involving th e left paramedian ufnmilayo. 3. Prominent cerebral and cerebellar atrophy. POS: C
[2018-10-15 14:55] LABS: Bilirubin Negative (Negative); Blood, Urine Large (Negative); Clarity CLOUDY (Clear); Glucose, Urine (Dipstick) Negative (Negative); Leukocyte Small (Negative); Nitrite Negative (Negative); Protein, Urine (Dipstick) 100 mg/dL (Neg-Trace); Specific Gravity, Urine 1.015 (1.002-1.036); Urobilinogen 0.2 mg/dL (0.2-1.0); pH, Urine 5.5 (5.0-9.0)
[2018-10-15 14:57] LABS: Hyaline Casts/LPF 4-6 HYALINE CAST LPF (0-3 Hyaline); Pathc Cast-AUWi Flag 1.45 (0-2.49)
[2018-10-15 14:58] LABS: Yeast-AUWi Flag 238.1 (0-25.0)
[2018-10-15 15:06] LABS: Bacteria/HPF 1+ HPF (None Seen); Renal Epithelial None Seen HPF (0-3); Transitional Epithelial NONE SEEN HPF (0-3); Yeast-All Forms None Seen HPF (None Seen)
[2018-10-15 17:45] LABS: Anion Gap 15 mmol/L (10-20); BUN (Urea Nitrogen) 94 mg/dL (9.8-20.1); Calc. Creatinine Clearance 5 mL/min (70-130); Calcium 8.6 mg/dL (7.8-10.44); Carbon Dioxide 20 mmol/L (23-31); Chloride 119 mmol/L (98-107); Estimated GFR-MDRD 7; Glucose 119 mg/dL (83-110); Potassium 4.2 mmol/L (3.5-5.1); Sodium 150 mmol/L (136-145)
[2018-10-15] MEDS: Famotidine 20 MG TAB PO SCH (20:18)
[2018-10-15] MEDS: Atorvastatin Calcium 20 MG TAB PO SCH (20:18)
[2018-10-15 21:48] LABS: Anion Gap 15 mmol/L (10-20); BUN (Urea Nitrogen) 91 mg/dL (9.8-20.1); Calc. Creatinine Clearance 5 mL/min (70-130); Calcium 8.5 mg/dL (7.8-10.44); Carbon Dioxide 21 mmol/L (23-31); Chloride 116 mmol/L (98-107); Estimated GFR-MDRD 7; Glucose 139 mg/dL (83-110); Potassium 3.9 mmol/L (3.5-5.1); Sodium 148 mmol/L (136-145)
[2018-10-15 21:52] LABS: Vancomycin, Random 9.4 ug/mL (See Comment)
[2018-10-15] MEDS ORDERED: Vancomycin HCl 500 MG in Sodium Chloride 0.9% 100 ML IVPB SCH (23:00)
[2018-10-16 05:39] LABS: #Lymphocytes 0.8 thou/uL (1.20-3.40); #Monocytes 0.6 thou/uL (0.11-0.59); %Basophils 0.1 % (0.0-1.0); %Eosinophils 0.4 % (0.0-10.0); %Lymphocytes 8.1 % (21.0-51.0); %Monocytes 5.6 % (0.0-10.0); %Neutrophils 85.9 % (42.0-75.0); Hemoglobin 9.4 g/dL (12.0-16.0); Mean Corpuscular HGB CONC 32.5 g/dL (32.0-36.0); Mean Corpuscular Hemoglobin 28.9 pg (27.0-31.0); Mean Corpuscular Volume 88.9 fL (78.0-98.0); Platelet Count 317 thou/uL (130-400); RBC Distribution Width 14.5 % (11.5-14.5); Red Blood Cell (RBC) Count 3.27 mill/uL (4.20-5.40); White Blood Cell (WBC) Count 10.4 thou/uL (4.8-10.8)
--- NOTE | 2018-10-16 06:31 | PDOC.FM ---
- Subjective Subjective: Mrs. Yuen is resting comfortably in bed, no acute distress. She is making more purposeful movements and sounds. no intelligible words - Objective Vital Signs & Weight: Vital Signs (12 hours) Temp Pulse Resp BP Pulse Ox 10/16/18 03:54 98.1 F 85 20 141/65 H 93 L 10/16/18 01:20 85 18 100 10/15/18 23:49 99.5 F 72 20 130/58 L 99 10/15/18 20:00 98.8 F 93 20 162/74 H 100 10/15/18 19:22 93 20 100 Weight Admit Weight 50.53 kg Weight 50.53 kg Most Recent Monitor Data Heart Rate from ECG 92 NIBP 144/65 Respiration from ECG 20 I&O: 10/14/18 10/15/18 10/16/18 06:59 06:59 06:59 Intake Total 2400 Output Total 100 680 Balance -100 1720 Result Diagrams: 10/16/18 04:58 10/15/18 21:15 Phys Exam - Physical Examination Constitutional: NAD HEENT: moist MMs Neck: no JVD Respiratory: clear to auscultation bilateral Cardiovascular: RRR, no significant murmur Gastrointestinal: soft, no distention Musculoskeletal: no edema, pulses present Left sided strength improved, baseline R side Skin: no rash Dx/Plan (1) HEIDI (acute kidney injury) Code(s): N17.9 - ACUTE KIDNEY FAILURE, UNSPECIFIED Status: Acute (2) Acute encephalopathy Code(s): G93.40 - ENCEPHALOPATHY, UNSPECIFIED Status: Acute (3) COPD (chronic obstructive pulmonary disease) Status: Chronic (4) History of CVA (cerebrovascular accident) Code(s): Z86.73 - PRSNL HX OF TIA (TIA), AND CEREB INFRC W/O RESID DEFICITS Status: Chronic (5) Uncontrolled hypertension Code(s): I10 - ESSENTIAL (PRIMARY) HYPERTENSION Status: Acute (6) Dementia Code(s): F03.90 - UNSPECIFIED DEMENTIA WITHOUT BEHAVIORAL DISTURBANCE Status: Chronic Qualifiers: Dementia type: Alzheimer's disease Dementia behavioral disturbance: with behavioral disturbance (7) Hypertension Code(s): I10 - ESSENTIAL (PRIMARY) HYPERTENSION Status: Chronic (8) CVA (cerebral vascular accident) Code(s): I63.9 - CEREBRAL INFARCTION, UNSPECIFIED Status: Suspected Qualifiers: Precerebral and cerebral artery: unspecified cerebral artery - Plan Plan: CVA -Subacute findings on MRI, most likely contributor to acute mental status change -Hx of CVA Jul 2018, residual right sided weakness -CT negative, EKG showed sinus tach - Echo from 07/2018 showed EF 60-65% -ASA, plavix, statin. - consult stroke team, PT/OT, neurology, appreciate recs - FLP TSH wnl CAP -CXR showed rt patchy infiltrate, Procal 1.9, LA 1.2 -Levaquin, zosyn, vanc started 10/14/2018 -blood and urine cultures pending Dehydration -Pt has not been eating as much for past few days, mucous membranes dry on admission, Hypernatremia improving at an appropriate rate - possible additional cause of AMS - D5 1/2 NS 150 ml/hr Hypernatremia -Likely 2/2 to dehydration, see plan above -154 on admission -Continue to monitor with BMPs HEIDI -baseline Cr. 1.2 -Bun/Cr 96/7.42 on admission - suspected 2/2 dehydration, see plan above - nephrology consulted, appreciate recs - creatinine improving Demand ischemia (elevated trop) -trending Trop, EKG sinus tach Hx CVA -Jul 2018 w/ residual def/hemiplegia Rt arm, aphasia, dysphagia Dementia -Aricept -At baseline she is normally oriented to self per family -Aware HTN -Allow for permissive HTN for 24 hrs Hx DVT -Bilateral LE DVT w/ IVC filter COPD -duonebs q6h -60 PY smoking hx Anemia -FE studies Code status: DNAR DVT ppx: IVC filter in place Diet: NPO Dispo: LOS >2 midnights
[2018-10-16] MEDS: Dextrose 5% in Water 1,000 ML IV SCH (07:01)
[2018-10-16 08:01] LABS: Anion Gap 20 mmol/L (10-20); BUN (Urea Nitrogen) 85 mg/dL (9.8-20.1); Calc. Creatinine Clearance 5 mL/min (70-130); Calcium 8.5 mg/dL (7.8-10.44); Carbon Dioxide 14 mmol/L (23-31); Chloride 115 mmol/L (98-107); Estimated GFR-MDRD 7; Glucose 125 mg/dL (83-110); Potassium 4.4 mmol/L (3.5-5.1); Sodium 145 mmol/L (136-145)
[2018-10-16] MEDS: Sodium Bicarbonate 50 MEQ in Dextrose 5% in Water 1,000 ML IV SCH ×3 (09:17→21:03)
[2018-10-16] MEDS: Acetaminophen 650 MG Suppository PR PRN (09:18)
--- NOTE | 2018-10-16 09:34 | CON ---
DATE OF CONSULTATION: 10/16/2018 TYPE OF CONSULTATION: NEUROLOGY CONSULTATION CONSULTING PHYSICIAN: [facility]. IMPRESSION: 1. Right lacunar infarction of no significant consequence. 2. Dementia. 3. Renal failure. 4. History of DVT. PLAN: 1. Continue aspirin and statin. 2. As per Nephrology's recommendations, address her renal failure. HISTORY OF PRESENT ILLNESS: Ms. Yuen is an 83-year-old black female with a past history of multiple medical problems. She has been in the hospital off and on for the last few months. The nursing staff reports that she has been chronically encephalopathic since her previous admission in July shown evidence of renal insufficiency, which apparently has worsened a bit. Her BUN is in the 90s and creatinine in the 7.0 range. Nephrology has been consulted. She had an MRI of the brain done on this admission, which showed punctate area of infarction in the right frontal region. She otherwise has been on IV fluids and nonresponsive to verbal stimulation. She had previous echocardiogram, which showed a 55% to 60% ejection fraction. Her vital signs have been stable. Temperature maximum was 99.7. PAST MEDICAL HISTORY: As listed above. ALLERGIES: NONE. SOCIAL HISTORY: No tobacco or alcohol use. FAMILY HISTORY: Not obtainable. REVIEW OF SYSTEMS: Not obtainable. MEDICATIONS: Medication list was reviewed. PHYSICAL EXAMINATION: GENERAL: She is a somewhat cachectic appearing elderly lady, lying in bed in a position. VITAL SIGNS: Blood pressure 165/72, temperature 99.7, respirations 20, and pulse 96. HEENT: Pupils are equal. Conjunctivae clear. Oropharynx is clear as well. NECK: Rigid. No lymphadenopathy noted. ABDOMEN: Soft. EXTREMITIES: No cyanosis, clubbing, or edema. NEUROLOGIC: She is unresponsive to verbal stimulation. She appears to be awake. She is moaning a bit with manipulation. She has flexion of upper and lower extremities with increased tone bilaterally. No abnormal movements were seen. Gait is not testable. LABORATORY DATA: Laboratory studies were reviewed and her coags show elevated PT, PTT, fibrin, and fibrin degradation products. IMAGING DATA: MRI of the brain was reviewed. There are extensive small-vessel ischemic changes bilaterally as well as the new acute lacunar infarction. SUMMARY: Overall neurologic picture, this patient is poor. 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 I agree with continuing aspirin and statin, although, prognosis appears quite poor. Job ID: [id number]
[2018-10-16 10:44] LABS: Vancomycin, Random 16.5 ug/mL (See Comment)
[2018-10-16] MEDS ORDERED: Vancomycin HCl 1 GM in Premix Bag 1 BAG IVPB SCH (10:45)
[2018-10-16] MEDS ORDERED: Vancomycin HCl 750 MG in Sodium Chloride 0.9% 250 ML 250 ML IVPB SCH ×2 (10:45→12:00)
[2018-10-16] MEDS ORDERED: Vancomycin HCl 250 MG in Sodium Chloride 0.9% 100 ML IVPB SCH (10:45)
[2018-10-16] MEDS ORDERED: Vancomycin Sliding Scale 1 EACH FS SCH (10:45)
[2018-10-16] MEDS ORDERED: HOLD VANCOMYCIN FOR LEVEL >20 FS SCH (10:45)
[2018-10-16] MEDS ORDERED: Vancomycin HCl 500 MG in Sodium Chloride 0.9% 100 ML IVPB SCH (10:45)
[2018-10-16] MEDS: Clopidogrel Bisulfate 75 MG TAB PO SCH (11:07)
[2018-10-16] MEDS: Aspirin Chewable 81 MG TAB PO SCH (11:07)
[2018-10-16] MEDS: Multivitamin W/ Minerals 1 TAB PO SCH (11:08)
[2018-10-16] MEDS: Famotidine 20 MG TAB PO SCH (20:27)
[2018-10-16] MEDS: Atorvastatin Calcium 20 MG TAB PO SCH (20:27)
--- NOTE | 2018-10-16 20:31 | PRG ---
DATE OF SERVICE: 10/16/2018 SUBJECTIVE: The patient with no new complaint, noted with following vital signs. OBJECTIVE: VITAL SIGNS: Afebrile, temperature 98.1; pulse 85; respiratory rate of 20 with blood pressure of 141/65. HEENT: Unremarkable. CARDIOVASCULAR: First and second heart sounds were heard. RESPIRATORY SYSTEM: Clear to auscultation. DIGESTIVE SYSTEM: Revealed a benign abdomen. EXTREMITIES: No peripheral edema. SKIN: No new gross rash. LYMPHATICS: No peripheral lymphadenopathy. LABORATORY INVESTIGATIONS: Significant for creatinine of 6.9, BUN of 85 with bicarb of 14, sodium of 145. IMPRESSION: 1. Hypernatremia which seems to be improving. 2. Acute on chronic kidney disease, pretty much do the same. 3. Metabolic acidosis, likely part of re-expansion acidosis. PLAN: 1. Continue free water repletion, but we will add sodium bicarbonate to this solution. 2. Renally dose all medications and continue to avoid potentially nephrotoxic agent. 3. Further management to be dependent on the clinical course. Job ID: [id number]
[2018-10-17] MEDS: Sodium Bicarbonate 50 MEQ in Dextrose 5% in Water 1,000 ML IV SCH ×2 (01:05→09:50)
--- NOTE | 2018-10-17 06:27 | PDOC.FM ---
- Subjective Subjective: Ms. Yuen is resting comfortably in bed, some intelligible words, purposeful movement. AOx0 - Objective Vital Signs & Weight: Vital Signs (12 hours) Temp Pulse Resp BP BP Pulse Ox 10/17/18 03:05 99.7 F H 88 18 173/104 H 96 10/17/18 00:25 99 18 98 10/16/18 23:19 97.9 F 99 16 149/64 H 95 10/16/18 19:54 97.5 F L 96 18 141/73 H 98 10/16/18 19:08 93 20 100 Weight Admit Weight 50.53 kg Weight 50.53 kg Most Recent Monitor Data Heart Rate from ECG 92 NIBP 144/65 Respiration from ECG 20 I&O: 10/15/18 10/16/18 10/17/18 06:59 06:59 06:59 Intake Total 2400 1800 Output Total 100 680 375 Balance -100 1720 1425 Result Diagrams: 10/17/18 06:00 10/17/18 06:00 Phys Exam - Physical Examination Constitutional: NAD HEENT: moist MMs Neck: no nodes Respiratory: clear to auscultation bilateral Cardiovascular: RRR, no significant murmur Gastrointestinal: soft, non-tender, no distention Musculoskeletal: no edema, pulses present baseline hemiparesis Skin: no rash Dx/Plan (1) HEIDI (acute kidney injury) Code(s): N17.9 - ACUTE KIDNEY FAILURE, UNSPECIFIED Status: Acute (2) Acute encephalopathy Code(s): G93.40 - ENCEPHALOPATHY, UNSPECIFIED Status: Acute (3) COPD (chronic obstructive pulmonary disease) Status: Chronic (4) History of CVA (cerebrovascular accident) Code(s): Z86.73 - PRSNL HX OF TIA (TIA), AND CEREB INFRC W/O RESID DEFICITS Status: Chronic (5) Uncontrolled hypertension Code(s): I10 - ESSENTIAL (PRIMARY) HYPERTENSION Status: Acute (6) Dementia Code(s): F03.90 - UNSPECIFIED DEMENTIA WITHOUT BEHAVIORAL DISTURBANCE Status: Chronic Qualifiers: Dementia type: Alzheimer's disease Dementia behavioral disturbance: with behavioral disturbance (7) Hypertension Code(s): I10 - ESSENTIAL (PRIMARY) HYPERTENSION Status: Chronic (8) CVA (cerebral vascular accident) Code(s): I63.9 - CEREBRAL INFARCTION, UNSPECIFIED Status: Suspected Qualifiers: Precerebral and cerebral artery: unspecified cerebral artery - Plan Plan: CVA -Subacute findings on MRI,unlikely contributor acute mental status change -Hx of CVA Jul 2018, residual right sided weakness -CT negative, EKG showed sinus tach - Echo from 07/2018 showed EF 60-65% -ASA, plavix, statin. - consult stroke team, PT/OT, neurology, appreciate recs - FLP TSH wnl CAP -CXR showed rt patchy infiltrate, Procal 1.9, LA 1.2 -Levaquin, zosyn, vanc started 10/14/2018 -blood and urine cultures NGTD Dehydration -Pt has not been eating as much for past few days, mucous membranes dry on admission, Hypernatremia improving at an appropriate rate - possible additional cause of AMS - D5 1/2 NS 150 ml/hr, transition to LR 150ml/hr and slow rate as appropriate Hypernatremia, resolved -Likely 2/2 to dehydration, see plan above -154 on admission -Continue to monitor with BMPs HEIDI -baseline Cr. 1.2 -Bun/Cr 96/7.42 on admission - suspected 2/2 dehydration, see plan above - nephrology consulted, appreciate recs - creatinine improving Demand ischemia (elevated trop) -trending Trop, EKG sinus tach Hx CVA -Jul 2018 w/ residual def/hemiplegia Rt arm, aphasia, dysphagia - ST to asses for diet Dementia -Aricept -At baseline she is normally oriented to self per family -Aware HTN -resume home meds when tolerating PO Hx DVT -Bilateral LE DVT w/ IVC filter COPD -duonebs q6h -60 PY smoking hx Anemia -FE studies Code status: DNAR DVT ppx: IVC filter in place Diet: NPO Dispo: LOS >2 midnights
[2018-10-17 06:29] LABS: Anion Gap 15 mmol/L (10-20); BUN (Urea Nitrogen) 77 mg/dL (9.8-20.1); Calc. Creatinine Clearance 5 mL/min (70-130); Calcium 8.2 mg/dL (7.8-10.44); Carbon Dioxide 22 mmol/L (23-31); Chloride 104 mmol/L (98-107); Estimated GFR-MDRD 7; Glucose 109 mg/dL (83-110); Potassium 3.4 mmol/L (3.5-5.1); Sodium 138 mmol/L (136-145)
[2018-10-17 07:53] LABS: Band 3 % (5-11); Hemoglobin 8.6 g/dL (12.0-16.0); Hypochromia SLIGHT = 6-15 cells (100X) (0-5/hpf); Lymphocytes 6 % (21-51); MDiff Complete? YES; Mean Corpuscular HGB CONC 31.4 g/dL (32.0-36.0); Mean Corpuscular Hemoglobin 27.2 pg (27.0-31.0); Mean Corpuscular Volume 86.7 fL (78.0-98.0); Mean Platelet Volume 7.6 fL (7.4-10.4); Monocytes 5 % (0-10); Neutrophil 86 % (42-75); Platelet Count 347 thou/uL (130-400); Platelet Morphology Comment Appears Adequate; Polychromasia SLIGHT = 2-3 cells (100X) (0-2/hpf); RBC Distribution Width 14.7 % (11.5-14.5); Red Blood Cell (RBC) Count 3.16 mill/uL (4.20-5.40); White Blood Cell (WBC) Count 9.2 thou/uL (4.8-10.8)
--- NOTE | 2018-10-17 08:30 | HP ---
ADDENDUM: Addendum to the history and physical on the patient, Melissa Yuen and an addendum to the progress note on her as well from today. Please see the history and physical done by Dr. Estes, last night and then the progress note by Dr. Flower, which I concur. The patient was seen, evaluated, and discussed with the residents. HISTORY OF PRESENT ILLNESS: An 83-year-old halfway patient, who a few months ago had a CVA, which left her with hemiplegia on the right side and aphasia, dysphagia, some longstanding dementia anyway. Came in with a change in mental status over a few hours yesterday and when she came into the hospital, found to have a right-sided pneumonia as well as hypernatremia with a sodium extremely high at 156. Overnight, it was noted that the central line was placed in the right femoral area kept oozing excessively, eventually needed a couple of [id number] stitches. So, DIC panel was done, which showed some changes, but platelets have been okay. But, she does seem to be pretty poor off with a high white count and acute renal failure, where creatinine for the first time that we can tell based on computer is extremely elevated. Her blood count dropped last night became anemic as well. With creatinine 7.5, that seems to be a new issue for her and again the high sodium of 156, which again seems to be a fairly new issue for her. PAST MEDICAL HISTORY: All per the residents history and physical, for which I agree. HOME MEDICATIONS: All per the residents history and physical, for which I agree. PAST SURGICAL HISTORY: All per the residents history and physical, for which I agree. SOCIAL HISTORY: All per the residents history and physical, for which I agree. REVIEW OF SYSTEMS: All per the residents history and physical, for which I agree. PHYSICAL EXAMINATION: GENERAL: On exam, seems alert, sitting upright, does not appear to be any respiratory distress. Aphasic so is unable answer any questions. HEENT: I see major drooping on the right side of the face. Conjunctivae not pale. Slightly dry. CHEST: Decreased breath sounds. HEART: Regular rate and rhythm. ABDOMEN: Benign, soft, and nontender. EXTREMITIES: Showed no edema. LABORATORY DATA: Significant for slightly elevated white count. Hemoglobin initially was 8.2 was then dropped overnight. BUN 97, creatinine 7.6, and sodium is 156. Chest x-ray, right-sided pneumonia. ASSESSMENT: 1. Altered mental status, likely from infection. 2. Hypernatremia, likely from infection and volume depletion. 3. Healthcare associated pneumonia. Can have her on vancomycin, Levaquin, and Zosyn at renal dosing. 4. Mild elevation in troponin. History of coronary artery disease. 5. Dehydration. 6. History of recent cerebrovascular accident, unclear if that has worsened. We have a new problem with the change in mental status. PLAN: So, we will put her on antibiotics prior to get an MRI today and did warn family that certainly grim prognosis with extremely elevated creatinine. In the meantime, we will put her on D5 water because half-normal saline did not change the sodium at all. We will follow sodium closely to make sure we were not dropping it to precipitously and causing issues from that standpoint. The patient is do not resuscitate and I did speak with her , who understands the grim prognosis in her. Job ID: [id number]
--- NOTE | 2018-10-17 09:06 | CON ---
DATE OF CONSULTATION: CONSULTING PHYSICIAN: Lake Coburn MD REQUESTING PHYSICIAN: [facility]. REASON FOR CONSULTATION: Acute on chronic kidney disease. IMPRESSION: 1. Acute on chronic kidney disease. This is likely a prolonged prerenal state that has progressed to the point of acute tubular necrosis due to intravascular depletion. 2. Mental status change. This is likely of multifactorial etiology, including but not limited to severe hypernatremia, severe dehydration, possible infection, and past history of cerebrovascular accident. 3. Anemia. 4. Metabolic acidosis. 5. Hypernatremia in the context of free water deficit. HISTORY OF PRESENT ILLNESS: History is that of 83-year-old female patient who recently had CVA and was discharged from here about a month and a half ago to a custodial. Patient has been on thickened nectar and was brought back here with mental status change. I could not get any history from this patient. In any case, on clinical evaluation, patient was noted with a sodium of 156, BUN of 95 with a creatinine of 7.5. Patient's baseline creatinine is about 1.3. As a result of these findings, decision was taken to involve Renal in the management of this case. PAST MEDICAL HISTORY SIGNIFICANT FOR: Significant for recent history of CVA, dementia, hypertension, DVT, COPD, and status post IVC filter placement. SOCIAL HISTORY: Nonsignificant related to present illness. Patient has a 60-btbr-hsvg smoking history. MEDICATIONS: Reviewed and as documented on [employer]. REVIEW OF SYSTEMS: Could not be obtained from this patient who does not communicate. LABORATORY INVESTIGATION: Significant for sodium 156 on presentation, BUN of 95, and a creatinine of 7.5. PHYSICAL EXAMINATION: GENERAL: Patient was found to be ill looking, noted with the following vital signs. VITAL SIGNS: Afebrile, temperature 98.8; pulse 98; respiratory rate of 20; O2 sat of 100% with blood pressure of 160/74. HEENT: Unremarkable. Dry oral mucosa. NECK: Supple. No conjunctival injection or icterus. CARDIOVASCULAR SYSTEM: Positive heart sounds were heard. RESPIRATORY SYSTEM: Clear to auscultation. DIGESTIVE SYSTEM: Revealed a benign abdomen with positive bowel sounds. EXTREMITIES: No peripheral edema. SUMMARY: An 83-year-old female patient from custodial, presented to the ER with reported mental status change, noted to be severely hypernatremic and with evidence of profound azotemia. Patient will benefit from aggressive free water repletion. I would, therefore, strongly recommend to continue with a close monitoring of the patient's sodium level as the patient is currently on . Job ID: [id number]
[2018-10-17] MEDS: Aspirin 300 MG Suppository PR SCH (09:13)
[2018-10-17] MEDS: Clopidogrel Bisulfate 75 MG TAB PO SCH (09:18)
[2018-10-17] MEDS: Multivitamin W/ Minerals 1 TAB PO SCH (09:18)
--- NOTE | 2018-10-17 10:48 | PRG ---
DATE OF SERVICE: 10/16/2018 ADDENDUM: Please see the note from Dr. Flower, for which I agree. The patient is seen and evaluated, and discussed with the residents at the bedside. The patient today does seem more alert and is talking a little bit more compared to yesterday. Her sodium level has come down to 148. Unfortunately, creatinine is only improved to 7, so that is still slow to improve. We are awaiting swallowing study to figure out if she is safe to eat. MRI came back showing some subacute new changes from July, but it is unclear if these actually represent an acute stroke as they seem not to. So we are still treating this pneumonia and she is coughing a little bit more today and did have some rhonchi and rales on that right side. Still with vancomycin, Levaquin, and Zosyn. She is on her other home medicines and get renal involved just to get their opinion as well, although certainly not a candidate for dialysis. She is also status post couple units of blood, which has helped quite a bit as well. Dr. Dempsey saw the patient as well and he may have felt maybe this is a new lacunar infarct and basically continue same management. Job ID: [id number]
[2018-10-17] MEDS ORDERED: Potassium Chloride 20 MEQ in Lactated Ringer's 1,000 ML IV SCH (11:45)
[2018-10-17] MEDS ORDERED: Vancomycin HCl 750 MG in Sodium Chloride 0.9% 250 ML 250 ML IVPB SCH (12:00)
[2018-10-17] MEDS: Lactated Ringer's 1,000 ML IV SCH ×2 (13:00→21:41)
[2018-10-17 13:36] LABS: Vancomycin, Random 21.7 ug/mL (See Comment)
--- NOTE | 2018-10-17 13:43 | PQF ---
DATE: 10-17-18 ATTN: NICK GARCIA Please exercise your independent, professional judgment in responding to the clarification form. Clinical indicators are provided on the bottom of this form for your review Please check appropriate box(s): [ x] Encephalopathy: Type: [ x] Acute [ ] Subacute [ ] Chronic Etiology: [ ] Hypertensive [ x] Metabolic [ ] Toxic [ ] Septic [ ] Other (please specify) [ ] Transient Alteration of Awareness [ ] Other diagnosis [ ] Unable to determine In addition, please specify: Present on Admission (POA): [ x] Yes [ ] No [ ] Unable to determine For continuity of documentation, please document condition throughout progress notes and discharge summary. Thank You. CLINICAL INDICATORS - SIGNS / SYMPTOMS / LABS ER DX: ACUTE RENAL FAILURE, AMS, ELEVATED TROPONIN, R PNEUMONIA, SEPSIS H&P: ACUTE ENCEPHALOPATHY R/O CVA, METABOLIC VS CVA VS INFECTIOUS CAUSE VS OTHER PN DR. GARCIA 10-17-18: ACUTE ENCEPHALOPATHY, HYPERNATREMIA, HEIDI RISK FACTORS: PN DR. GARCIA 10-16-18: HEIDI, HX OF CVA, ACUTE UNCONTROLLED HTN, DEHYDRATION ER DX: ACUTE RENAL FAILURE, AMS, ELEVATED TROPONIN, R PNEUMONIA, SEPSIS TREATMENTS: NEUROLOGIST 10-16-[address] GARCIA 10-17-18: CONTINUE TO MONITOR WITH BMP'S MAR: SODIUM BICARBONATE IN DEXTROSE (This form is maintained as a part of the permanent medical record) 2014 [employer] All Rights Reserved SONIDO [email or web address] Office: [phone] [facility]
--- NOTE | 2018-10-17 14:05 | PQF ---
DATE: 10-17-18 ATTN: DR. NICK GARCIA Please exercise your independent, professional judgment in responding to the clarification form. Clinical indicators are provided on the bottom of this form for your review Please check appropriate box(s) to clarify if the following diagnosis has been ruled in or ruled out: SEPSIS [ ] Ruled in diagnosis [ x] Continue to treat [ ] Resolved [ ] Ruled out diagnosis [ ] Other diagnosis [ ] Unable to determine In addition, please specify: Present on Admission (POA): [ x] Yes [ ] No [ ] Unable to determine For continuity of documentation, please document condition throughout progress notes and discharge summary. Thank You. CLINICAL INDICATORS - SIGNS / SYMPTOMS / LABS ER DX: ACUTE RENAL FAILURE, AMS, ELEVATED TROPONIN, R PNEUMONIA, SEPSIS WBC: 10-14-18: 11.3 10-15-18: 16.3 RR: ER: 24 PULSE: ER: 102, 99, 99, 100 RISK FACTORS: ER DX: ACUTE RENAL FAILURE, AMS, ELEVATED TROPONIN, R PNEUMONIA, SEPSIS H&P: ACUTE ENCEPHALOPATHY, HYPERNATREMIA, HEIDI, DEMAND ISCHEMIA, DEHYDRATION, COPD TREATMENTS: ER: LEVAQUIN IV, VANCOMYCIN IV, IVF NS, ZOSYN IV (This form is maintained as a part of the permanent medical record) 2014 [employer] All Rights Reserved SONIDO [email or web address] Office: [phone] [facility]
--- NOTE | 2018-10-17 14:37 | PRG ---
DATE OF SERVICE: 10/17/2018 ADDENDUM: This is an addendum to the note of Dr. Markos Flower. Ms. Yuen is an 83-year-old female patient who is admitted with altered mental status. She is also DNR and is not really a good candidate for any aggressive management. Her MRI of the brain did show some subacute lacunar infarcts, unrelated likely to her current mental changes. She also has a history of dementia. We will continue comfort care. Job ID: [id number]
--- NOTE | 2018-10-17 18:28 | PRG ---
DATE OF SERVICE: 10/17/2018 OBJECTIVE: The patient was seen and examined, noted with the following; VITAL SIGNS: T-maximum of 100, pulse of 98, respiratory rate of 20, O2 saturation 99% with a blood pressure of 147/65. HEENT: Examination unremarkable. CARDIOVASCULAR: First and second heart sounds were heard. RESPIRATORY: Clear to auscultation. DIGESTIVE: Revealed a benign abdomen. EXTREMITIES: No peripheral edema. LABORATORY DATA: Laboratory investigation showed a creatinine has gone down to 6.44, potassium 3.4. IMPRESSION: 1. Acute kidney injury in the context of prolonged prerenal state that has progressed to the point of acute tubular necrosis. 2. Metabolic acidosis, much improved. 3. Hypokalemia, partly due to correction of the metabolic acidosis with . PLAN: 1. Replete potassium. 2. Continue renal supportive measures. 3. The patient's nutrition needs to be addressed. 4. Further management to be dependent on the clinical course. Job ID: [id number]
[2018-10-17] MEDS: Atorvastatin Calcium 20 MG TAB PO SCH (19:55)
[2018-10-17] MEDS: Famotidine 20 MG TAB PO SCH (19:55)
[2018-10-18 06:10] LABS: #Eosinphils 0.1 thou/uL (0.0-0.7); #Lymphocytes 0.5 thou/uL (1.20-3.40); #Monocytes 0.7 thou/uL (0.11-0.59); #Neutrophils 9.2 thou/uL (1.40-6.50); %Basophils 0.1 % (0.0-1.0); %Eosinophils 0.5 % (0.0-10.0); %Lymphocytes 4.9 % (21.0-51.0); %Monocytes 6.6 % (0.0-10.0); %Neutrophils 87.9 % (42.0-75.0); Hemoglobin 8.9 g/dL (12.0-16.0); Mean Corpuscular HGB CONC 32.6 g/dL (32.0-36.0); Mean Corpuscular Hemoglobin 28.5 pg (27.0-31.0); Mean Corpuscular Volume 87.5 fL (78.0-98.0); Mean Platelet Volume 7.7 fL (7.4-10.4); Platelet Count 309 thou/uL (130-400); Red Blood Cell (RBC) Count 3.11 mill/uL (4.20-5.40); White Blood Cell (WBC) Count 10.5 thou/uL (4.8-10.8)
[2018-10-18 06:27] LABS: Anion Gap 16 mmol/L (10-20); BUN (Urea Nitrogen) 69 mg/dL (9.8-20.1); Calc. Creatinine Clearance 5 mL/min (70-130); Calcium 8.2 mg/dL (7.8-10.44); Carbon Dioxide 22 mmol/L (23-31); Chloride 107 mmol/L (98-107); Estimated GFR-MDRD 8; Glucose 71 mg/dL (83-110); Potassium 4.2 mmol/L (3.5-5.1); Sodium 141 mmol/L (136-145)
--- NOTE | 2018-10-18 06:48 | PDOC.FM ---
- Subjective Subjective: Mrs. Yuen is resting in bed, her reports she is close to baseline. red urine reported overnight. - Objective Vital Signs & Weight: Vital Signs (12 hours) Temp Pulse Resp BP Pulse Ox 10/18/18 04:00 99.5 F 103 H 19 172/81 H 100 10/18/18 00:59 97 10/18/18 00:00 99.3 F 101 H 20 150/67 H 96 10/17/18 20:00 100.3 F H 95 19 160/68 H 100 10/17/18 19:20 97 10/17/18 19:19 97 Weight Admit Weight 50.53 kg Weight 50.53 kg Most Recent Monitor Data Heart Rate from ECG 92 NIBP 144/65 Respiration from ECG 20 I&O: 10/16/18 10/17/18 10/18/18 06:59 06:59 06:59 Intake Total 2400 3525 1375 Output Total 680 1025 1425 Balance 1720 2500 -50 Result Diagrams: 10/18/18 05:51 10/18/18 05:51 Phys Exam - Physical Examination Constitutional: NAD HEENT: moist MMs Neck: no JVD Respiratory: wheezing present Cardiovascular: no significant murmur Gastrointestinal: soft, no distention groaning with exam Musculoskeletal: no edema baseline deficets Skin: no rash Dx/Plan (1) HEIDI (acute kidney injury) Code(s): N17.9 - ACUTE KIDNEY FAILURE, UNSPECIFIED Status: Acute (2) Acute encephalopathy Code(s): G93.40 - ENCEPHALOPATHY, UNSPECIFIED Status: Acute (3) COPD (chronic obstructive pulmonary disease) Status: Chronic (4) History of CVA (cerebrovascular accident) Code(s): Z86.73 - PRSNL HX OF TIA (TIA), AND CEREB INFRC W/O RESID DEFICITS Status: Chronic (5) Uncontrolled hypertension Code(s): I10 - ESSENTIAL (PRIMARY) HYPERTENSION Status: Acute (6) Dementia Code(s): F03.90 - UNSPECIFIED DEMENTIA WITHOUT BEHAVIORAL DISTURBANCE Status: Chronic Qualifiers: Dementia type: Alzheimer's disease Dementia behavioral disturbance: with behavioral disturbance (7) Hypertension Code(s): I10 - ESSENTIAL (PRIMARY) HYPERTENSION Status: Chronic (8) CVA (cerebral vascular accident) Code(s): I63.9 - CEREBRAL INFARCTION, UNSPECIFIED Status: Suspected Qualifiers: Precerebral and cerebral artery: unspecified cerebral artery - Plan Plan: CVA -Subacute findings on MRI,unlikely contributor acute mental status change -Hx of CVA Jul 2018, residual right sided weakness -CT negative, EKG showed sinus tach - Echo from 07/2018 showed EF 60-65% -ASA, plavix, statin. - consult stroke team, PT/OT, neurology, appreciate recs - ST recs [facility] diet with aspirate risk, present at prior facility. family consents CAP -CXR showed rt patchy infiltrate, Procal 1.9, LA 1.2 -Levaquin, zosyn, vanc started 10/14/2018, transition to PO abx today -blood and urine cultures NGTD Dehydration, resolved -Pt has not been eating as much for past few days, mucous membranes dry on admission, Hypernatremia improving at an appropriate rate - possible additional cause of AMS - LR 100ml/hr Hypernatremia, resolved -Likely 2/2 to dehydration, see plan above -154 on admission -Continue to monitor with BMPs HEIDI -baseline Cr. 1.2 -Bun/Cr 96/7.42 on admission - suspected 2/2 dehydration, see plan above - nephrology consulted, appreciate recs - creatinine improving - poss hematuria, UA pending Demand ischemia (elevated trop) -trending Trop, EKG sinus tach Hx CVA -Jul 2018 w/ residual def/hemiplegia Rt arm, aphasia, dysphagia - ST to asses for diet Dementia -Aricept -At baseline she is normally oriented to self per family -Aware HTN -resume home meds when tolerating PO Hx DVT -Bilateral LE DVT w/ IVC filter COPD -duonebs q6h -60 PY smoking hx Anemia -FE studies Code status: DNAR DVT ppx: IVC filter in place Diet: NPO Dispo: LOS >2 midnights
[2018-10-18] MEDS: Lactated Ringer's 1,000 ML IV SCH ×2 (09:02→18:54)
[2018-10-18] MEDS: Aspirin 300 MG Suppository PR SCH (10:31)
[2018-10-18] MEDS: Clopidogrel Bisulfate 75 MG TAB PO SCH (10:31)
[2018-10-18] MEDS: Multivitamin W/ Minerals 1 TAB PO SCH (10:32)
[2018-10-18 12:30] LABS: Bilirubin Negative (Negative); Blood, Urine Large (Negative); Clarity CLEAR (Clear); Glucose, Urine (Dipstick) Negative (Negative); Leukocyte Trace (Negative); Nitrite Negative (Negative); Protein, Urine (Dipstick) 30 mg/dL (Neg-Trace); pH, Urine 7.5 (5.0-9.0)
[2018-10-18 12:32] LABS: Bacteria/HPF None Seen HPF (None Seen); Hyaline Casts/LPF 0-3 HYALINE CAST LPF (0-3 Hyaline); Pathc Cast-AUWi Flag 0.43 (0-2.49); RBC/HPF GREATER THAN 50-TNTC HPF (0-3); Squamous Epithelial 0-3 HPF (0-3)
--- NOTE | 2018-10-18 12:41 | PRG ---
DATE OF SERVICE: 10/18/2018 Ms. Yuen is eating her lunch, in no distress. According to the family, she is back to her mental baseline. Unfortunately, her creatinine has only dropped to 6.25 and I really feel that she has permanent HEIDI that will result in an elevation of her creatinine. We will therefore discharge her back to her alf. The family understands the very poor prognosis of her CKD. Job ID: [id number]
[2018-10-18 12:51] LABS: Vancomycin, Trough 17.6 ug/mL
[2018-10-18] MEDS: Famotidine 20 MG TAB PO SCH (20:46)
[2018-10-18] MEDS: Doxycycline 100 MG CAP PO SCH (20:46)
[2018-10-18] MEDS: Atorvastatin Calcium 20 MG TAB PO SCH (20:46)
--- NOTE | 2018-10-18 23:36 | PRG ---
DATE OF SERVICE: SUBJECTIVE: Patient is seen and examined with no new complaint noted. OBJECTIVE: VITAL SIGNS: Afebrile, temperature 99.5; pulse 103; respiratory rate of 19; blood pressure 172/81; and O2 saturation 100%. HEENT EXAMINATION: Unremarkable. CARDIOVASCULAR SYSTEM: Positive sounds were heard. RESPIRATORY SYSTEM: Clear to auscultation. DIGESTIVE SYSTEM: Revealed a benign abdomen. EXTREMITIES: No peripheral edema. LABORATORY INVESTIGATION: Showed a creatinine of 6.25 with BUN of 69 and bicarb of 22. Hemoglobin 8.9. IMPRESSION: 1. Acute on chronic kidney disease, which seems to be showing marginal improvement. 2. Mental status change in the context of baseline dementia exacerbated by electrolyte abnormalities, in this case hyponatremia due to free water deficit. The advanced renal failure not . 3. History of cerebrovascular accident. 4. Dementia. 5. Hypertension with tachyarrhythmic state. PLAN: 1. Continue renal supportive measures. Patient is not a great candidate for renal replacement therapy (hemodialysis), but hopefully renal function will improve back to close to the patient's baseline. 2. Nutrition is very important in this patient. 3. Further management will be dependent on the clinical course. Job ID: [id number]
[2018-10-19] MEDS: Lactated Ringer's 1,000 ML IV SCH ×2 (04:23→16:26)
[2018-10-19 05:22] LABS: #Eosinphils 0.1 thou/uL (0.0-0.7); #Lymphocytes 0.5 thou/uL (1.20-3.40); #Monocytes 0.6 thou/uL (0.11-0.59); #Neutrophils 11.5 thou/uL (1.40-6.50); %Basophils 0.1 % (0.0-1.0); %Eosinophils 0.8 % (0.0-10.0); %Lymphocytes 3.8 % (21.0-51.0); %Neutrophils 90.2 % (42.0-75.0); Hemoglobin 8.1 g/dL (12.0-16.0); Mean Corpuscular HGB CONC 32.3 g/dL (32.0-36.0); Mean Corpuscular Hemoglobin 28.3 pg (27.0-31.0); Mean Corpuscular Volume 87.8 fL (78.0-98.0); Mean Platelet Volume 7.6 fL (7.4-10.4); Platelet Count 313 thou/uL (130-400); RBC Distribution Width 15.4 % (11.5-14.5); Red Blood Cell (RBC) Count 2.84 mill/uL (4.20-5.40); White Blood Cell (WBC) Count 12.8 thou/uL (4.8-10.8)
[2018-10-19 05:38] LABS: Anion Gap 17 mmol/L (10-20); BUN (Urea Nitrogen) 61 mg/dL (9.8-20.1); Calc. Creatinine Clearance 6 mL/min (70-130); Calcium 8.1 mg/dL (7.8-10.44); Carbon Dioxide 21 mmol/L (23-31); Chloride 108 mmol/L (98-107); Estimated GFR-MDRD 8; Glucose 70 mg/dL (83-110); Potassium 3.9 mmol/L (3.5-5.1); Sodium 142 mmol/L (136-145)
--- NOTE | 2018-10-19 06:26 | PDOC.FM ---
- Subjective Subjective: Ms. Yuen is resting comfortably in bed, no acute events overnight. reports close to baseline - Objective Vital Signs & Weight: Vital Signs (12 hours) Temp Pulse Resp BP Pulse Ox 10/19/18 04:00 99.2 F 108 H 19 180/77 H 100 10/19/18 00:17 85 20 100 10/19/18 00:00 99.1 F 102 H 19 179/80 H 100 10/18/18 20:00 98.6 F 108 H 19 167/74 H 97 Weight Admit Weight 50.53 kg Weight 50.53 kg Most Recent Monitor Data Heart Rate from ECG 92 NIBP 144/65 Respiration from ECG 20 I&O: 10/17/18 10/18/18 10/19/18 06:59 06:59 06:59 Intake Total 3525 1375 941 Output Total 1025 1425 440 Balance 2500 -50 501 Result Diagrams: 10/19/18 04:48 10/19/18 04:48 Phys Exam - Physical Examination Constitutional: NAD HEENT: moist MMs Respiratory: clear to auscultation bilateral Cardiovascular: RRR, no significant murmur Gastrointestinal: soft, non-tender, no distention Musculoskeletal: no edema baseline weakness Skin: no rash Dx/Plan (1) HEIDI (acute kidney injury) Code(s): N17.9 - ACUTE KIDNEY FAILURE, UNSPECIFIED Status: Acute (2) Acute encephalopathy Code(s): G93.40 - ENCEPHALOPATHY, UNSPECIFIED Status: Acute (3) COPD (chronic obstructive pulmonary disease) Status: Chronic (4) History of CVA (cerebrovascular accident) Code(s): Z86.73 - PRSNL HX OF TIA (TIA), AND CEREB INFRC W/O RESID DEFICITS Status: Chronic (5) Uncontrolled hypertension Code(s): I10 - ESSENTIAL (PRIMARY) HYPERTENSION Status: Acute (6) Dementia Code(s): F03.90 - UNSPECIFIED DEMENTIA WITHOUT BEHAVIORAL DISTURBANCE Status: Chronic Qualifiers: Dementia type: Alzheimer's disease Dementia behavioral disturbance: with behavioral disturbance (7) Hypertension Code(s): I10 - ESSENTIAL (PRIMARY) HYPERTENSION Status: Chronic (8) CVA (cerebral vascular accident) Code(s): I63.9 - CEREBRAL INFARCTION, UNSPECIFIED Status: Suspected Qualifiers: Precerebral and cerebral artery: unspecified cerebral artery - Plan Plan: CVA -Subacute findings on MRI,unlikely contributor acute mental status change -Hx of CVA Jul 2018, residual right sided weakness -CT negative, EKG showed sinus tach - Echo from 07/2018 showed EF 60-65% -ASA, plavix, statin. - consult stroke team, PT/OT, neurology, appreciate recs - ST recs [facility] diet with aspirate risk, present at prior facility. family consents CAP -CXR showed rt patchy infiltrate, Procal 1.9, LA 1.2 -Levaquin, zosyn, vanc started 10/14-10/18. -transitioned to PO doxycycline -blood and urine cultures NGTD Dehydration, resolved -Pt has not been eating as much for past few days, mucous membranes dry on admission, Hypernatremia improving at an appropriate rate - possible additional cause of AMS - LR 100ml/hr Hypernatremia, resolved -Likely 2/2 to dehydration, see plan above -154 on admission -Continue to monitor with BMPs HEIDI -baseline Cr. 1.2 -Bun/Cr 96/7.42 on admission - suspected 2/2 dehydration, see plan above - nephrology consulted, appreciate recs - creatinine improving - poss hematuria, UA pending Demand ischemia (elevated trop) -trending Trop, EKG sinus tach Hx CVA -Jul 2018 w/ residual def/hemiplegia Rt arm, aphasia, dysphagia - ST to asses for diet Dementia -Aricept -At baseline she is normally oriented to self per family -Aware HTN -resume home meds when tolerating PO Hx DVT -Bilateral LE DVT w/ IVC filter COPD -duonebs q6h -60 PY smoking hx Anemia -FE studies Code status: DNAR DVT ppx: IVC filter in place Diet: NPO Dispo: LOS >2 midnights
[2018-10-19] MEDS ORDERED: cloNIDine 0.2mg/24 Hour PATCH TD SCH (09:00)
[2018-10-19] MEDS ORDERED: Metoprolol Tartrate 25 MG TAB PO SCH (09:00)
[2018-10-19] MEDS ORDERED: Dextrose 50% Abboject 50 ML SYRINGE SLOW IVP SCH (09:00)
[2018-10-19] MEDS: Multivitamin W/ Minerals 1 TAB PO SCH (10:41)
[2018-10-19] MEDS: Doxycycline 100 MG CAP PO SCH ×2 (10:42→21:04)
[2018-10-19] MEDS: Donepezil HCl 5 MG TAB PO SCH ×2 (10:42→21:04)
[2018-10-19] MEDS: Clopidogrel Bisulfate 75 MG TAB PO SCH (10:43)
[2018-10-19] MEDS: Amlodipine 10 MG TAB PO SCH (10:43)
--- NOTE | 2018-10-19 12:12 | PRG ---
DATE OF SERVICE: 10/19/2018 Ms. Yuen is sitting up in bed, being given nourishment. She appears to be in no acute distress. She is also being followed by the Renal service and they agree that we should continue supportive measures as she is making very, very gradual improvement in her renal functions. Laboratory data this morning, her creatinine is 5.86 down from a high of 7.13 upon admission and 6.25 yesterday. We are continuing judicious fluids and renal support as well as nourishment support. We are awaiting placement in [facility]. Job ID: [id number]
[2018-10-19] MEDS: Aspirin 300 MG Suppository PR SCH (16:32)
[2018-10-19] MEDS: Acetaminophen 650 MG Suppository PR PRN (17:51)
--- NOTE | 2018-10-19 19:55 | PRG ---
DATE OF SERVICE: 10/19/2018 SUBJECTIVE: The patient was seen and examined, seems to be much more alert, noted with the following vital signs. OBJECTIVE: VITAL SIGNS: Afebrile. Blood pressure 183/86 to 140/64, pulse 101, respiratory rate of 20, O2 saturations are 97%. HEENT: Unremarkable. CARDIOVASCULAR SYSTEM: First and second heart sounds were heard. RESPIRATORY SYSTEM: Clear to auscultation. RESPIRATORY SYSTEM: Some audible wheeze. DIGESTIVE SYSTEM: Benign abdomen. EXTREMITIES: No peripheral edema. SKIN: No new gross rash. LYMPHATICS: No peripheral lymphadenopathy. LABORATORY INVESTIGATION: Creatinine of 5.85, sodium of 142. IMPRESSION: 1. Acute kidney injury in the context of prolonged prerenal state as evolving to acute tubular necrosis, seems to be improving. 2. Incipient pulmonary congestion. 3. Hypernatremia, resolved. PLAN: 1. Discontinue IV fluids. 2. Given the elevated blood pressure with tachyarrhythmia, we will recommend increasing the beta abel. 3. Monitor the respiratory status closely. 4. Further management to be dependent on the clinical course. Job ID: [id number]
[2018-10-19] MEDS: Atorvastatin Calcium 20 MG TAB PO SCH (21:04)
[2018-10-19] MEDS: Famotidine 20 MG TAB PO SCH (21:04)
[2018-10-19] MEDS: Metoprolol Tartrate 25 MG TAB PO SCH (21:04)
[2018-10-20] MEDS: Lactated Ringer's 1,000 ML IV SCH ×2 (00:01→11:21)
--- NOTE | 2018-10-20 06:28 | PDOC.FM ---
- Subjective Subjective: Mrs. Yuen is resting in bed, complaining of abdominal pain. She has not had a BM in a few days - Objective Vital Signs & Weight: Vital Signs (12 hours) Temp Pulse Resp BP Pulse Ox 10/20/18 06:22 98 10/20/18 06:20 80 20 98 10/20/18 03:58 171/77 H 10/20/18 03:24 98.7 F 92 18 186/80 H 100 10/19/18 23:14 98.3 F 88 20 173/76 H 99 10/19/18 20:00 94 L 10/19/18 19:49 109 H 20 94 L 10/19/18 19:32 99.0 F 103 H 18 155/68 H 98 Weight Admit Weight 50.53 kg Weight 50.53 kg Most Recent Monitor Data Heart Rate from ECG 92 NIBP 144/65 Respiration from ECG 20 I&O: 10/18/18 10/19/18 10/20/18 06:59 06:59 06:59 Intake Total 1375 941 561 Output Total 1425 440 840 Balance -50 501 -279 Result Diagrams: 10/19/18 04:48 10/19/18 04:48 Phys Exam - Physical Examination Constitutional: NAD HEENT: moist MMs Neck: no JVD Respiratory: clear to auscultation bilateral Cardiovascular: RRR, no significant murmur Gastrointestinal: soft Musculoskeletal: no edema Psychiatric: normal affect Skin: no rash Dx/Plan (1) HEIDI (acute kidney injury) Code(s): N17.9 - ACUTE KIDNEY FAILURE, UNSPECIFIED Status: Acute (2) Acute encephalopathy Code(s): G93.40 - ENCEPHALOPATHY, UNSPECIFIED Status: Acute (3) COPD (chronic obstructive pulmonary disease) Status: Chronic (4) History of CVA (cerebrovascular accident) Code(s): Z86.73 - PRSNL HX OF TIA (TIA), AND CEREB INFRC W/O RESID DEFICITS Status: Chronic (5) Uncontrolled hypertension Code(s): I10 - ESSENTIAL (PRIMARY) HYPERTENSION Status: Acute (6) Dementia Code(s): F03.90 - UNSPECIFIED DEMENTIA WITHOUT BEHAVIORAL DISTURBANCE Status: Chronic Qualifiers: Dementia type: Alzheimer's disease Dementia behavioral disturbance: with behavioral disturbance (7) Hypertension Code(s): I10 - ESSENTIAL (PRIMARY) HYPERTENSION Status: Chronic (8) CVA (cerebral vascular accident) Code(s): I63.9 - CEREBRAL INFARCTION, UNSPECIFIED Status: Suspected Qualifiers: Precerebral and cerebral artery: unspecified cerebral artery - Plan Plan: CVA -Subacute findings on MRI,unlikely contributor acute mental status change -Hx of CVA Jul 2018, residual right sided weakness -CT negative, EKG showed sinus tach - Echo from 07/2018 showed EF 60-65% -ASA, plavix, statin. - consult stroke team, PT/OT, neurology, appreciate recs - ST recs [facility] diet with aspirate risk, present at prior facility. family consents CAP -CXR showed rt patchy infiltrate, Procal 1.9, LA 1.2 -Levaquin, zosyn, vanc started 10/14-10/18. -transitioned to PO doxycycline -blood and urine cultures NGTD Dehydration, resolved -Pt has not been eating as much for past few days, mucous membranes dry on admission, Hypernatremia improving at an appropriate rate - most likely cause of AMS - poor PO intake, continue maintenance IVF Hypernatremia, resolved -Likely 2/2 to dehydration, see plan above -154 on admission -Continue to monitor with BMPs HEIDI -baseline Cr. 1.2 -Bun/Cr 96/7.42 on admission - suspected 2/2 dehydration, see plan above - nephrology consulted, appreciate recs - creatinine improving - gross hematuria present, hospital day 5. continue to monitor Demand ischemia (elevated trop) -trending Trop, EKG sinus tach Hx CVA -Jul 2018 w/ residual def/hemiplegia Rt arm, aphasia, dysphagia - ST to asses for diet Dementia -Aricept -At baseline she is normally oriented to self per family -Aware HTN -resume home meds when tolerating PO Hx DVT -Bilateral LE DVT w/ IVC filter COPD -duonebs q6h -60 PY smoking hx Anemia -FE studies Code status: DNAR DVT ppx: IVC filter in place Diet: NPO Dispo: LOS >2 midnights
[2018-10-20] MEDS: Amlodipine 10 MG TAB PO SCH (08:34)
[2018-10-20] MEDS: Clopidogrel Bisulfate 75 MG TAB PO SCH (08:34)
[2018-10-20] MEDS: Donepezil HCl 5 MG TAB PO SCH (08:34)
[2018-10-20] MEDS: Doxycycline 100 MG CAP PO SCH (08:35)
[2018-10-20] MEDS: Multivitamin W/ Minerals 1 TAB PO SCH (08:35)
[2018-10-20] MEDS: Metoprolol Tartrate 25 MG TAB PO SCH (08:35)
[2018-10-20] MEDS ORDERED: Aspirin 81 mg Enteric Coated Tablet PO SCH (09:00)
[2018-10-20 14:09] LABS: #Eosinphils 0.1 thou/uL (0.0-0.7); #Lymphocytes 0.6 thou/uL (1.20-3.40); #Monocytes 0.6 thou/uL (0.11-0.59); #Neutrophils 14.6 thou/uL (1.40-6.50); %Basophils 0.1 % (0.0-1.0); %Eosinophils 0.6 % (0.0-10.0); %Lymphocytes 3.8 % (21.0-51.0); %Monocytes 3.6 % (0.0-10.0); Hemoglobin 11.1 g/dL (12.0-16.0); Mean Corpuscular HGB CONC 31.7 g/dL (32.0-36.0); Mean Corpuscular Hemoglobin 27.9 pg (27.0-31.0); Mean Corpuscular Volume 88.1 fL (78.0-98.0); Mean Platelet Volume 7.9 fL (7.4-10.4); Platelet Count 290 thou/uL (130-400); RBC Distribution Width 15.7 % (11.5-14.5); Red Blood Cell (RBC) Count 3.96 mill/uL (4.20-5.40); White Blood Cell (WBC) Count 15.9 thou/uL (4.8-10.8)
[2018-10-20 14:25] LABS: BUN (Urea Nitrogen) 58 mg/dL (9.8-20.1); Calc. Creatinine Clearance 6 mL/min (70-130); Calcium 8.5 mg/dL (7.8-10.44); Carbon Dioxide 23 mmol/L (23-31); Estimated GFR-MDRD 8; Glucose 133 mg/dL (83-110)
--- NOTE | 2018-10-20 14:58 | PRG ---
DATE OF SERVICE: 10/20/2018 Ms. Yuen is getting her bed bath this morning, in no distress. She is awake, alert, and transferred into the correction today. Job ID: [id number]
[2018-10-20 15:09] LABS: Chloride 111 mmol/L (98-107); Potassium 3.9 mmol/L (3.5-5.1); Sodium 145 mmol/L (136-145)
[2018-10-20 15:11] LABS: Anion Gap 21 mmol/L (10-20)
[2018-10-20 15:40] VITALS: BP 155/72; TEMP 98.8
--- NOTE | 2018-10-21 00:05 | DIS ---
DATE OF ADMISSION: 10/14/2018 DATE OF DISCHARGE: 10/20/2018 ADMITTING ATTENDING: Monica Kitchen MD DISCHARGE ATTENDING: Dr. Park. RESIDENT: Dr. Markos Flower. CONSULTS: 1. Nephrology, Dr. Bethea. 2. Neurology, Dr. Dempsey. PROCEDURES AND IMAGIN. Brain CT significant for acute intracranial findings and chronic ischemic change. 2. Chest x-ray significant for interval development of linear and patchy densities in the medial right base, which could be related to developing pneumonia. Followup of resolution is recommended. 3. Brain MRI, Impression;. a. Subacute appearing lacunar infarcts involving subcortical right frontal lobe white matter as well as the right posterior splenium of corpus callosum. b. Severe chronic small-vessel white matter ischemic change with remote lacunar infarcts involving the cerebellar hemispheres left greater than right. Also, remote lacunar infarct involving the left paramedian funmilayo. c. Prominent cerebral and cerebellar atrophy. PRIMARY DIAGNOSIS: Dehydration, resolved. SECONDARY DIAGNOSES: 1. Rule out cerebrovascular accident. 2. Community-acquired pneumonia. 3. Hyponatremia. 4. Acute kidney injury. 5. Demand ischemia. 6. History of Cerebrovascular accident. 7. Dementia. 8. Hypertension. 9. History of deep venous thrombosis. 10. Chronic obstructive pulmonary disease. 11. Anemia. DISCHARGE MEDICATIONS: 1. Lipitor 20 mg p.o. at bedtime. 2. Saroj-Dur 1 tablet p.o. daily. 3. Tylenol 650 mg p.o. q.4 p.r.n. 4. Maalox 30 mL p.o. q.4 p.r.n. 5. Norvasc 10 mg p.o. daily. 6. Aspirin 81 mg p.o. daily. 7. Dulcolax 10 mg p.o. daily p.r.n. 8. Clonidine 0.2 mg TD q.7 days. 9. Plavix 75 mg p.o. daily. 10. Colace 100 mg p.o. b.i.d. p.r.n. 11. Aricept 5 mg p.o. b.i.d. 12. Famotidine 20 mg p.o. q.p.m. 13. Toprol 12.5 mg p.o. b.i.d. 14. Doxycycline 100 mg p.o. b.i.d. for 5 days. DISCONTINUED MEDICATIONS: None. HISTORY OF PRESENT ILLNESS/HOSPITAL COURSE: Ms. Yuen is an 83-year-old female who presented from the residential with a history of CVA in 07/2018. She had residual right-sided deficits from that. She also has a past medical history significant for COPD and DVT and IVC filter placement and also has dementia, presenting for altered mental status. At that time, the patient was noted to be normal at 9:00 a.m. in the morning; at 3, she was altered. The altered they were referring to is the patient being aphasic and some left-sided facial droop. At baseline, she cannot move her arm or leg and has difficulty communicating at home. She was also dysphagic and now recommended to have mechanical soft/nectar thick diet. In the emergency department, her CT head was negative. Her creatinine was elevated to 7.42 from a baseline of 1.2. Chest x-ray showed right lung patchy infiltrates. It is believed at this time the patient could have had a CVA, so permissive hypertension was allowed. An MRI was completed. The following day, the MRI reported mainly subacute and old infarctions. Neurology was consulted and agreed in that regard. The patient's creatinine continued to remain elevated and did not respond as quickly as anticipated to IV fluid rehydration. So at that point, Nephrology was consulted and recommended to continue the current course of IV fluid rehydration. With the treatment for community-acquired pneumonia and IV rehydration, the patient slowly recovered, and it is likely that the patient's kidney function returned to baseline. The patient continued to improve to her baseline, which was in general poor prognostically with poor p.o. intake and difficulty moving around if at all. Family was spoken with many times and determined that the patient is okay to be discharged back to the residential as she had returned to baseline. DISPOSITION: Guarded secondary to multiple comorbidities and poor prognosis. DISCHARGE INSTRUCTIONS: 1. Return to long-term care facility. 2. Activity as tolerated. 3. Diet is regular, nectar thick liquids and mechanical soft foods. Job ID: [id number]
--- NOTE | 2018-10-21 04:09 | PRG ---
DATE OF SERVICE: 10/20/2018 SUBJECTIVE: The patient is seen and examined. OBJECTIVE: VITAL SIGNS: Noted with the following vital signs; afebrile at temperature 98.8, pulse 95, respiratory rate of 20, blood pressure 155/72 to 175/77. HEENT: Unremarkable. Moist oral mucosa. Neck was supple. No conjunctival injection or icterus. CARDIOVASCULAR SYSTEM: First and second heart sounds were heard. RESPIRATORY SYSTEM: Clear to auscultation. DIGESTIVE SYSTEM: Revealed a benign abdomen with positive bowel sounds. EXTREMITIES: No peripheral edema. SKIN: No new gross rash. LYMPHATICS: No peripheral lymphadenopathy. LABORATORY INVESTIGATION: Showed a creatinine of 5.95 with a BUN of 58. IMPRESSION: 1. Acute on chronic kidney disease. 2. Metabolic acidosis, improved. 3. Hyponatremia, resolved. PLAN: 1. We will continue with current renal supportive measures. The patient is not a great candidate for renal replacement therapy (hemodialysis). 2. Renally dose all medications for extremely low GFR. 3. Further management to be dependent on the clinical course. Job ID: [id number]
--- NOTE | 2018-10-22 19:24 | EKG ---
Test Reason : [id number] Blood Pressure : / mmHG Vent. Rate : 104 BPM Atrial Rate : 104 BPM P-R Int : 126 ms QRS Dur : 070 ms QT Int : 344 ms P-R-T Axes : 067 033 062 degrees QTc Int : 452 ms Sinus tachycardia Otherwise normal ECG Confirmed by KARY SEQUEIRA DO ([id number]), editor producer JAZZY HINDS ([id number]) on 10/22/2018 7:23:41 PM Referred By: Confirmed By:KARY SEQUEIRA DO
== END 2018-10-20 18:28 | DRG 871 ==
LOC: ERS 15:29 → 2SE 17:35
PROVIDERS: ADMIT Family Medicine; ATTEND Family Medicine
PROC: 30233N1 Transfusion of Nonautologous Red Blood Cells into Peripheral Vein, Percutaneous Approach (ICD-10-PCS; principal; 2018-10-15)
DX: A41.9 Sepsis, unspecified organism (principal); I63.9 Cerebral infarction, unspecified; J18.9 Pneumonia, unspecified organism; G93.41 Metabolic encephalopathy; N17.0 Acute kidney failure with tubular necrosis; I69.351 Hemiplegia and hemiparesis following cerebral infarction affecting right dominant side; E87.0 Hyperosmolality and hypernatremia; I24.8 Other forms of acute ischemic heart disease; I82.403 Acute embolism and thrombosis of unspecified deep veins of lower extremity, bilateral; E87.2 Acidosis; I69.320 Aphasia following cerebral infarction; N18.9 Chronic kidney disease, unspecified; I69.391 Dysphagia following cerebral infarction; R13.10 Dysphagia, unspecified; F03.90 Unspecified dementia, unspecified severity, without behavioral disturbance, psychotic disturbance, mood disturbance, and anxiety; I12.9 Hypertensive chronic kidney disease with stage 1 through stage 4 chronic kidney disease, or unspecified chronic kidney disease; I25.10 Atherosclerotic heart disease of native coronary artery without angina pectoris; E86.0 Dehydration; D64.9 Anemia, unspecified; J44.9 Chronic obstructive pulmonary disease, unspecified; F17.210 Nicotine dependence, cigarettes, uncomplicated; Z79.82 Long term (current) use of aspirin; Z95.1 Presence of aortocoronary bypass graft
CPT/HCPCS: 12001; 36415; 36416; 36430; 36556; 51702; 70450; 70551; 71045; 80048; 80053; 80061; 80202; 81001; 82553; 82570; 82728; 83540; 83550; 83605; 83880; 83930; 83935; 84145; 84300; 84443; 84484; 85025; 85049; 85300; 85362; 85379; 85384; 85610; 85730; 86850; 86900; 86901; 87040; 87086; 93005; 94640; 96365; J1956; J2001; J2543; J3370; J3480; J7050; J7070; J7120; J7620; P9016